=== PATIENT | female | born 1950 | race Caucasian/White ===

== ENCOUNTER 2017-05-25 14:04 | Inpatient (IN) | payer OTHER ==
[~2017-05-25] VITALS: Ht 157.5 cm; Wt 66.4 kg
[~2017-05-25 14:04] MED LIST: AMLO5TAB2 PO; ASPI-1005 PO; ATOR20TA65 PO; CARV25TA77 PO; DOXE25CA3 PO; EZET10 PO; FLUT16H NASAL; GUAI600T50 PO; INSULIN 70/30 SQ; LISI40TA4 PO; MULT-1258 PO; PARO-37 PO; ROPI1TAB11 PO; TRAM50TA4 PO; TRIAMCINOLON TP; iron PO; omega xl PO
[2017-05-25] MEDS ORDERED: ACETAMINOPHEN 325 MG TAB ONE (14:44)
[2017-05-25 14:45] LABS: BASOPHILS % (AUTO) 0.5 % (0.0-5.0); EOSINOPHILS % (AUTO) 1.3 % (0.0-8.0); HEMATOCRIT 35.9 % (36-48); LYMPHOCYTES % (AUTO) 4.2 % (21.0-51.0); MEAN CORPUSCULAR HEMOGLOBIN 29.8 pg (27.0-33.0); MEAN CORPUSCULAR HGB CONC 34.5 g/dL (32.0-36.0); MEAN CORPUSCULAR VOLUME 86.4 fL (79-99); MONOCYTES % (AUTO) 6.9 % (3.0-13.0); NEUTROPHILS % (AUTO) 87.1 % (40.0-77.0); PLATELET COUNT (AUTO) 112 K/uL (130-400); RED BLOOD CELL COUNT(AUTO) 4.15 MIL/uL (4.00-5.50); RED CELL DISTRIBUTION WIDTH 13.8 % (11.0-15.5)
[2017-05-25 14:46] LABS: CREATININE 7.3 mg/dL (0.5-1.5); POTASSIUM 4.9 mmol/L (3.5-5.1)
[2017-05-25 15:00] LABS: ALBUMIN 3.7 g/dL (3.5-5.0); BILIRUBIN,TOTAL 0.5 mg/dL (0.2-1.0); CREATINE KINASE MB 4.1 ng/mL (0.5-3.6)
[2017-05-25] MEDS ORDERED: CEFTRIAXONE SODIUM 1 GM ONE (17:57)
[2017-05-25] MEDS ORDERED: SODIUM CHLORIDE 0.9% 50 ML IV ONE (17:57)
[2017-05-25] MEDS ORDERED: IBUPROFEN 600 MG TABLET ONE (18:08)
[2017-05-25 18:25] VITALS: BP 183/93
[2017-05-25] MEDS ORDERED: ONDANSETRON HCL MDV 20ML 2 MG/ML VIAL IVP PRN (18:45)
[2017-05-25] MEDS ORDERED: ACETAMINOPHEN 325 MG TAB PO PRN ×2 (18:45)
[2017-05-25] MEDS ORDERED: CLONIDINE HCL 0.1 MG TABLET PO PRN (18:45)
[2017-05-25] MEDS ORDERED: LACTULOSE 20 GM/30 ML UDCUP PO PRN (18:45)
[2017-05-25] MEDS ORDERED: HYDR-3421 PO (18:51)
[2017-05-25] MEDS ORDERED: OXYMETAZOLINE HCL SPRAY 15 ML BOTTLE ONE (21:32)
[2017-05-25] MEDS ORDERED: GLUCAGON 1MG KIT 1 MG ML IM PRN (21:45)
[2017-05-25] MEDS ORDERED: DEXTROSE 50%-WATER 50 ML DISP.SYRIN IV PRN (21:45)
[2017-05-25] MEDS: INSULIN HUMULIN R 100 UNIT/ML 3ML SQ SCH (22:40)
[2017-05-25] MEDS ORDERED: VANCOMYCIN 1GM+NS 250ML 250 ML IV SCH (23:00)
[2017-05-25] MEDS ORDERED: VANCOMYCIN PROTOCOL PER PHARMACY IV SCH (23:00)
[2017-05-25 23:53] VITALS: BP 169/76
[2017-05-26 00:09] LABS: APPEARANCE,URINE Clear (CLEAR); BILIRUBIN,URINE Negative (NEGATIVE); COLOR,URINE Yellow (YELLOW); GLUCOSE, URINE (UA) 500 mg/dL (NEGATIVE); KETONES,URINE Negative (NEGATIVE); LEUKOCYTE ESTERASE ,URINE Negative (NEGATIVE); NITRATE,URINE Negative (NEGATIVE); OCCULT BLOOD,URINE Moderate (NEGATIVE); PH,URINE >=9.0 (5.0-8.0); PROTEIN,URINE >=1000 (NEGATIVE); UROBILINOGEN,URINE 0.2 mg/dL (0.2-1.0)
[2017-05-26 00:31] LABS: BACTERIA,URINE None Seen /HPF (None Seen); MUCUS,URINE Few LPF (None Seen); SQUAMOUS EPITHELIAL CELL,UR Few /HPF (0-2); WBC,URINE None Seen /HPF (0-1)
[2017-05-26 04:00] VITALS: BP 153/71
[2017-05-26] MEDS: INSULIN HUMULIN R 100 UNIT/ML 3ML SQ SCH ×4 (06:27→21:00)
[2017-05-26 08:23] VITALS: BP 127/70
[2017-05-26] MEDS ORDERED: ZOSYN 3.375GM+NS 50ML 50 ML IV SCH (09:15)
[2017-05-26] MEDS ORDERED: HYDROXYZINE HCL 25 MG TABLET PO PRN (10:00)
[2017-05-26 11:55] VITALS: BP 166/80
[2017-05-26] MEDS: MEROPENEM 1 GM VIAL IVP SCH ×2 (12:29→21:08)
[2017-05-26] MEDS: LORAZEPAM 2 MG/ML 1 ML VIAL IVP SCH (13:29)
[2017-05-26] MEDS: TRAMADOL HCL 50 MG TABLET PO PRN ×2 (13:29→21:38)
[2017-05-26] MEDS: ROPINIROLE HCL 1 MG TABLET PO SCH ×2 (15:00→21:09)
[2017-05-26 15:32] VITALS: BP 161/84
[2017-05-26] MEDS: HYDROMORPHONE 1 MG/1 ML AMP IVP PRN (17:27)
[2017-05-26] MEDS ORDERED: CEFTRIAXONE SODIUM 1 GM IVP SCH (18:00)
[2017-05-26 19:56] VITALS: BP 178/84
[2017-05-26] MEDS: FLUTICASONE PROPIONATE 50MCG/SPRAY 16 GM BOTTLE EN SCH (21:09)
[2017-05-26] MEDS: AMLODIPINE BESYLATE 5 MG TAB PO SCH (21:09)
[2017-05-26] MEDS: DOXEPIN HCL 25 MG CAP PO SCH (21:09)
[2017-05-26] MEDS: GUAIFENESIN 600 MG TABLET.ER PO SCH (21:09)
[2017-05-26] MEDS: CARVEDILOL 25 MG TABLET PO SCH (21:10)
[2017-05-26 23:54] VITALS: BP 152/75
[2017-05-27] MEDS: HYDROMORPHONE 1 MG/1 ML AMP IVP PRN ×3 (01:52→23:34)
[2017-05-27 04:00] VITALS: BP 138/60
[2017-05-27 04:40] LABS: HEMATOCRIT 31.6 % (36-48); MEAN CORPUSCULAR HEMOGLOBIN 30.1 pg (27.0-33.0); MEAN CORPUSCULAR HGB CONC 34.7 g/dL (32.0-36.0); MEAN CORPUSCULAR VOLUME 86.7 fL (79-99); PLATELET COUNT (AUTO) 94 K/uL (130-400); RED BLOOD CELL COUNT(AUTO) 3.64 MIL/uL (4.00-5.50); RED CELL DISTRIBUTION WIDTH 13.9 % (11.0-15.5)
[2017-05-27 04:59] LABS: POTASSIUM 4.3 mmol/L (3.5-5.1)
[2017-05-27 05:13] LABS: CREATININE 8.8 mg/dL (0.5-1.5)
[2017-05-27] MEDS ORDERED: LIDOCAINE/PRILOCAINE CREAM 30 GM TUBE TP SCH (06:00)
[2017-05-27] MEDS: INSULIN HUMULIN R 100 UNIT/ML 3ML SQ SCH ×4 (06:22→21:00)
[2017-05-27] MEDS: LORAZEPAM 2 MG/ML 1 ML VIAL IVP SCH (08:35)
[2017-05-27] MEDS: LISINOPRIL 40 MG TABLET PO SCH (09:00)
[2017-05-27] MEDS: CARVEDILOL 25 MG TABLET PO SCH ×2 (09:00→20:37)
[2017-05-27] MEDS: AMLODIPINE BESYLATE 5 MG TAB PO SCH ×2 (09:00→20:37)
[2017-05-27] MEDS ORDERED: HEPARIN SODIUM 5000UNIT/ML 1ML VIAL IJ PRN (09:30)
[2017-05-27] MEDS ORDERED: SODIUM CHLORIDE 0.9% 1000ML 1,000 ML IV PRN (09:30)
[2017-05-27] MEDS ORDERED: 0.9% SODIUM CHLORIDE 250 ML IV BAG IV PRN (09:30)
[2017-05-27] MEDS ORDERED: ALBUMIN (HUMAN) 25% 100 ML IV PRN (09:30)
[2017-05-27 10:07] VITALS: BP 132/80
[2017-05-27 12:29] VITALS: BP_SYST 117; BP_SYST 185; BP_DIAS 70; BP_DIAS 88
[2017-05-27] MEDS: ASPIRIN 81MG TAB.CHEW PO SCH (12:35)
[2017-05-27] MEDS: PAROXETINE HCL 20 MG TABLET PO SCH (12:35)
[2017-05-27] MEDS: ROPINIROLE HCL 1 MG TABLET PO SCH ×3 (12:35→20:37)
[2017-05-27] MEDS: GUAIFENESIN 600 MG TABLET.ER PO SCH ×2 (12:36→20:37)
[2017-05-27] MEDS: MEROPENEM 1 GM VIAL IVP SCH ×2 (12:40→20:42)
[2017-05-27] MEDS: FLUTICASONE PROPIONATE 50MCG/SPRAY 16 GM BOTTLE EN SCH ×2 (12:51→20:35)
[2017-05-27 17:35] VITALS: BP 157/72
[2017-05-27 19:00] VITALS: BP 166/73
[2017-05-27] MEDS: DOXEPIN HCL 25 MG CAP PO SCH (20:37)
[2017-05-27] MEDS: TRAMADOL HCL 50 MG TABLET PO PRN (20:48)
[2017-05-27 23:00] VITALS: BP 153/77
[2017-05-28 03:00] VITALS: BP 140/57
[2017-05-28 04:55] LABS: HEMATOCRIT 34.1 % (36-48); MEAN CORPUSCULAR HEMOGLOBIN 29.4 pg (27.0-33.0); MEAN CORPUSCULAR HGB CONC 33.3 g/dL (32.0-36.0); MEAN CORPUSCULAR VOLUME 88.1 fL (79-99); PLATELET COUNT (AUTO) 112 K/uL (130-400); RED BLOOD CELL COUNT(AUTO) 3.87 MIL/uL (4.00-5.50); RED CELL DISTRIBUTION WIDTH 14.4 % (11.0-15.5); WHITE BLOOD COUNT (AUTO) 8.2 K/uL (4.8-10.8)
[2017-05-28 05:17] LABS: CREATININE 5.9 mg/dL (0.5-1.5); POTASSIUM 3.6 mmol/L (3.5-5.1)
[2017-05-28] MEDS: HYDROMORPHONE 1 MG/1 ML AMP IVP PRN ×3 (05:32→22:19)
[2017-05-28] MEDS: INSULIN HUMULIN R 100 UNIT/ML 3ML SQ SCH ×4 (07:30→20:53)
[2017-05-28 08:11] VITALS: BP 136/73
[2017-05-28] MEDS: LISINOPRIL 40 MG TABLET PO SCH (09:22)
[2017-05-28] MEDS: PAROXETINE HCL 20 MG TABLET PO SCH (09:22)
[2017-05-28] MEDS: AMLODIPINE BESYLATE 5 MG TAB PO SCH ×2 (09:22→20:40)
[2017-05-28] MEDS: ROPINIROLE HCL 1 MG TABLET PO SCH ×3 (09:22→20:40)
[2017-05-28] MEDS: CARVEDILOL 25 MG TABLET PO SCH ×2 (09:23→20:41)
[2017-05-28] MEDS: MEROPENEM 1 GM VIAL IVP SCH ×2 (09:23→20:41)
[2017-05-28] MEDS: GUAIFENESIN 600 MG TABLET.ER PO SCH ×2 (09:23→20:40)
[2017-05-28] MEDS: ASPIRIN 81MG TAB.CHEW PO SCH (09:23)
[2017-05-28] MEDS: LORAZEPAM 2 MG/ML 1 ML VIAL IVP SCH (09:24)
[2017-05-28] MEDS: FLUTICASONE PROPIONATE 50MCG/SPRAY 16 GM BOTTLE EN SCH ×2 (09:25→20:43)
[2017-05-28 12:17] VITALS: BP 140/72
[2017-05-28 15:50] VITALS: BP 125/67
[2017-05-28 20:00] VITALS: BP 135/69
[2017-05-28] MEDS: DOXEPIN HCL 25 MG CAP PO SCH (20:40)
[2017-05-29] VITALS: BP 138/89
[2017-05-29 04:00] VITALS: BP 138/78
[2017-05-29] MEDS: HYDROMORPHONE 1 MG/1 ML AMP IVP PRN ×3 (04:16→18:39)
[2017-05-29 06:29] LABS: HEMATOCRIT 32.9 % (36-48); MEAN CORPUSCULAR HEMOGLOBIN 29.9 pg (27.0-33.0); MEAN CORPUSCULAR HGB CONC 34.5 g/dL (32.0-36.0); MEAN CORPUSCULAR VOLUME 86.5 fL (79-99); PLATELET COUNT (AUTO) 133 K/uL (130-400); WHITE BLOOD COUNT (AUTO) 5.9 K/uL (4.8-10.8)
[2017-05-29 06:36] LABS: CREATININE 7.2 mg/dL (0.5-1.5); POTASSIUM 4.4 mmol/L (3.5-5.1)
[2017-05-29] MEDS: TRAMADOL HCL 50 MG TABLET PO PRN ×2 (06:41→20:43)
[2017-05-29] MEDS: LORAZEPAM 2 MG/ML 1 ML VIAL IVP SCH (07:48)
[2017-05-29 08:19] VITALS: BP 147/73
[2017-05-29] MEDS: PAROXETINE HCL 20 MG TABLET PO SCH (09:01)
[2017-05-29] MEDS: AMLODIPINE BESYLATE 5 MG TAB PO SCH ×2 (09:01→20:44)
[2017-05-29] MEDS: ROPINIROLE HCL 1 MG TABLET PO SCH ×3 (09:02→20:43)
[2017-05-29] MEDS: GUAIFENESIN 600 MG TABLET.ER PO SCH ×2 (09:02→20:44)
[2017-05-29] MEDS: LISINOPRIL 40 MG TABLET PO SCH (09:02)
[2017-05-29] MEDS: CARVEDILOL 25 MG TABLET PO SCH ×2 (09:09→20:44)
[2017-05-29] MEDS: ASPIRIN 81MG TAB.CHEW PO SCH (09:09)
[2017-05-29] MEDS: MEROPENEM 1 GM VIAL IVP SCH ×2 (09:09→20:44)
[2017-05-29] MEDS: INSULIN HUMULIN R 100 UNIT/ML 3ML SQ SCH ×4 (09:28→20:58)
[2017-05-29] MEDS: FLUTICASONE PROPIONATE 50MCG/SPRAY 16 GM BOTTLE EN SCH ×2 (09:38→20:45)
[2017-05-29 11:38] VITALS: BP 152/67
[2017-05-29 16:56] VITALS: BP 116/59
[2017-05-29 20:00] VITALS: BP 138/68
[2017-05-29] MEDS: DOXEPIN HCL 25 MG CAP PO SCH (20:43)
[2017-05-29] MEDS ORDERED: VANCOMYCIN 1GM+NS 250ML 0 ML IV ONE (22:16)
[2017-05-30] VITALS (7 sets, daily range): BP systolic 119–157; BP diastolic 62–96
[2017-05-30] MEDS: HYDROMORPHONE 1 MG/1 ML AMP IVP PRN ×4 (00:30→19:06)
[2017-05-30] MEDS: TRAMADOL HCL 50 MG TABLET PO PRN ×3 (04:23→17:30)
[2017-05-30 05:59] LABS: HEMATOCRIT 32.5 % (36-48); MEAN CORPUSCULAR HEMOGLOBIN 31.2 pg (27.0-33.0); MEAN CORPUSCULAR HGB CONC 36.4 g/dL (32.0-36.0); MEAN CORPUSCULAR VOLUME 85.6 fL (79-99); NUCLEATED RED BLOOD CELLS 0.1 % (0.0-0.19); PLATELET COUNT (AUTO) 148 K/uL (130-400); WHITE BLOOD COUNT (AUTO) 5.5 K/uL (4.8-10.8)
[2017-05-30 06:09] LABS: ALBUMIN 2.8 g/dL (3.5-5.0); BILIRUBIN,TOTAL 0.9 mg/dL (0.2-1.0); PHOSPHORUS 7.9 mg/dL (2.5-4.9); POTASSIUM 4.7 mmol/L (3.5-5.1); TOTAL PROTEIN, SERUM 7.3 g/dL (6.0-8.3)
[2017-05-30] MEDS: INSULIN HUMULIN R 100 UNIT/ML 3ML SQ SCH ×4 (06:14→21:00)
[2017-05-30 06:18] LABS: CREATININE 8.4 mg/dL (0.5-1.5)
[2017-05-30] MEDS: AMLODIPINE BESYLATE 5 MG TAB PO SCH ×2 (09:19→21:07)
[2017-05-30] MEDS: MEROPENEM 1 GM VIAL IVP SCH ×2 (09:19→21:07)
[2017-05-30] MEDS: CARVEDILOL 25 MG TABLET PO SCH ×2 (09:20→21:08)
[2017-05-30] MEDS: ROPINIROLE HCL 1 MG TABLET PO SCH ×3 (09:20→21:07)
[2017-05-30] MEDS: ASPIRIN 81MG TAB.CHEW PO SCH (09:20)
[2017-05-30] MEDS: PAROXETINE HCL 20 MG TABLET PO SCH (09:20)
[2017-05-30] MEDS: GUAIFENESIN 600 MG TABLET.ER PO SCH ×2 (09:20→21:08)
[2017-05-30] MEDS: LISINOPRIL 40 MG TABLET PO SCH (09:20)
[2017-05-30] MEDS: FLUTICASONE PROPIONATE 50MCG/SPRAY 16 GM BOTTLE EN SCH ×2 (09:26→21:20)
[2017-05-30] MEDS ORDERED: CEFAZOLIN 2GM / 50 ML 50 ML IV SCH (09:30)
[2017-05-30] MEDS: LORAZEPAM 2 MG/ML 1 ML VIAL IVP SCH (13:30)
[2017-05-30] MEDS: DOXEPIN HCL 25 MG CAP PO SCH (21:07)
[2017-05-31] MEDS: HYDROMORPHONE 1 MG/1 ML AMP IVP PRN ×5 (00:55→21:58)
[2017-05-31 04:00] VITALS: BP 158/72
[2017-05-31 06:30] LABS: CREATININE 6.1 mg/dL (0.5-1.5); POTASSIUM 4.4 mmol/L (3.5-5.1)
[2017-05-31] MEDS: INSULIN HUMULIN R 100 UNIT/ML 3ML SQ SCH ×4 (07:30→20:57)
[2017-05-31] MEDS: CEFAZOLIN SODIUM 1 GM VIAL IVP SCH (07:45)
[2017-05-31 08:00] VITALS: BP 139/72
[2017-05-31] MEDS: GUAIFENESIN 600 MG TABLET.ER PO SCH ×2 (09:46→20:51)
[2017-05-31] MEDS: ROPINIROLE HCL 1 MG TABLET PO SCH ×3 (09:46→20:51)
[2017-05-31] MEDS: MEROPENEM 1 GM VIAL IVP SCH (09:47)
[2017-05-31] MEDS: CARVEDILOL 25 MG TABLET PO SCH ×2 (09:47→20:52)
[2017-05-31] MEDS: AMLODIPINE BESYLATE 5 MG TAB PO SCH ×2 (09:47→20:51)
[2017-05-31] MEDS: LISINOPRIL 40 MG TABLET PO SCH (09:47)
[2017-05-31] MEDS: PAROXETINE HCL 20 MG TABLET PO SCH (09:47)
[2017-05-31] MEDS: ASPIRIN 81MG TAB.CHEW PO SCH (09:47)
[2017-05-31] MEDS: FLUTICASONE PROPIONATE 50MCG/SPRAY 16 GM BOTTLE EN SCH ×2 (09:50→20:51)
[2017-05-31 11:00] VITALS: BP 159/76
[2017-05-31 16:00] VITALS: BP 131/68
[2017-05-31 20:00] VITALS: BP 153/74
[2017-05-31] MEDS: DOXEPIN HCL 25 MG CAP PO SCH (20:51)
[2017-06-01] VITALS (7 sets, daily range): BP systolic 129–163; BP diastolic 65–86
[2017-06-01] MEDS: HYDROMORPHONE 1 MG/1 ML AMP IVP PRN ×5 (03:04→20:53)
[2017-06-01 04:54] LABS: HEMATOCRIT 29.5 % (36-48); MEAN CORPUSCULAR HEMOGLOBIN 30.5 pg (27.0-33.0); MEAN CORPUSCULAR HGB CONC 35.4 g/dL (32.0-36.0); PLATELET COUNT (AUTO) 146 K/uL (130-400); RED BLOOD CELL COUNT(AUTO) 3.42 MIL/uL (4.00-5.50); RED CELL DISTRIBUTION WIDTH 13.8 % (11.0-15.5); WHITE BLOOD COUNT (AUTO) 8.4 K/uL (4.8-10.8)
[2017-06-01 05:03] LABS: CREATININE 7.3 mg/dL (0.5-1.5); POTASSIUM 4.7 mmol/L (3.5-5.1)
[2017-06-01] MEDS: INSULIN HUMULIN R 100 UNIT/ML 3ML SQ SCH ×4 (06:29→21:03)
[2017-06-01] MEDS: LISINOPRIL 40 MG TABLET PO SCH (08:12)
[2017-06-01] MEDS: ROPINIROLE HCL 1 MG TABLET PO SCH ×3 (08:12→20:54)
[2017-06-01] MEDS: GUAIFENESIN 600 MG TABLET.ER PO SCH ×2 (08:12→20:53)
[2017-06-01] MEDS: AMLODIPINE BESYLATE 5 MG TAB PO SCH ×2 (08:12→20:54)
[2017-06-01] MEDS: ASPIRIN 81MG TAB.CHEW PO SCH (08:12)
[2017-06-01] MEDS: PAROXETINE HCL 20 MG TABLET PO SCH (08:12)
[2017-06-01] MEDS: CARVEDILOL 25 MG TABLET PO SCH ×2 (08:14→20:54)
[2017-06-01] MEDS ORDERED: VANCOMYCIN 1GM+NS 250ML 250 ML IV SCH (09:00)
[2017-06-01] MEDS: FLUTICASONE PROPIONATE 50MCG/SPRAY 16 GM BOTTLE EN SCH ×2 (10:17→21:00)
[2017-06-01] MEDS: CEFAZOLIN SODIUM 1 GM VIAL IVP SCH (19:30)
[2017-06-01] MEDS: DOXEPIN HCL 25 MG CAP PO SCH (20:54)
[2017-06-02] MEDS: HYDROMORPHONE 1 MG/1 ML AMP IVP PRN ×6 (00:49→21:50)
[2017-06-02 03:46] VITALS: BP 134/69
[2017-06-02] MEDS: INSULIN HUMULIN R 100 UNIT/ML 3ML SQ SCH ×4 (07:30→21:41)
[2017-06-02 08:00] VITALS: BP 142/77
[2017-06-02] MEDS: PAROXETINE HCL 20 MG TABLET PO SCH (08:56)
[2017-06-02] MEDS: GUAIFENESIN 600 MG TABLET.ER PO SCH ×2 (08:56→21:36)
[2017-06-02] MEDS: ASPIRIN 81MG TAB.CHEW PO SCH (08:56)
[2017-06-02] MEDS: CARVEDILOL 25 MG TABLET PO SCH ×2 (08:56→21:37)
[2017-06-02] MEDS: AMLODIPINE BESYLATE 5 MG TAB PO SCH ×2 (08:57→21:37)
[2017-06-02] MEDS: ROPINIROLE HCL 1 MG TABLET PO SCH ×3 (08:57→21:36)
[2017-06-02] MEDS: FLUTICASONE PROPIONATE 50MCG/SPRAY 16 GM BOTTLE EN SCH ×2 (09:05→21:36)
[2017-06-02] MEDS: LISINOPRIL 40 MG TABLET PO SCH (09:08)
[2017-06-02 12:00] VITALS: BP 162/77
[2017-06-02 16:00] VITALS: BP 138/65
[2017-06-02 19:29] VITALS: BP 139/67
[2017-06-02] MEDS: TRAMADOL HCL 50 MG TABLET PO PRN (19:56)
[2017-06-02] MEDS: DOXEPIN HCL 25 MG CAP PO SCH (21:37)
[2017-06-02 23:32] VITALS: BP 142/65
[2017-06-03] MEDS: HYDROMORPHONE 1 MG/1 ML AMP IVP PRN ×4 (01:56→15:22)
[2017-06-03 03:45] VITALS: BP 122/67
[2017-06-03] MEDS: INSULIN HUMULIN R 100 UNIT/ML 3ML SQ SCH ×2 (06:27→11:30)
[2017-06-03 07:00] VITALS: BP 134/84
[2017-06-03] MEDS: LISINOPRIL 40 MG TABLET PO SCH (08:00)
[2017-06-03] MEDS: ROPINIROLE HCL 1 MG TABLET PO SCH ×2 (08:39→15:21)
[2017-06-03] MEDS: GUAIFENESIN 600 MG TABLET.ER PO SCH (08:39)
[2017-06-03] MEDS: PAROXETINE HCL 20 MG TABLET PO SCH (08:39)
[2017-06-03] MEDS: ASPIRIN 81MG TAB.CHEW PO SCH (08:40)
[2017-06-03] MEDS: FLUTICASONE PROPIONATE 50MCG/SPRAY 16 GM BOTTLE EN SCH (08:40)
[2017-06-03] MEDS: CARVEDILOL 25 MG TABLET PO SCH (09:00)
[2017-06-03] MEDS: AMLODIPINE BESYLATE 5 MG TAB PO SCH (09:00)
[2017-06-03] MEDS ORDERED: DOXE50CA4 PO (10:29)
[2017-06-03 11:20] VITALS: BP 131/79
[2017-06-03] MEDS ORDERED: SODIUM CHLORIDE 0.9% 100 ML IV ONE (14:58)
[2017-06-03] MEDS: CEFAZOLIN SODIUM 1 GM VIAL IVP SCH (15:20)
== END 2017-06-03 17:15 | disposition home or self-care (01) | DRG 871 ==
LOC: EDH 14:04 → OBSVTOIN 17:30 → 3CH 17:30
PROVIDERS: ADMIT Family Medicine; ATTEND Family Medicine
PROC: 5A1D70Z Performance of Urinary Filtration, Intermittent, Less than 6 Hours Per Day (ICD-10-PCS; principal; 2017-05-27)
PROC: 5A1D70Z Performance of Urinary Filtration, Intermittent, Less than 6 Hours Per Day (ICD-10-PCS; 2017-05-30)
PROC: 5A1D70Z Performance of Urinary Filtration, Intermittent, Less than 6 Hours Per Day (ICD-10-PCS; 2017-06-01)
PROC: 5A1D70Z Performance of Urinary Filtration, Intermittent, Less than 6 Hours Per Day (ICD-10-PCS; 2017-06-03)
DX: A41.01 Sepsis due to Methicillin susceptible Staphylococcus aureus (principal); N18.6 End stage renal disease; I13.2 Hypertensive heart and chronic kidney disease with heart failure and with stage 5 chronic kidney disease, or end stage renal disease; E11.21 Type 2 diabetes mellitus with diabetic nephropathy; E11.40 Type 2 diabetes mellitus with diabetic neuropathy, unspecified; L02.214 Cutaneous abscess of groin; R45.851 Suicidal ideations; E11.22 Type 2 diabetes mellitus with diabetic chronic kidney disease; B96.89 Other specified bacterial agents as the cause of diseases classified elsewhere; D64.9 Anemia, unspecified; E11.51 Type 2 diabetes mellitus with diabetic peripheral angiopathy without gangrene; E78.5 Hyperlipidemia, unspecified; F32.9 Major depressive disorder, single episode, unspecified; I25.10 Atherosclerotic heart disease of native coronary artery without angina pectoris; I50.9 Heart failure, unspecified; M47.812 Spondylosis without myelopathy or radiculopathy, cervical region; M50.322 Other cervical disc degeneration at C5-C6 level; R32 Unspecified urinary incontinence; Z95.1 Presence of aortocoronary bypass graft; Z99.2 Dependence on renal dialysis; Z82.49 Family history of ischemic heart disease and other diseases of the circulatory system; Z83.3 Family history of diabetes mellitus
CPT/HCPCS: 36415; 71045; 71250; 72125; 72141; 80048; 80053; 81001; 82550; 82553; 82607; 82948; 83605; 84100; 85025; 85027; 87040; 87088; 87186; 87804; 90935; 93306; A4218; A4344; J0690; J0696; J1170; J1644; J1815; J2060; J2185; J3370

== ENCOUNTER 2017-06-15 21:49 | Observation (INO) | payer OTHER ==
[~2017-06-15] VITALS: Ht 162.6 cm; Wt 69.0 kg
[~2017-06-15 21:49] MED LIST changes: -ATOR20TA65 PO; -DOXE25CA3 PO; +DOXE50CA4 PO; -EZET10 PO; +HYDR-3421 PO; -MULT-1258 PO; -TRIAMCINOLON TP; -iron PO; -omega xl PO
[2017-06-15] MEDS ORDERED: ASPIRIN 325 MG TABLET ONE (22:31)
[2017-06-15 22:46] LABS: BASOPHILS % (AUTO) 0.7 % (0.0-5.0); EOSINOPHILS % (AUTO) 6.1 % (0.0-8.0); HEMATOCRIT 24.2 % (36-48); LYMPHOCYTES % (AUTO) 7.5 % (21.0-51.0); MEAN CORPUSCULAR HEMOGLOBIN 30.9 pg (27.0-33.0); MEAN CORPUSCULAR HGB CONC 35.3 g/dL (32.0-36.0); MEAN CORPUSCULAR VOLUME 87.6 fL (79-99); MONOCYTES % (AUTO) 8.8 % (3.0-13.0); NEUTROPHILS % (AUTO) 76.9 % (40.0-77.0); PLATELET COUNT (AUTO) 159 K/uL (130-400); RED BLOOD CELL COUNT(AUTO) 2.76 MIL/uL (4.00-5.50); WHITE BLOOD COUNT (AUTO) 6.7 K/uL (4.8-10.8)
[2017-06-15 22:56] LABS: CREATININE 6.4 mg/dL (0.5-1.5); POTASSIUM 5.3 mmol/L (3.5-5.1)
[2017-06-15 23:03] LABS: B-TYPE NATRIURETIC PEPTIDE 1070 pg/mL (0-100); RAPID GROUP A STREP NEGATIVE (NEGATIVE)
[2017-06-15 23:09] LABS: BILIRUBIN,TOTAL 0.4 mg/dL (0.2-1.0); CREATINE KINASE MB 1.7 ng/mL (0.5-3.6); TOTAL PROTEIN, SERUM 7.4 g/dL (6.0-8.3)
[2017-06-15 23:22] LABS: INR 1.13 (0.85-1.15); PARTIAL THROMBOPLASTIN TIME 27.8 SEC (26.3-35.5); PROTHROMBIN TIME 11.8 SEC (9.6-11.6)
[2017-06-16] MEDS ORDERED: IOPAMIDOL-370 75 ML VIAL IV ONE (00:24)
[2017-06-16 00:25] LABS: ABG HCO3 22.7 mmol/L (21.0-28.0); ABG OXYGEN SATURATION 98.1 % (95.0-99.0); ABG PCO2 35 mmHg (32-45)
[2017-06-16] MEDS ORDERED: SODIUM CHLORIDE 0.9% 1000ML 1,000 ML IV ONE (04:16)
[2017-06-16 05:35] LABS: BASOPHILS % (AUTO) 0.3 % (0.0-5.0); EOSINOPHILS % (AUTO) 6.2 % (0.0-8.0); HEMATOCRIT 22.3 % (36-48); LYMPHOCYTES % (AUTO) 10.6 % (21.0-51.0); MEAN CORPUSCULAR HEMOGLOBIN 29.8 pg (27.0-33.0); MEAN CORPUSCULAR HGB CONC 34.1 g/dL (32.0-36.0); MEAN CORPUSCULAR VOLUME 87.3 fL (79-99); MONOCYTES % (AUTO) 9.3 % (3.0-13.0); NEUTROPHILS % (AUTO) 73.6 % (40.0-77.0); PLATELET COUNT (AUTO) 148 K/uL (130-400); RED BLOOD CELL COUNT(AUTO) 2.56 MIL/uL (4.00-5.50); RED CELL DISTRIBUTION WIDTH 13.7 % (11.0-15.5); WHITE BLOOD COUNT (AUTO) 5.2 K/uL (4.8-10.8)
[2017-06-16 05:44] LABS: CARBON DIOXIDE 23 mmol/L (21-32); CHLORIDE 97 mmol/L (101-111); CREATININE 6.7 mg/dL (0.5-1.5); GLOMERULAR FILTR. RATE CALC 7 mL/min (>60); GLUCOSE,RANDOM 264 mg/dL (70-105); SODIUM SERUM 132 mmol/L (136-145); UREA NITROGEN, BLOOD 53 mg/dL (7-18)
[2017-06-16 05:49] LABS: ALBUMIN 2.6 g/dL (3.5-5.0); ASPARTATE AMINOTRANSFERASE 17 U/L (10-37); BILIRUBIN,TOTAL 0.4 mg/dL (0.2-1.0); TOTAL PROTEIN, SERUM 6.7 g/dL (6.0-8.3)
[2017-06-16] MEDS ORDERED: FUROSEMIDE 10 MG/ML 4ML VIAL ONE (05:58)
[2017-06-16] MEDS ORDERED: HYDRALAZINE HCL 20 MG/ML VIAL ONE (05:58)
[2017-06-16] MEDS ORDERED: CEFTRIAXONE SODIUM 1 GM ONE (05:59)
[2017-06-16 06:16] LABS: ALANINE AMINOTRANSFERASE < 6 U/L (12-78)
[2017-06-16] MEDS ORDERED: AZITHROMYCIN 500MG+NS 250ML 250 ML IV ONE (07:48)
[2017-06-16 08:15] VITALS: BP 194/83
[2017-06-16] MEDS ORDERED: CLONIDINE HCL 0.1 MG TABLET ONE (08:38)
[2017-06-16] MEDS ORDERED: SODIUM CHLORIDE 0.9% 1000ML 1,000 ML IV SCH (08:45)
[2017-06-16] MEDS ORDERED: AZITHROMYCIN 500MG+NS 250ML 250 ML IV SCH (08:45)
[2017-06-16] MEDS ORDERED: DEXTROSE 50%-WATER 50 ML DISP.SYRIN IV PRN (08:45)
[2017-06-16] MEDS ORDERED: LACTULOSE 20 GM/30 ML UDCUP PO PRN (08:45)
[2017-06-16] MEDS ORDERED: GLUCAGON 1MG KIT 1 MG ML IM PRN (08:45)
[2017-06-16] MEDS ORDERED: FUROSEMIDE 10 MG/ML 2ML VIAL IVP SCH (08:45)
[2017-06-16] MEDS ORDERED: HYDRALAZINE HCL 20 MG/ML VIAL IV PRN (08:45)
[2017-06-16] MEDS ORDERED: ACETAMINOPHEN 325 MG TAB PO PRN ×2 (08:45)
[2017-06-16] MEDS ORDERED: NITROGLYCERIN 0.4 MG SL TAB SL PRN (08:45)
[2017-06-16] MEDS ORDERED: CLONIDINE HCL 0.1 MG TABLET PO PRN (08:45)
[2017-06-16] MEDS ORDERED: CEFTRIAXONE SODIUM 1 GM IVP SCH (09:00)
[2017-06-16] MEDS ORDERED: FOLI1TAB61 PO (09:26)
[2017-06-16] MEDS ORDERED: OMEG-109 PO (09:27)
[2017-06-16] MEDS ORDERED: EPOETIN ALFA 20,000 UNIT/ML VIAL SQ SCH (09:30)
[2017-06-16] MEDS ORDERED: EPOETIN ALFA 10,000 UNIT/ML VIAL SQ SCH (09:30)
[2017-06-16] MEDS: IPRATROPIUM/ALBUTEROL SULFATE 3 ML SOLUTION IH SCH ×3 (11:08→23:46)
[2017-06-16] MEDS ORDERED: COMPOUND IV MISC 1 EACH IVSOLN MISC PRN (11:45)
[2017-06-16 12:00] VITALS: BP 150/73
[2017-06-16] MEDS: INSULIN R PO SSI SQ SCH ×3 (12:18→21:24)
[2017-06-16] MEDS: FAMOTIDINE 20MG TAB 20 MG TAB PO SCH ×2 (12:20→20:27)
[2017-06-16 16:00] VITALS: BP 161/68
[2017-06-16 19:46] VITALS: BP 161/73
[2017-06-16] MEDS ORDERED: CARVEDILOL 25 MG TABLET PO SCH (21:00)
[2017-06-16] MEDS ORDERED: AMLODIPINE BESYLATE 5 MG TAB PO SCH (21:00)
[2017-06-16 23:34] VITALS: BP 161/96
[2017-06-17 04:28] VITALS: BP 167/77
[2017-06-17 04:56] LABS: HEMATOCRIT 22.2 % (36-48)
[2017-06-17 05:09] LABS: CREATININE 7.4 mg/dL (0.5-1.5); POTASSIUM 5.1 mmol/L (3.5-5.1)
[2017-06-17] MEDS: INSULIN R PO SSI SQ SCH (05:59)
[2017-06-17] MEDS: IPRATROPIUM/ALBUTEROL SULFATE 3 ML SOLUTION IH SCH (07:21)
[2017-06-17 07:45] VITALS: BP 185/77
[2017-06-17] MEDS ORDERED: LISINOPRIL 40 MG TABLET PO SCH (08:00)
[2017-06-17] MEDS ORDERED: LIDO5CRE18 TP (08:33)
[2017-06-17] MEDS ORDERED: CEFTRIAXONE SODIUM 1 GM IVP SCH (09:00)
[2017-06-17] MEDS ORDERED: IRON SUCROSE COMPLEX 100 MG in SODIUM CHLORIDE 0.9% 50 ML IV SCH (09:00)
[2017-06-17] MEDS ORDERED: AZITHROMYCIN 500MG+NS 250ML 250 ML IV SCH (09:00)
== END 2017-06-17 10:26 | disposition home or self-care (01) ==
LOC: EDH 21:49 → EDHIP 06-16 00:50 → 4BH 06-16 08:15
PROVIDERS: ADMIT Internal Medicine; ATTEND Internal Medicine
DX: R53.1 Weakness (principal); I13.2 Hypertensive heart and chronic kidney disease with heart failure and with stage 5 chronic kidney disease, or end stage renal disease; E11.22 Type 2 diabetes mellitus with diabetic chronic kidney disease; E11.40 Type 2 diabetes mellitus with diabetic neuropathy, unspecified; D63.8 Anemia in other chronic diseases classified elsewhere; N18.6 End stage renal disease; E78.5 Hyperlipidemia, unspecified; I25.10 Atherosclerotic heart disease of native coronary artery without angina pectoris; G89.4 Chronic pain syndrome; I50.9 Heart failure, unspecified; I25.2 Old myocardial infarction; F41.9 Anxiety disorder, unspecified; Z85.840 Personal history of malignant neoplasm of eye; Z95.1 Presence of aortocoronary bypass graft; Z99.2 Dependence on renal dialysis; Z96.662 Presence of left artificial ankle joint
CPT/HCPCS: 36415 ×3; 36600; 71045; 71275; 80048; 80053 ×2; 82550; 82553; 82803; 82948 ×4; 83605; 83690; 83874; 83880; 84484; 85014; 85018; 85025 ×2; 85610; 85730; 87804 ×2; 87880; 93005; 94640 ×3; 94664; 96372; 99285; G0378 ×34; J0360; J0456; J0696; J0885; J1756; J1815 ×2; J1940; J7030; Q9967

== ENCOUNTER 2017-06-26 19:03 | Observation (INO) | payer OTHER ==
[~2017-06-26] VITALS: Ht 162.6 cm; Wt 68.0 kg
[~2017-06-26 19:03] MED LIST changes: +FOLI1TAB61 PO; -GUAI600T50 PO; -HYDR-3421 PO; -INSULIN 70/30 SQ; +LIDO5CRE18 TP; +OMEG-109 PO; -TRAM50TA4 PO
[2017-06-26 21:27] LABS: BASOPHILS % (AUTO) 0.7 % (0.0-5.0); EOSINOPHILS % (AUTO) 6.5 % (0.0-8.0); HEMATOCRIT 24.9 % (36-48); LYMPHOCYTES % (AUTO) 8.3 % (21.0-51.0); MEAN CORPUSCULAR HEMOGLOBIN 30.2 pg (27.0-33.0); MEAN CORPUSCULAR HGB CONC 34.1 g/dL (32.0-36.0); MEAN CORPUSCULAR VOLUME 88.7 fL (79-99); NEUTROPHILS % (AUTO) 77.5 % (40.0-77.0); PLATELET COUNT (AUTO) 224 K/uL (130-400); RED BLOOD CELL COUNT(AUTO) 2.81 MIL/uL (4.00-5.50); WHITE BLOOD COUNT (AUTO) 8.7 K/uL (4.8-10.8)
[2017-06-26] MEDS ORDERED: NITROGLYCERIN 0.4 MG SL TAB SL ONE (21:28)
[2017-06-26 21:30] LABS: CARBON DIOXIDE 31 mmol/L (21-32); CHLORIDE 96 mmol/L (101-111); CREATININE 5.5 mg/dL (0.5-1.5); GLOMERULAR FILTR. RATE CALC 8 mL/min (>60); GLUCOSE,RANDOM 211 mg/dL (70-105); POTASSIUM 5.4 mmol/L (3.5-5.1); SODIUM SERUM 132 mmol/L (136-145); UREA NITROGEN, BLOOD 41 mg/dL (7-18)
[2017-06-26 21:45] LABS: ALANINE AMINOTRANSFERASE 17 U/L (12-78); ALBUMIN 3.1 g/dL (3.5-5.0); ASPARTATE AMINOTRANSFERASE 20 U/L (10-37); BILIRUBIN,TOTAL 0.5 mg/dL (0.2-1.0); CREATINE KINASE MB 3.2 ng/mL (0.5-3.6); CREATINE KINASE, TOTAL 63 U/L (21-232); MYOGLOBIN 176 ng/mL (10-92); TOTAL PROTEIN, SERUM 7.5 g/dL (6.0-8.3); TROPONIN I < 0.04 ng/mL (0.00-0.06)
[2017-06-27] MEDS ORDERED: OXYMETAZOLINE HCL SPRAY 15 ML BOTTLE ONE (00:07)
[2017-06-27 01:04] VITALS: BP 145/79
[2017-06-27] MEDS ORDERED: HYDRALAZINE HCL 20 MG/ML VIAL IV PRN (01:15)
[2017-06-27] MEDS: NITROGLYCERIN 1GM/1 INCH PACKET TD SCH ×2 (01:15→08:10)
[2017-06-27] MEDS ORDERED: GLUCAGON 1MG KIT 1 MG ML IM PRN (01:15)
[2017-06-27] MEDS ORDERED: DEXTROSE 50%-WATER 50 ML DISP.SYRIN IV PRN (01:15)
[2017-06-27] MEDS: INSULIN HUMULIN R 100 UNIT/ML 3ML SQ SCH ×2 (01:15→05:53)
[2017-06-27] MEDS ORDERED: ONDANSETRON HCL MDV 20ML 2 MG/ML VIAL IV PRN (01:15)
[2017-06-27 03:58] VITALS: BP 169/87
[2017-06-27 04:28] LABS: CREATINE KINASE MB 4.4 ng/mL (0.5-3.6); CREATINE KINASE, TOTAL 67 U/L (21-232); MYOGLOBIN 180 ng/mL (10-92); TROPONIN I < 0.04 ng/mL (0.00-0.06)
[2017-06-27] MEDS ORDERED: AEC81 PO (05:06)
[2017-06-27] MEDS ORDERED: TRAM50TA4 PO (05:06)
[2017-06-27] MEDS ORDERED: FOLI1TAB61 PO (05:06)
[2017-06-27] MEDS ORDERED: LISI40TA4 PO (05:06)
[2017-06-27] MEDS ORDERED: KRIL1CAP29 PO (05:06)
[2017-06-27] MEDS ORDERED: HYDR-3421 PO (05:06)
[2017-06-27 07:28] VITALS: BP 110/56
[2017-06-27] MEDS ORDERED: LIDOCAINE/PRILOCAINE CREAM 5GM TUBE TP SCH (07:45)
[2017-06-27] MEDS ORDERED: IPRATROPIUM/ALBUTEROL SULFATE 3 ML SOLUTION IH PRN (08:15)
[2017-06-27] MEDS ORDERED: LISINOPRIL 40 MG TABLET PO SCH (09:00)
[2017-06-27] MEDS ORDERED: ROPINIROLE HCL 1 MG TABLET PO SCH (09:00)
[2017-06-27] MEDS ORDERED: PAROXETINE HCL 20 MG TABLET PO SCH (09:00)
[2017-06-27] MEDS ORDERED: AMLODIPINE BESYLATE 5 MG TAB PO SCH (09:00)
[2017-06-27] MEDS ORDERED: ASPIRIN 81 MG EC TAB PO SCH (09:00)
[2017-06-27] MEDS ORDERED: CARVEDILOL 25 MG TABLET PO SCH (09:00)
[2017-06-27] MEDS ORDERED: PANTOPRAZOLE 40 MG/VIAL IVP SCH (09:00)
[2017-06-27] MEDS ORDERED: FLUTICASONE PROPIONATE 50MCG/SPRAY 16 GM BOTTLE EN SCH (09:00)
[2017-06-27] MEDS ORDERED: ENOXAPARIN SODIUM 30 MG/0.3 ML SQ SCH (09:00)
[2017-06-27] MEDS ORDERED: FISH OIL 1000 MG/CAP PO SCH (09:00)
[2017-06-27] MEDS ORDERED: DOXEPIN HCL 25 MG CAP PO SCH (21:00)
== END 2017-06-27 09:50 | disposition home or self-care (01) ==
LOC: EDH 19:03 → 2DH 23:25
PROVIDERS: ADMIT Internal Medicine; ATTEND Internal Medicine
DX: R07.89 Other chest pain (principal); I12.0 Hypertensive chronic kidney disease with stage 5 chronic kidney disease or end stage renal disease; N18.6 End stage renal disease; E11.22 Type 2 diabetes mellitus with diabetic chronic kidney disease; E78.5 Hyperlipidemia, unspecified; I25.10 Atherosclerotic heart disease of native coronary artery without angina pectoris; J81.1 Chronic pulmonary edema; I25.2 Old myocardial infarction; Z95.1 Presence of aortocoronary bypass graft; Z99.2 Dependence on renal dialysis; Z96.662 Presence of left artificial ankle joint
CPT/HCPCS: 36415 ×2; 71045; 80053; 82550 ×2; 82553 ×2; 82948; 83874 ×2; 83880; 84484 ×3; 85025; 85378; 93005 ×2; 94664; 99291; C9113; G0378 ×10; J3490

== ENCOUNTER 2018-01-01 17:02 | Inpatient (IN) | payer OTHER ==
[~2018-01-01] VITALS: Ht 162.6 cm; Wt 70.2 kg
[~2018-01-01 17:02] MED LIST changes: +AEC81 PO; -AMLO5TAB2 PO; +AMLO5TAB7 PO; -ASPI-1005 PO; +HYDR-3421 PO; +KRIL1CAP29 PO; -OMEG-109 PO; +TRAM50TA4 PO
[2018-01-01] MEDS ORDERED: ONDANSETRON HCL 4 MG/2 ML VIAL ONE (17:15)
[2018-01-01] MEDS ORDERED: SODIUM BICARB 50MEQ 50ML VIAL ONE (17:16)
[2018-01-01] MEDS ORDERED: CALCIUM GLUCONATE 1 GM/10 ML VIAL IV ONE ×2 (17:18→18:14)
[2018-01-01] MEDS ORDERED: SODIUM CHLORIDE 0.9% 50 ML IV ONE ×2 (17:18→18:15)
[2018-01-01 17:19] LABS: ABG BASE EXCESS -2.9 mmol/L (-2.0-3.0); ABG HCO3 21.1 mmol/L (21.0-28.0); ABG OXYGEN SATURATION 94.6 % (95.0-99.0); ABG PCO2 33 mmHg (32-45)
[2018-01-01] MEDS ORDERED: INSULIN HUMULIN R 100 UNIT/ML 3ML ONE ×2 (17:24→17:51)
[2018-01-01] MEDS ORDERED: ALBUTEROL SULFATE 0.083% 2.5 MG/3 ML INH IH ONE ×2 (17:37→18:00)
[2018-01-01 17:50] LABS: BASOPHILS % (AUTO) 0.1 % (0.0-5.0); EOSINOPHILS % (AUTO) 0.5 % (0.0-8.0); HEMATOCRIT 27.9 % (36-48); LYMPHOCYTES % (AUTO) 8.8 % (21.0-51.0); MEAN CORPUSCULAR HEMOGLOBIN 30.9 pg (27.0-33.0); MEAN CORPUSCULAR HGB CONC 33.5 g/dL (32.0-36.0); MEAN CORPUSCULAR VOLUME 92.2 fL (79-99); MONOCYTES % (AUTO) 0.6 % (3.0-13.0); NUCLEATED RED BLOOD CELLS 0.2 % (0.0-0.19); PLATELET COUNT (AUTO) 197 K/uL (130-400); RED BLOOD CELL COUNT(AUTO) 3.03 MIL/uL (4.00-5.50); RED CELL DISTRIBUTION WIDTH 17.2 % (11.0-15.5); WHITE BLOOD COUNT (AUTO) 7.7 K/uL (4.8-10.8)
[2018-01-01 18:04] LABS: CREATININE 6.4 mg/dL (0.5-1.5)
[2018-01-01] MEDS ORDERED: GLUCAGON 1MG KIT 1 MG ML IM PRN (18:30)
[2018-01-01] MEDS ORDERED: ACETAMINOPHEN 325 MG TAB PO PRN (18:30)
[2018-01-01] MEDS ORDERED: ONDANSETRON HCL 4 MG/2 ML VIAL IVP PRN (18:30)
[2018-01-01] MEDS ORDERED: DEXTROSE 50%-WATER 50 ML DISP.SYRIN IV PRN (18:30)
[2018-01-01] MEDS ORDERED: SODIUM CHLORIDE 0.9% 1000ML 2,000 ML IV ONE (19:50)
[2018-01-01 20:03] VITALS: BP 163/73
[2018-01-01] MEDS ORDERED: ALBUMIN (HUMAN) 25% 100 ML IV PRN (20:15)
[2018-01-01] MEDS ORDERED: SODIUM CHLORIDE 0.9% 1000ML 1,000 ML IV PRN (20:15)
[2018-01-01] MEDS ORDERED: 0.9% SODIUM CHLORIDE 250 ML IV BAG IV PRN (20:15)
[2018-01-01] MEDS: INSULIN R PO SS1 SQ SCH (21:00)
[2018-01-01 23:59] VITALS: BP 140/57
[2018-01-02 04:08] VITALS: BP 146/75
[2018-01-02 04:08] LABS: BASOPHILS % (AUTO) 0.6 % (0.0-5.0); EOSINOPHILS % (AUTO) 1.9 % (0.0-8.0); LYMPHOCYTES % (AUTO) 11.5 % (21.0-51.0); MEAN CORPUSCULAR HEMOGLOBIN 31.1 pg (27.0-33.0); MEAN CORPUSCULAR HGB CONC 34.1 g/dL (32.0-36.0); MEAN CORPUSCULAR VOLUME 91.2 fL (79-99); MONOCYTES % (AUTO) 7.4 % (3.0-13.0); NEUTROPHILS % (AUTO) 78.6 % (40.0-77.0); PLATELET COUNT (AUTO) 207 K/uL (130-400); RED BLOOD CELL COUNT(AUTO) 2.96 MIL/uL (4.00-5.50); RED CELL DISTRIBUTION WIDTH 17.1 % (11.0-15.5); WHITE BLOOD COUNT (AUTO) 7.5 K/uL (4.8-10.8)
[2018-01-02 04:28] LABS: ALBUMIN 3.4 g/dL (3.5-5.0); BILIRUBIN,TOTAL 0.4 mg/dL (0.2-1.0); CREATININE 4.4 mg/dL (0.5-1.5); PHOSPHORUS 4.3 mg/dL (2.5-4.9); TOTAL PROTEIN, SERUM 7.4 g/dL (6.0-8.3)
[2018-01-02] MEDS: INSULIN R PO SS1 SQ SCH (06:59)
[2018-01-02 08:03] VITALS: BP 131/96
[2018-01-02] MEDS ORDERED: PANTOPRAZOLE SODIUM 40 MG TABLET.DR PO SCH (09:00)
[2018-01-02] MEDS ORDERED: TRAM50TA4 PO (09:16)
[2018-01-02] MEDS ORDERED: DOXE75CA3 PO (09:16)
[2018-01-02] MEDS ORDERED: DOXE50CA4 PO (09:16)
[2018-01-02] MEDS ORDERED: DOXE25CA3 PO (09:16)
[2018-01-02] MEDS ORDERED: HYDROXYZINE HCL 25 MG TABLET PO PRN (10:15)
[2018-01-02 11:42] VITALS: BP 134/59
[2018-01-02] MEDS ORDERED: DOXEPIN HCL 25 MG CAP PO SCH ×3 (12:00→21:00)
[2018-01-02] MEDS ORDERED: ROPINIROLE HCL 1 MG TABLET PO SCH (14:00)
[2018-01-02] MEDS ORDERED: TRAMADOL HCL 50 MG TABLET PO SCH (14:00)
[2018-01-02] MEDS ORDERED: LIDOCAINE HCL MPF 1% 5ML VIAL IJ PRN (17:00)
[2018-01-02] MEDS ORDERED: CARVEDILOL 25 MG TABLET PO SCH (21:00)
[2018-01-02] MEDS ORDERED: AMLODIPINE BESYLATE 5 MG TAB PO SCH (21:00)
[2018-01-03] MEDS ORDERED: DOXEPIN HCL 25 MG CAP PO SCH (07:30)
[2018-01-03] MEDS ORDERED: ASPIRIN 81 MG EC TAB PO SCH (09:00)
[2018-01-03] MEDS ORDERED: LISINOPRIL 40 MG TABLET PO SCH (09:00)
[2018-01-03] MEDS ORDERED: FOLIC ACID/VITAMIN B COMP W-C 1 MG CAPSULE PO SCH (09:00)
[2018-01-03] MEDS ORDERED: PAROXETINE HCL 20 MG TABLET PO SCH (09:00)
[2018-01-04] MEDS ORDERED: LIDOCAINE 5% TOPICAL PATCH TP SCH (09:00)
== END 2018-01-02 17:40 | disposition home or self-care (01) | DRG 640 ==
LOC: EDH 17:02 → EDHIP 18:14 → 2AH 19:39
PROVIDERS: ADMIT Internal Medicine Nephrology; ATTEND Internal Medicine Nephrology
PROC: 5A1D70Z Performance of Urinary Filtration, Intermittent, Less than 6 Hours Per Day (ICD-10-PCS; 2018-01-01)
PROC: 5A1D70Z Performance of Urinary Filtration, Intermittent, Less than 6 Hours Per Day (ICD-10-PCS; principal; 2018-01-02)
DX: E87.5 Hyperkalemia (principal); N18.6 End stage renal disease; I12.0 Hypertensive chronic kidney disease with stage 5 chronic kidney disease or end stage renal disease; E11.21 Type 2 diabetes mellitus with diabetic nephropathy; E78.5 Hyperlipidemia, unspecified; Z87.891 Personal history of nicotine dependence; Z91.11 Patient's noncompliance with dietary regimen; Z91.15 Patient's noncompliance with renal dialysis; Z95.1 Presence of aortocoronary bypass graft; I25.10 Atherosclerotic heart disease of native coronary artery without angina pectoris; D64.9 Anemia, unspecified; E11.22 Type 2 diabetes mellitus with diabetic chronic kidney disease; F32.9 Major depressive disorder, single episode, unspecified; Z91.19 Patient's noncompliance with other medical treatment and regimen; Z99.2 Dependence on renal dialysis
CPT/HCPCS: 36415; 36600; 71045; 73600; 80048; 80053; 82435; 82803; 82947; 82948; 83605; 84100; 84132; 84295; 84550; 85018; 85025; 90935; 93005; 94640; 99291; J0610; J1815; J2405; J3490; J7030

== ENCOUNTER 2018-01-10 11:46 | Inpatient (IN) | payer OTHER ==
[~2018-01-10] VITALS: Ht 162.6 cm; Wt 65.8 kg
[~2018-01-10 11:46] MED LIST changes: +DOXE25CA3 PO; +DOXE75CA3 PO; -FLUT16H NASAL; -KRIL1CAP29 PO
[2018-01-10 12:43] LABS: BASOPHILS % (AUTO) 0.3 % (0.0-5.0); EOSINOPHILS % (AUTO) 3.5 % (0.0-8.0); HEMATOCRIT 28.1 % (36-48); LYMPHOCYTES % (AUTO) 6.7 % (21.0-51.0); MEAN CORPUSCULAR HEMOGLOBIN 30.3 pg (27.0-33.0); MEAN CORPUSCULAR HGB CONC 33.1 g/dL (32.0-36.0); MEAN CORPUSCULAR VOLUME 91.3 fL (79-99); MONOCYTES % (AUTO) 5.5 % (3.0-13.0); PLATELET COUNT (AUTO) 143 K/uL (130-400); RED BLOOD CELL COUNT(AUTO) 3.08 MIL/uL (4.00-5.50); WHITE BLOOD COUNT (AUTO) 7.8 K/uL (4.8-10.8)
[2018-01-10 12:51] LABS: CREATININE 5.4 mg/dL (0.5-1.5); POTASSIUM 5.9 mmol/L (3.5-5.1)
[2018-01-10 12:55] LABS: ALBUMIN 3.5 g/dL (3.5-5.0); BILIRUBIN,TOTAL 0.6 mg/dL (0.2-1.0); TOTAL PROTEIN, SERUM 7.7 g/dL (6.0-8.3)
[2018-01-10 13:07] LABS: INR 1.08 (0.85-1.15); PARTIAL THROMBOPLASTIN TIME 25.9 SEC (26.3-35.5); PROTHROMBIN TIME 11.3 SEC (9.6-11.6)
[2018-01-10] MEDS ORDERED: HYDROCODONE/ACETAMINOPHEN 5/325 MG TAB PO PRN (15:15)
[2018-01-10] MEDS ORDERED: HYDRALAZINE HCL 20 MG/ML VIAL IV PRN (15:15)
[2018-01-10] MEDS ORDERED: SODIUM POLYSTYRENE SULFONATE 15 GM/60 ML ML ONE (15:29)
[2018-01-10] MEDS ORDERED: HYDROXYZINE HCL 25 MG TABLET PO PRN (15:30)
[2018-01-10] MEDS ORDERED: DEXTROSE 50%-WATER 50 ML DISP.SYRIN IV ONE (15:30)
[2018-01-10] MEDS ORDERED: CALCIUM GLUCONATE 1 GM/10 ML VIAL IV ONE (15:30)
[2018-01-10] MEDS ORDERED: INSULIN HUMULIN R 100 UNIT/ML 3ML ONE (15:31)
[2018-01-10] MEDS ORDERED: SODIUM CHLORIDE 0.9% 100 ML IV ONE (15:32)
[2018-01-10 18:00] VITALS: BP 167/72
[2018-01-10] MEDS ORDERED: ACETAMINOPHEN 325 MG TAB PO PRN (18:30)
[2018-01-10] MEDS ORDERED: ACETAMINOPHEN 325 MG TAB ONE (18:37)
[2018-01-10] MEDS ORDERED: ALBUMIN (HUMAN) 25% 100 ML IV PRN (19:30)
[2018-01-10] MEDS ORDERED: 0.9% SODIUM CHLORIDE 250 ML IV BAG IV PRN (19:30)
[2018-01-10] MEDS ORDERED: SODIUM CHLORIDE 0.9% 1000ML 1,000 ML IV PRN (19:30)
[2018-01-10 20:00] VITALS: BP 187/91
[2018-01-10] MEDS: AMLODIPINE BESYLATE 5 MG TAB PO SCH (21:00)
[2018-01-10] MEDS: CARVEDILOL 25 MG TABLET PO SCH (21:00)
[2018-01-10] MEDS: ROPINIROLE HCL 1 MG TABLET PO SCH (21:00)
[2018-01-10] MEDS ORDERED: DOXEPIN HCL 25 MG CAP PO SCH (21:00)
[2018-01-10] MEDS: TRAMADOL HCL 50 MG TABLET PO SCH (21:50)
[2018-01-10] MEDS: HEPARIN SODIUM 5000UNIT/ML 1ML VIAL SQ SCH (21:54)
[2018-01-10] MEDS: INSULIN HUMULIN R 100 UNIT/ML 3ML SQ SCH (21:56)
[2018-01-11] VITALS: BP 170/74
[2018-01-11] MEDS ORDERED: ACETAMINOPHEN 325 MG TAB PO PRN (00:30)
[2018-01-11 04:00] VITALS: BP 168/82
[2018-01-11] MEDS: INSULIN HUMULIN R 100 UNIT/ML 3ML SQ SCH ×2 (05:53→11:30)
[2018-01-11 06:37] LABS: HEMATOCRIT 27.7 % (36-48); MEAN CORPUSCULAR HEMOGLOBIN 31.2 pg (27.0-33.0); MEAN CORPUSCULAR HGB CONC 34.1 g/dL (32.0-36.0); MEAN CORPUSCULAR VOLUME 91.5 fL (79-99); PLATELET COUNT (AUTO) 170 K/uL (130-400); RED BLOOD CELL COUNT(AUTO) 3.02 MIL/uL (4.00-5.50); RED CELL DISTRIBUTION WIDTH 16.8 % (11.0-15.5); WHITE BLOOD COUNT (AUTO) 5.6 K/uL (4.8-10.8)
[2018-01-11 06:59] LABS: CREATININE 5.5 mg/dL (0.5-1.5); POTASSIUM 4.3 mmol/L (3.5-5.1)
[2018-01-11] MEDS ORDERED: DOXEPIN HCL 25 MG CAP PO SCH ×2 (07:30→12:00)
[2018-01-11 08:05] VITALS: BP 168/77
[2018-01-11] MEDS ORDERED: ASPIRIN 81 MG EC TAB PO SCH (09:00)
[2018-01-11] MEDS ORDERED: PAROXETINE HCL 20 MG TABLET PO SCH (09:00)
[2018-01-11] MEDS ORDERED: LISINOPRIL 40 MG TABLET PO SCH (09:00)
[2018-01-11] MEDS ORDERED: PANTOPRAZOLE SODIUM 40 MG TABLET.DR PO SCH (09:00)
[2018-01-11] MEDS ORDERED: FAMOTIDINE 20MG TAB 20 MG TAB PO SCH (09:00)
[2018-01-11] MEDS: CARVEDILOL 25 MG TABLET PO SCH (10:07)
[2018-01-11] MEDS: ROPINIROLE HCL 1 MG TABLET PO SCH ×2 (10:08→14:57)
[2018-01-11] MEDS: AMLODIPINE BESYLATE 5 MG TAB PO SCH (10:09)
[2018-01-11] MEDS: TRAMADOL HCL 50 MG TABLET PO SCH ×2 (10:10→14:57)
[2018-01-11] MEDS: HEPARIN SODIUM 5000UNIT/ML 1ML VIAL SQ SCH (10:11)
[2018-01-11 12:02] VITALS: BP 144/78
[2018-01-11] MEDS ORDERED: LIDOCAINE HCL-MPF 1% 5ML AMP IJ PRN (13:45)
[2018-01-11 16:01] VITALS: BP 153/69
== END 2018-01-11 17:29 | disposition home or self-care (01) | DRG 640 ==
LOC: EDH 11:46 → EDHIP 15:11 → 3AH 17:35
PROVIDERS: ADMIT Hospitalist; ATTEND Hospitalist
PROC: 5A1D70Z Performance of Urinary Filtration, Intermittent, Less than 6 Hours Per Day (ICD-10-PCS; principal; 2018-01-10)
PROC: 5A1D70Z Performance of Urinary Filtration, Intermittent, Less than 6 Hours Per Day (ICD-10-PCS; 2018-01-10)
DX: E87.5 Hyperkalemia (principal); N18.6 End stage renal disease; I12.0 Hypertensive chronic kidney disease with stage 5 chronic kidney disease or end stage renal disease; J98.11 Atelectasis; E87.70 Fluid overload, unspecified; E11.65 Type 2 diabetes mellitus with hyperglycemia; I25.10 Atherosclerotic heart disease of native coronary artery without angina pectoris; E11.22 Type 2 diabetes mellitus with diabetic chronic kidney disease; R09.89 Other specified symptoms and signs involving the circulatory and respiratory systems; J44.9 Chronic obstructive pulmonary disease, unspecified; Z99.2 Dependence on renal dialysis; Z95.1 Presence of aortocoronary bypass graft; Z91.19 Patient's noncompliance with other medical treatment and regimen; Z83.3 Family history of diabetes mellitus; Z82.49 Family history of ischemic heart disease and other diseases of the circulatory system; Z80.9 Family history of malignant neoplasm, unspecified
CPT/HCPCS: 36415; 71045; 80048; 80053; 82948; 83880; 84484; 85025; 85027; 85610; 85730; 90935; 93005; J0360; J0610; J1644; J1815; J7070

== ENCOUNTER 2018-02-09 16:50 | Emergency (ER) | payer OTHER ==
[2018-02-09 17:46] LABS: BASOPHILS % (AUTO) 0.5 % (0.0-5.0); EOSINOPHILS % (AUTO) 4.3 % (0.0-8.0); LYMPHOCYTES % (AUTO) 13.1 % (21.0-51.0); MEAN CORPUSCULAR HEMOGLOBIN 31.5 pg (27.0-33.0); MEAN CORPUSCULAR VOLUME 92.5 fL (79-99); MONOCYTES % (AUTO) 6.9 % (3.0-13.0); NEUTROPHILS % (AUTO) 75.2 % (40.0-77.0); PLATELET COUNT (AUTO) 171 K/uL (130-400); RED BLOOD CELL COUNT(AUTO) 2.48 MIL/uL (4.00-5.50); RED CELL DISTRIBUTION WIDTH 17.1 % (11.0-15.5); WHITE BLOOD COUNT (AUTO) 5.7 K/uL (4.8-10.8)
[2018-02-09 17:56] LABS: CREATININE 4.8 mg/dL (0.5-1.5); POTASSIUM 4.3 mmol/L (3.5-5.1)
[2018-02-09 18:01] LABS: ALBUMIN 3.3 g/dL (3.5-5.0); BILIRUBIN,TOTAL 0.5 mg/dL (0.2-1.0); TOTAL PROTEIN, SERUM 7.4 g/dL (6.0-8.3)
== END 2018-02-09 18:36 | disposition home or self-care (01) ==
LOC: EDH 16:50
DX: S90.822A Blister (nonthermal), left foot, initial encounter (principal); E11.9 Type 2 diabetes mellitus without complications; I11.0 Hypertensive heart disease with heart failure; I50.9 Heart failure, unspecified; I25.10 Atherosclerotic heart disease of native coronary artery without angina pectoris; E78.5 Hyperlipidemia, unspecified; I25.2 Old myocardial infarction; Z85.840 Personal history of malignant neoplasm of eye; Z79.4 Long term (current) use of insulin; Z88.8 Allergy status to other drugs, medicaments and biological substances; X58.XXXA Exposure to other specified factors, initial encounter; Y93.89 Activity, other specified; Y92.89 Other specified places as the place of occurrence of the external cause; Y99.8 Other external cause status
CPT/HCPCS: 36415; 80053; 85025; 87040; 87077; 87186

== ENCOUNTER → 2018-02-23 | Outpatient (CLI) | payer OTHER ==
[~2018-02-23] MED LIST changes: -AMLO5TAB7 PO; +AMLO5TAB9 PO; +LIDOCAINE/PRILOCAINE CREAM 5GM TUBE TP ONE
[2018-02-23 12:35] LABS: BASOPHILS % (AUTO) 0.6 % (0.0-5.0); EOSINOPHILS % (AUTO) 5.1 % (0.0-8.0); HEMATOCRIT 29.1 % (36-48); LYMPHOCYTES % (AUTO) 13.5 % (21.0-51.0); MEAN CORPUSCULAR HEMOGLOBIN 31.2 pg (27.0-33.0); MEAN CORPUSCULAR VOLUME 91.8 fL (79-99); MONOCYTES % (AUTO) 8.8 % (3.0-13.0); PLATELET COUNT (AUTO) 210 K/uL (130-400); RED BLOOD CELL COUNT(AUTO) 3.17 MIL/uL (4.00-5.50); RED CELL DISTRIBUTION WIDTH 17.4 % (11.0-15.5); WHITE BLOOD COUNT (AUTO) 5.5 K/uL (4.8-10.8)
[2018-02-23 12:53] LABS: CREATININE 5.7 mg/dL (0.5-1.5); POTASSIUM 4.9 mmol/L (3.5-5.1)
[2018-02-23 12:58] LABS: ALBUMIN 3.6 g/dL (3.5-5.0); BILIRUBIN,TOTAL 0.6 mg/dL (0.2-1.0)
[2018-02-23 13:42] LABS: ERYTHROCYTE SEDIMENTATION RATE 66 MM/HR (0-30)
[2018-02-23 15:42] VITALS: BP 131/68
== END | disposition home or self-care (01) ==
LOC: WHH 10:45
PROVIDERS: ATTEND Surgery
DX: E11.621 Type 2 diabetes mellitus with foot ulcer (principal); L97.421 Non-pressure chronic ulcer of left heel and midfoot limited to breakdown of skin; E11.69 Type 2 diabetes mellitus with other specified complication; M86.8X7 Other osteomyelitis, ankle and foot; I25.10 Atherosclerotic heart disease of native coronary artery without angina pectoris; E78.5 Hyperlipidemia, unspecified; I25.2 Old myocardial infarction; J44.9 Chronic obstructive pulmonary disease, unspecified; F32.9 Major depressive disorder, single episode, unspecified; E11.22 Type 2 diabetes mellitus with diabetic chronic kidney disease; I13.2 Hypertensive heart and chronic kidney disease with heart failure and with stage 5 chronic kidney disease, or end stage renal disease; N18.6 End stage renal disease; I50.9 Heart failure, unspecified; Z88.8 Allergy status to other drugs, medicaments and biological substances; Z87.891 Personal history of nicotine dependence; Z85.840 Personal history of malignant neoplasm of eye; Z95.1 Presence of aortocoronary bypass graft; Z99.2 Dependence on renal dialysis; Z79.4 Long term (current) use of insulin
CPT/HCPCS: 36415; 80053; 80339; 85025; 85651; A4450; A6021; G0463; J3490; L3260

== ENCOUNTER → 2018-02-23 | Outpatient (CLI) | payer OTHER ==
[~2018-02-23] MED LIST changes: -LIDOCAINE/PRILOCAINE CREAM 5GM TUBE TP ONE
== END | disposition home or self-care (01) ==
LOC: RAH 13:04
PROVIDERS: ATTEND Surgery
DX: E11.621 Type 2 diabetes mellitus with foot ulcer (principal); L97.419 Non-pressure chronic ulcer of right heel and midfoot with unspecified severity; M86.8X7 Other osteomyelitis, ankle and foot
CPT/HCPCS: 73630

== ENCOUNTER → 2018-03-02 | Outpatient (CLI) | payer OTHER ==
[2018-03-02 15:18] VITALS: BP 130/65
== END | disposition home or self-care (01) ==
LOC: WHH 10:45
PROVIDERS: ATTEND Surgery
DX: E11.621 Type 2 diabetes mellitus with foot ulcer (principal); L97.422 Non-pressure chronic ulcer of left heel and midfoot with fat layer exposed; E11.69 Type 2 diabetes mellitus with other specified complication; M86.8X7 Other osteomyelitis, ankle and foot; E11.65 Type 2 diabetes mellitus with hyperglycemia; E11.51 Type 2 diabetes mellitus with diabetic peripheral angiopathy without gangrene; E11.22 Type 2 diabetes mellitus with diabetic chronic kidney disease; I13.2 Hypertensive heart and chronic kidney disease with heart failure and with stage 5 chronic kidney disease, or end stage renal disease; N18.6 End stage renal disease; I50.9 Heart failure, unspecified; E78.5 Hyperlipidemia, unspecified; I25.10 Atherosclerotic heart disease of native coronary artery without angina pectoris; I25.2 Old myocardial infarction; J44.9 Chronic obstructive pulmonary disease, unspecified; F32.9 Major depressive disorder, single episode, unspecified; Z79.4 Long term (current) use of insulin; Z88.8 Allergy status to other drugs, medicaments and biological substances; Z99.2 Dependence on renal dialysis; Z85.840 Personal history of malignant neoplasm of eye; Z95.1 Presence of aortocoronary bypass graft; Z87.891 Personal history of nicotine dependence
CPT/HCPCS: 36415; 86140; A6021; G0463

== ENCOUNTER → 2018-03-03 | Outpatient (CLI) | payer OTHER | END | disposition home or self-care (01) | LOC: RAH 09:56 | PROVIDERS: ATTEND Nurse Practitioner Adult Health | DX: Z12.31 Encounter for screening mammogram for malignant neoplasm of breast (principal) | CPT/HCPCS: 77067 ==

== ENCOUNTER 2018-03-07 14:04 | Emergency (ER) | payer OTHER | END 2018-03-07 16:12 | disposition home or self-care (01) | LOC: EDH 14:04 | DX: S00.83XA Contusion of other part of head, initial encounter (principal); I13.2 Hypertensive heart and chronic kidney disease with heart failure and with stage 5 chronic kidney disease, or end stage renal disease; E11.22 Type 2 diabetes mellitus with diabetic chronic kidney disease; N18.6 End stage renal disease; I25.10 Atherosclerotic heart disease of native coronary artery without angina pectoris; E78.5 Hyperlipidemia, unspecified; I25.2 Old myocardial infarction; Z99.2 Dependence on renal dialysis; Z85.840 Personal history of malignant neoplasm of eye; Z87.891 Personal history of nicotine dependence; Z98.890 Other specified postprocedural states; Z91.048 Other nonmedicinal substance allergy status; W18.09XA Striking against other object with subsequent fall, initial encounter; Y93.89 Activity, other specified; Y92.098 Other place in other non-institutional residence as the place of occurrence of the external cause; Y99.8 Other external cause status | CPT/HCPCS: 70450 ==

== ENCOUNTER → 2018-03-16 | Outpatient (CLI) | payer OTHER | END | disposition home or self-care (01) | LOC: RAH 11:53 | PROVIDERS: ATTEND Nurse Practitioner Adult Health | DX: R92.1 Mammographic calcification found on diagnostic imaging of breast (principal) | CPT/HCPCS: 77065 ==

== ENCOUNTER → 2018-03-16 | Outpatient (CLI) | payer OTHER ==
[2018-03-16 11:51] VITALS: BP 121/63
== END ==
LOC: WHH 10:45
PROVIDERS: ATTEND Surgery
DX: E11.621 Type 2 diabetes mellitus with foot ulcer (principal); L97.422 Non-pressure chronic ulcer of left heel and midfoot with fat layer exposed; E11.51 Type 2 diabetes mellitus with diabetic peripheral angiopathy without gangrene; E11.22 Type 2 diabetes mellitus with diabetic chronic kidney disease; I13.11 Hypertensive heart and chronic kidney disease without heart failure, with stage 5 chronic kidney disease, or end stage renal disease; N18.6 End stage renal disease; D63.1 Anemia in chronic kidney disease; I50.9 Heart failure, unspecified; E11.69 Type 2 diabetes mellitus with other specified complication; M86.8X7 Other osteomyelitis, ankle and foot; I25.10 Atherosclerotic heart disease of native coronary artery without angina pectoris; I25.2 Old myocardial infarction; J44.9 Chronic obstructive pulmonary disease, unspecified; E78.5 Hyperlipidemia, unspecified; F32.9 Major depressive disorder, single episode, unspecified; Z99.2 Dependence on renal dialysis; Z87.891 Personal history of nicotine dependence; Z95.1 Presence of aortocoronary bypass graft
CPT/HCPCS: G0463

== ENCOUNTER 2018-04-20 10:45 | Outpatient (CLI) | payer OTHER ==
[~2018-04-20 10:45] MED LIST changes: +EPHEDRINE SULFATE 50 MG/ML AMPULE ONE; +ESMOLOL HCL 10 MG/ML 10 ML VIAL ONE; +LIDOCAINE PF 2% 5ML ABBOJECT ONE; +ONDANSETRON HCL 4 MG/2 ML VIAL ONE; +PROPOFOL 10 MG/ML 20ML VIAL IV ONE; +ROCURONIUM 10MG/1ML SYR 10 MG/ML ML ONE
[2018-04-20 13:58] VITALS: BP 156/81
== END 2018-04-20 15:17 | disposition home or self-care (01) ==
LOC: WHH 10:45
PROVIDERS: ATTEND Surgery
DX: E11.621 Type 2 diabetes mellitus with foot ulcer (principal); L97.428 Non-pressure chronic ulcer of left heel and midfoot with other specified severity; E11.51 Type 2 diabetes mellitus with diabetic peripheral angiopathy without gangrene; E11.22 Type 2 diabetes mellitus with diabetic chronic kidney disease; I13.2 Hypertensive heart and chronic kidney disease with heart failure and with stage 5 chronic kidney disease, or end stage renal disease; N18.6 End stage renal disease; I50.9 Heart failure, unspecified; D63.1 Anemia in chronic kidney disease; M86.8X7 Other osteomyelitis, ankle and foot; I25.10 Atherosclerotic heart disease of native coronary artery without angina pectoris; I25.2 Old myocardial infarction; J44.9 Chronic obstructive pulmonary disease, unspecified; E78.5 Hyperlipidemia, unspecified; F32.9 Major depressive disorder, single episode, unspecified; Z79.4 Long term (current) use of insulin; Z99.2 Dependence on renal dialysis; Z87.891 Personal history of nicotine dependence; Z95.1 Presence of aortocoronary bypass graft; Z85.840 Personal history of malignant neoplasm of eye
CPT/HCPCS: G0463; J2001; J2405; J2704; J3490

== ENCOUNTER → 2018-07-13 | Outpatient (CLI) | payer OTHER ==
[~2018-07-13] MED LIST changes: -EPHEDRINE SULFATE 50 MG/ML AMPULE ONE; -ESMOLOL HCL 10 MG/ML 10 ML VIAL ONE; -LIDOCAINE PF 2% 5ML ABBOJECT ONE; -ONDANSETRON HCL 4 MG/2 ML VIAL ONE; -PROPOFOL 10 MG/ML 20ML VIAL IV ONE; -ROCURONIUM 10MG/1ML SYR 10 MG/ML ML ONE
== END | disposition home or self-care (01) ==
LOC: SHCH 14:34
PROVIDERS: ATTEND Internal Medicine Cardiovascular Disease
DX: I87.2 Venous insufficiency (chronic) (peripheral) (principal)
CPT/HCPCS: 93970

== ENCOUNTER → 2018-07-25 | Outpatient (CLI) | payer OTHER | END | disposition home or self-care (01) | LOC: SHCH 10:00 | PROVIDERS: ATTEND Internal Medicine Cardiovascular Disease | DX: I34.0 Nonrheumatic mitral (valve) insufficiency (principal); I25.10 Atherosclerotic heart disease of native coronary artery without angina pectoris | CPT/HCPCS: 93306 ==

== ENCOUNTER 2018-07-26 07:07 | Emergency (ER) | payer OTHER ==
[2018-07-26 08:03] LABS: POTASSIUM 4.1 mmol/L (3.5-5.1)
[2018-07-26 08:30] LABS: BASOPHILS % (AUTO) 0.6 % (0.0-5.0); EOSINOPHILS % (AUTO) 4.5 % (0.0-8.0); HEMATOCRIT 30.4 % (36-48); LYMPHOCYTES % (AUTO) 7.5 % (21.0-51.0); MEAN CORPUSCULAR HEMOGLOBIN 28.2 pg (27.0-33.0); MEAN CORPUSCULAR HGB CONC 32.7 g/dL (32.0-36.0); MEAN CORPUSCULAR VOLUME 86.3 fL (79-99); MONOCYTES % (AUTO) 9.7 % (3.0-13.0); NEUTROPHILS % (AUTO) 77.7 % (40.0-77.0); PLATELET COUNT (AUTO) 197 K/uL (130-400); RED BLOOD CELL COUNT(AUTO) 3.53 MIL/uL (4.00-5.50); RED CELL DISTRIBUTION WIDTH 18.5 % (11.0-15.5)
== END 2018-07-26 09:14 | disposition home or self-care (01) ==
LOC: EDH 07:07
DX: S30.0XXA Contusion of lower back and pelvis, initial encounter (principal); I11.0 Hypertensive heart disease with heart failure; I50.9 Heart failure, unspecified; I25.10 Atherosclerotic heart disease of native coronary artery without angina pectoris; E11.9 Type 2 diabetes mellitus without complications; E78.5 Hyperlipidemia, unspecified; Z79.4 Long term (current) use of insulin; Z88.8 Allergy status to other drugs, medicaments and biological substances; W01.0XXA Fall on same level from slipping, tripping and stumbling without subsequent striking against object, initial encounter; Y93.89 Activity, other specified; Y92.89 Other specified places as the place of occurrence of the external cause; Y99.8 Other external cause status
CPT/HCPCS: 36415; 72170; 80048; 85025; 93005

== ENCOUNTER 2018-08-18 14:57 | Inpatient (IN) | payer OTHER ==
[~2018-08-18] VITALS: Ht 162.6 cm; Wt 63.3 kg
[2018-08-18 16:01] LABS: BASOPHILS % (AUTO) 0.6 % (0.0-5.0); EOSINOPHILS % (AUTO) 0.3 % (0.0-8.0); HEMATOCRIT 29.8 % (36-48); LYMPHOCYTES % (AUTO) 2.9 % (21.0-51.0); MEAN CORPUSCULAR HEMOGLOBIN 28.4 pg (27.0-33.0); MEAN CORPUSCULAR HGB CONC 33.4 g/dL (32.0-36.0); MEAN CORPUSCULAR VOLUME 85.2 fL (79-99); MONOCYTES % (AUTO) 6.7 % (3.0-13.0); NEUTROPHILS % (AUTO) 89.5 % (40.0-77.0); PLATELET COUNT (AUTO) 138 K/uL (130-400); RED BLOOD CELL COUNT(AUTO) 3.49 MIL/uL (4.00-5.50); RED CELL DISTRIBUTION WIDTH 19.8 % (11.0-15.5)
[2018-08-18] MEDS ORDERED: SODIUM CHLORIDE 0.9% 500ML 500 ML IV ONE (16:08)
[2018-08-18] MEDS ORDERED: ONDANSETRON HCL 4 MG/2 ML VIAL ONE (16:08)
[2018-08-18] MEDS ORDERED: ZOSYN 3.375GM+NS 50ML 50 ML IV ONE (16:08)
[2018-08-18 16:21] LABS: ALBUMIN 2.9 g/dL (3.5-5.0); BILIRUBIN,TOTAL 0.6 mg/dL (0.2-1.0); CREATININE 6.2 mg/dL (0.5-1.5); POTASSIUM 4.8 mmol/L (3.5-5.1); TOTAL PROTEIN, SERUM 7.4 g/dL (6.0-8.3)
[2018-08-18 16:30] LABS: INR 1.18 (0.85-1.15); PARTIAL THROMBOPLASTIN TIME 35.4 SEC (26.3-35.5); PROTHROMBIN TIME 12.4 SEC (9.6-11.6)
[2018-08-18 16:44] LABS: CRP QUANTITATIVE 231.9 mg/L (0.00-9.0)
[2018-08-18] MEDS ORDERED: VANCOMYCIN 1GM+NS 250ML 250 ML IV ONE (16:50)
[2018-08-18] MEDS ORDERED: MORPHINE SULFATE 4 MG/1ML SYG ONE (17:19)
[2018-08-18 18:10] LABS: ERYTHROCYTE SEDIMENTATION RATE 98 MM/HR (0-30)
[2018-08-18] MEDS ORDERED: VANCOMYCIN 1GM+NS 250ML 250 ML IV SCH (19:30)
[2018-08-18] MEDS ORDERED: ACETAMINOPHEN 325 MG TAB PO PRN ×2 (19:30)
[2018-08-18] MEDS ORDERED: ONDANSETRON HCL 4 MG/2 ML VIAL IV PRN (19:30)
[2018-08-18] MEDS ORDERED: VANCOMYCIN PROTOCOL PER PHARMACY IV PRN (19:30)
[2018-08-18] MEDS ORDERED: HYDRALAZINE HCL 20 MG/ML VIAL IV PRN (19:30)
[2018-08-18] MEDS ORDERED: MORPHINE SULFATE 4 MG/1ML SYG IV PRN (19:45)
[2018-08-18] MEDS ORDERED: MORPHINE SULFATE 2 MG/ML 1ML SYG ONE (20:05)
[2018-08-18 21:00] VITALS: BP 146/73
[2018-08-18] MEDS: ZOSYN 3.375GM+NS 50ML 50 ML IV SCH (21:36)
[2018-08-18] MEDS: INSULIN HUMULIN R 100 UNIT/ML 3ML SQ SCH (21:47)
[2018-08-18] MEDS: INSULIN GLARGINE 100 UNITS/ML 10 ML VIAL SQ SCH (21:47)
[2018-08-19] MEDS: MORPHINE SULFATE 2 MG/ML 1ML SYG IVP PRN ×2 (01:05→07:00)
[2018-08-19 04:00] VITALS: BP 122/58
[2018-08-19 05:07] LABS: BASOPHILS % (AUTO) 0.2 % (0.0-5.0); EOSINOPHILS % (AUTO) 2.5 % (0.0-8.0); HEMATOCRIT 29.1 % (36-48); LYMPHOCYTES % (AUTO) 4.7 % (21.0-51.0); MEAN CORPUSCULAR HGB CONC 32.5 g/dL (32.0-36.0); MEAN CORPUSCULAR VOLUME 86.1 fL (79-99); MONOCYTES % (AUTO) 7.5 % (3.0-13.0); NEUTROPHILS % (AUTO) 85.1 % (40.0-77.0); PLATELET COUNT (AUTO) 140 K/uL (130-400); RED BLOOD CELL COUNT(AUTO) 3.38 MIL/uL (4.00-5.50); RED CELL DISTRIBUTION WIDTH 19.7 % (11.0-15.5); WHITE BLOOD COUNT (AUTO) 10.8 K/uL (4.8-10.8)
[2018-08-19 05:28] LABS: HEMOGLOBIN A1C 9.5 % (4.0-6.0)
[2018-08-19] MEDS: INSULIN HUMULIN R 100 UNIT/ML 3ML SQ SCH ×4 (05:39→21:00)
[2018-08-19 06:20] LABS: ERYTHROCYTE SEDIMENTATION RATE 90 MM/HR (0-30)
[2018-08-19] MEDS ORDERED: MORPHINE SULFATE 2 MG/ML 1ML SYG IVP SCH (07:30)
[2018-08-19] MEDS: FAMOTIDINE/PF 20 MG/2 ML VIAL IV SCH (07:38)
[2018-08-19] MEDS: ENOXAPARIN SODIUM 30 MG/0.3 ML SQ SCH (07:38)
[2018-08-19] MEDS: ZOSYN 3.375GM+NS 50ML 50 ML IV SCH ×2 (07:38→19:42)
[2018-08-19 08:00] VITALS: BP 141/67
--- NOTE | 2018-08-19 09:25 | NUR ---
ORTHOPEDIC CONSULT DR. BATISTA CALLED BACK. AWARE OF CONSULT. HE WILL COME TO SEE THE PATIENT. LATER TODAY.
--- NOTE | 2018-08-19 09:26 | NUR ---
NEPHROLOGY CONSULT DR. FLORENTINO AWARE OF CONSULT.NEW ORDERS RECEIVED AND CARRIED OUT. PATIENT WILL HAVE DIALYSIS TODAY BECAUSE SHE MISSED HER DIALYSIS YESTERDAY. DR. FLORENTINO WILL VISIT PATIENT LATER TODAY.
--- NOTE | 2018-08-19 09:45 | NUR ---
DR. TANG VISITED WITH PATIENT. HE REVIEWED THE ANKLE X-RAY. AFTER BRIEFLY ASSESSING PT'S LEFT ANKLE, HE INFORMED THE PATIENT THAT SHE DID NOT HAD AN ABSCESS SO IN FACT, SHE DIDN'T NEED ANY SURGICAL INTERVENTION. DR. BATISTA RECOMMENDATIONS WERE: APPLYING HEAT PACKS, PAIN CONTROL AND TREAT THE INFECTION WITH ANTIBIOTICS.
[2018-08-19] MEDS: HYDROCODONE/ACETAMINOPHEN 5/325 MG TAB PO PRN (10:20)
[2018-08-19] MEDS: MORPHINE SULFATE 4 MG/1ML SYG IV PRN ×2 (11:39→16:44)
[2018-08-19 12:00] VITALS: BP 137/73
--- NOTE | 2018-08-19 13:00 | NUR ---
DR. MAYA VISITED WITH PATIENT. ACCORDING TO HIM, SHE HAD AN ABSCESS ON THE INTERIOR LATERAL SIDE OF HER ANKLE. DR. MAYA CLEANED THE SITE WITH AN ANTISEPTIC, AND WITH 18G NEEDLE AND 10CC SYRINGE ASPIRATED AROUND 2 CC OF SEROSANGUINEOUS FLUID/PUS. COVERED PUNCTURED SITE WITH 4X4. PUNTURE STILL DRAINED A LITTLE BIT.
--- NOTE | 2018-08-19 13:00 | NUR ---
DR. MAYA ORDER TO RE-CONSULT DR. BATISTA BECAUSE OF THE ABSCESS. ADMITTING MD AWARE. DR. BATISTA PAGED. WAITING FOR CALL BACK.
[2018-08-19 16:00] VITALS: BP 143/64
--- NOTE | 2018-08-19 16:25 | NUR ---
Initial: Met with pt this afternoon to discuss dcp. Pt states that she lives alone. Prior to admission was using a cane or rollator for ambulation. She is independent w ADLs. Pt states that her friend provides transportation to HD MWF @ [facility]. Pt states that she has a home a sh chair, borrowed transport chair and nebulizer. Pt mentions that if needed she is willing to consider short term SNF or [facility]. States that she has been to [facility] in the past. CM to continue to follow along and wait for Md recommendations. Addendum: 08/20/18 at 1627 by PAOLO BENITO Amended: Links added.
--- NOTE | 2018-08-19 16:48 | NUR ---
DR. BATISTA CALLED BACK. INFORMED HIM OF THE ANKLE ASPIRATION DONE BY DR. MAYA, ABOUT AEROBIC AND ANAEROBIC CULTURES SEND TO LAB, AND THE REQUEST TO RE-EVALUATE ABSCESS. DR. TANG STATED THAT HE SIGNED OFF EARLIER TODAY, IN HIS OPINION NO SURGICAL INTERVENTION WAS NEEDED, AND THAT IF DR. MAYA WANTED A SURGICAL PROCEDURE TO BE DONE, HE WAS FREE TO CONSULT OTHER ORTHOPEDIC SURGEONS. CHARGE NURSE AND ADMITTING MD AWARE. DR. GRANADOS WILL BE CONSULTED PER ANUM MASON'S ORDERS, SINCE THE PATIENT HAD A ORIF DONE BY DR. GRANADOS IN 2015.
--- NOTE | 2018-08-19 17:00 | NUR ---
I called Dr Long even though he is not the orthopedics surgeon cotton stomper to inform him of consult. Made him aware that Dr Ledesma had been called but he refused to do any interventions on patient and that he had signed off.
--- NOTE | 2018-08-19 17:22 | NUR ---
DR. GRANADOS HERE TO VISIT WITH PATIENT. NEW ORDERS RECEIVED. PATIENT WILL GO TO AN I&D TONIGHT. ORDER FAXED TO [facility].
--- NOTE | 2018-08-19 17:30 | NUR ---
Dr Long is here to see patient.
[2018-08-19 19:30] VITALS: BP 146/73
[2018-08-19] MEDS: INSULIN GLARGINE 100 UNITS/ML 10 ML VIAL SQ SCH (21:00)
[2018-08-19] MEDS ORDERED: SUCCINYLCHOLINE 200MG/10ML SYR ONE (22:18)
[2018-08-19] MEDS ORDERED: DEXAMETHASONE SOD PHOSPHATE 10MG/ML 1ML VIAL ONE ×2 (22:18→22:24)
[2018-08-19] MEDS ORDERED: MIDAZOLAM HCL 1 MG/ML 2ML VIAL ONE (22:18)
[2018-08-19] MEDS ORDERED: LIDOCAINE PF 2% 5ML ABBOJECT ONE (22:18)
[2018-08-19] MEDS ORDERED: ONDANSETRON HCL 4 MG/2 ML VIAL ONE (22:19)
[2018-08-19] MEDS ORDERED: PROPOFOL 10 MG/ML 20ML VIAL IV ONE (22:19)
[2018-08-19] MEDS ORDERED: GLYCOPYRROLATE 1 MG/5 ML SYRINGE ONE (22:19)
[2018-08-19] MEDS ORDERED: NEOSTIGMINE 5MG/5ML SYR IV ONE (22:19)
[2018-08-19] MEDS ORDERED: ROCURONIUM 10MG/1ML SYR 10 MG/ML ML ONE (22:20)
[2018-08-19] MEDS ORDERED: FENTANYL CITRATE PF 50 MCG/1 ML 2ML VIAL ONE (22:21)
[2018-08-19] MEDS ORDERED: ROPIVACAINE 0.5% 5MG/ML 30ML IJ ONE (23:30)
[2018-08-19 23:37] VITALS: BP 158/78
[2018-08-19] MEDS ORDERED: KETAMINE 50MG/ML SYRINGE 50 MG/ML DISP.SYRIN IV ONE (23:58)
[2018-08-20] VITALS (23 sets, daily range): BP systolic 113–152; BP diastolic 55–74
[2018-08-20] MEDS ORDERED: EPHEDRINE SULFATE 50 MG/ML AMPULE ONE (00:01)
[2018-08-20] MEDS ORDERED: VANCOMYCIN HCL 1 GM VIAL ONE (00:31)
[2018-08-20] MEDS ORDERED: PHENYLEPHRINE HCL 10 MG/ML 1ML VIAL IV ONE (00:58)
[2018-08-20] MEDS ORDERED: SODIUM CHLORIDE 0.9% 1000ML 1,000 ML IV SCH (01:27)
[2018-08-20] MEDS ORDERED: FERROUS FUMARATE 324 MG TABLET PO PRN (01:30)
[2018-08-20] MEDS ORDERED: DiphenhydrAMINE HCL 50 MG/ML VIAL IVP PRN (01:30)
[2018-08-20] MEDS ORDERED: MEPERIDINE-PF 25 MG/ML SYG ONE ×2 (02:00→02:14)
[2018-08-20] MEDS: MORPHINE SULFATE 4 MG/1ML SYG IV PRN ×3 (03:23→20:47)
[2018-08-20 06:13] LABS: HEMATOCRIT 28.8 % (36-48); MEAN CORPUSCULAR HEMOGLOBIN 28.3 pg (27.0-33.0); MEAN CORPUSCULAR HGB CONC 32.5 g/dL (32.0-36.0); MEAN CORPUSCULAR VOLUME 87.2 fL (79-99); PLATELET COUNT (AUTO) 169 K/uL (130-400); RED CELL DISTRIBUTION WIDTH 20.1 % (11.0-15.5); WHITE BLOOD COUNT (AUTO) 12.2 K/uL (4.8-10.8)
[2018-08-20] MEDS: INSULIN HUMULIN R 100 UNIT/ML 3ML SQ SCH ×4 (06:19→20:23)
[2018-08-20 06:24] LABS: ALBUMIN 2.3 g/dL (3.5-5.0); BILIRUBIN,TOTAL 0.9 mg/dL (0.2-1.0); CREATININE 5.2 mg/dL (0.5-1.5); PHOSPHORUS 7.3 mg/dL (2.5-4.9); POTASSIUM 5.2 mmol/L (3.5-5.1); TOTAL PROTEIN, SERUM 6.7 g/dL (6.0-8.3)
[2018-08-20 07:11] LABS: BAND NEUTROPHILS % (MANUAL) 2 % (0-2); BASOPHILS % (MANUAL) 1 % (0-2); LYMPHOCYTES % (MANUAL) 3 % (22-44); MAN.DIFF COMMENT-IMPRESSION MANUAL DIFFERENTIAL; MONOCYTES % (MANUAL) 1 % (2-9); SEGMENTED NEUTROPHILS % 93 % (40-70)
[2018-08-20 07:14] LABS: PLATELET MORPHOLOGY COMMENT ADEQUATE
--- NOTE | 2018-08-20 07:40 | NUR ---
RECEIVED IN BED HIGH CROWLEY'S POSITION RESTING WITH EYES CLOSED CURRENTLY ON VITAL SIGNS MONITORING POST PROCEDURE. NO DISTRESS ON 2LPMN OF OXYGEN. LEFT FOOT BANDAGE APPEARS CLEAN AND DRY AND IS ELEVATED ON A PILLOW. WILL CONTINUE TO MONITOR.
[2018-08-20] MEDS ORDERED: SODIUM POLYSTYRENE SULFONATE 15 GM/60 ML ML RC SCH (09:15)
[2018-08-20] MEDS: FAMOTIDINE/PF 20 MG/2 ML VIAL IV SCH (09:32)
[2018-08-20] MEDS: ZOSYN 3.375GM+NS 50ML 50 ML IV SCH ×2 (09:32→20:46)
[2018-08-20] MEDS: FOLIC ACID/VITAMIN B COMP W-C 1 MG CAP/TAB PO SCH (09:32)
[2018-08-20] MEDS: POLYETHYLENE GLYCOL 3350 17 GM POWD.PACK PO SCH (09:33)
[2018-08-20] MEDS: ENOXAPARIN SODIUM 30 MG/0.3 ML SQ SCH (09:36)
[2018-08-20] MEDS ORDERED: LISI40TA4 PO (14:17)
[2018-08-20] MEDS ORDERED: DOXE50CA4 PO (14:17)
[2018-08-20] MEDS ORDERED: SEVE800T7 PO (14:17)
--- NOTE | 2018-08-20 14:30 | NUR ---
LEFT LOWER EXTREMITY SITE IS DRAINING BLOODY DRAINAGE AND THE DRESSING WAS REINFORCED AND THE EXTREMITY ELEVATED ON A PILLOW.
[2018-08-20] MEDS ORDERED: HYDROXYZINE HCL 25 MG TABLET PO PRN (14:45)
--- NOTE | 2018-08-20 14:45 | NUR ---
HOME MEDICATIONS WERE REVIEWED WITH THE PATIENT AND REPORTED TO THE HOSPITALIST FOR RECONCILIATION.
--- NOTE | 2018-08-20 16:30 | NUR ---
DR GRANADOS CAME IN TO ASSESS THE SURGICAL SITE AND OBSERVED THE DRAINAGE TO THE SITE AND REQUESTED THAT I REMOVE THE TOP DRESSING AND REE WRAP LEAVING THE GAUZE THAT IS DIRECTLY ON THE SITE AND TO REINFORCE IT FROM THERE AND REWRAP IT WITH A CLEAN REE BANDAGE.
[2018-08-20] MEDS ORDERED: SEVELAMER CARBONATE 1600 MG PO SCH (17:00)
[2018-08-20] MEDS: SEVELAMER HCL 800 MG TABLET PO SCH (17:08)
[2018-08-20] MEDS: INSULIN LISPRO 100 UNIT/ML 3ML SQ SCH (17:23)
--- NOTE | 2018-08-20 18:45 | NUR ---
DRESSING CHANGE/REINFORCEMENT PERFORMED WITH THE PATIENT COOPERATION. REE WRAP APPLIED FOLLOWED BY KERLIX AND SECURED WITH TAPE. PATIENT TOLERATED PROCEDURE WELL AND EXPRESSED APPRECIATION FOR IT. EXTREMITY WAS ELEVATED AND THE PATIENT WAS ENCOURAGED TO KEEP IT ELEVATED TO HELP THE BLEEDING.
[2018-08-20] MEDS: DOXEPIN HCL 25 MG CAP PO SCH (20:45)
[2018-08-20] MEDS: LISINOPRIL 40 MG TABLET PO SCH (20:46)
[2018-08-20] MEDS: ROPINIROLE HCL 1 MG TABLET PO SCH (20:46)
[2018-08-20] MEDS: AMLODIPINE BESYLATE 5 MG TAB PO SCH (20:46)
[2018-08-20] MEDS: CARVEDILOL 25 MG TABLET PO SCH (20:46)
[2018-08-20] MEDS: INSULIN GLARGINE 100 UNITS/ML 10 ML VIAL SQ SCH (20:52)
[2018-08-20] MEDS: HYDROCODONE/ACETAMINOPHEN 5/325 MG TAB PO PRN (23:58)
[2018-08-21] VITALS (26 sets, daily range): BP systolic 101–156; BP diastolic 44–75
[2018-08-21] MEDS: MORPHINE SULFATE 4 MG/1ML SYG IV PRN (01:15)
[2018-08-21] MEDS: INSULIN HUMULIN R 100 UNIT/ML 3ML SQ SCH ×6 (05:29→20:35)
[2018-08-21 06:38] LABS: MEAN CORPUSCULAR HEMOGLOBIN 27.5 pg (27.0-33.0); MEAN CORPUSCULAR HGB CONC 32.1 g/dL (32.0-36.0); MEAN CORPUSCULAR VOLUME 85.9 fL (79-99); PLATELET COUNT (AUTO) 241 K/uL (130-400); RED BLOOD CELL COUNT(AUTO) 3.38 MIL/uL (4.00-5.50); RED CELL DISTRIBUTION WIDTH 19.4 % (11.0-15.5); WHITE BLOOD COUNT (AUTO) 10.6 K/uL (4.8-10.8)
[2018-08-21 06:47] LABS: CREATININE 6.1 mg/dL (0.5-1.5); PHOSPHORUS 7.7 mg/dL (2.5-4.9); POTASSIUM 4.8 mmol/L (3.5-5.1)
[2018-08-21 07:17] LABS: LYMPHOCYTES % (MANUAL) 6 % (22-44); MAN.DIFF COMMENT-IMPRESSION MANUAL DIFFERENTIAL; MONOCYTES % (MANUAL) 1 % (2-9); PLATELET MORPHOLOGY COMMENT ADEQUATE; SEGMENTED NEUTROPHILS % 93 % (40-70)
[2018-08-21] MEDS: INSULIN LISPRO 100 UNIT/ML 3ML SQ SCH ×3 (07:30→17:00)
[2018-08-21] MEDS: SEVELAMER HCL 800 MG TABLET PO SCH ×3 (08:00→17:00)
[2018-08-21] MEDS: LIDOCAINE HCL 5% OINT 36GM TUBE TP SCH (09:00)
[2018-08-21] MEDS: FOLIC ACID/VITAMIN B COMP W-C 1 MG CAP/TAB PO SCH ×2 (09:00)
[2018-08-21] MEDS: DOXEPIN HCL 25 MG CAP PO SCH ×3 (09:00→21:58)
[2018-08-21] MEDS: ENOXAPARIN SODIUM 30 MG/0.3 ML SQ SCH (09:00)
[2018-08-21] MEDS: POLYETHYLENE GLYCOL 3350 17 GM POWD.PACK PO SCH (09:00)
[2018-08-21] MEDS: AMLODIPINE BESYLATE 5 MG TAB PO SCH ×2 (09:25→21:59)
[2018-08-21] MEDS: ROPINIROLE HCL 1 MG TABLET PO SCH ×3 (09:25→21:58)
[2018-08-21] MEDS: ASPIRIN 81 MG EC TAB PO SCH (09:25)
[2018-08-21] MEDS: PAROXETINE HCL 20 MG TABLET PO SCH (09:25)
[2018-08-21] MEDS: FAMOTIDINE/PF 20 MG/2 ML VIAL IV SCH (09:25)
[2018-08-21] MEDS: ZOSYN 3.375GM+NS 50ML 50 ML IV SCH ×2 (09:26→21:57)
[2018-08-21] MEDS: CARVEDILOL 25 MG TABLET PO SCH ×2 (09:26→21:59)
[2018-08-21] MEDS ORDERED: LACTATED RINGERS 1000ML 0 ML IV ONE (11:36)
[2018-08-21] MEDS ORDERED: SODIUM CHLORIDE 0.9% 1000ML 1,000 ML IV ONE (12:07)
[2018-08-21] MEDS ORDERED: VANCOMYCIN HCL 1 GM VIAL ONE (12:26)
[2018-08-21] MEDS ORDERED: CEFAZOLIN SODIUM 1 GM VIAL IVP ONE (13:41)
[2018-08-21] MEDS ORDERED: SODIUM CHLORIDE 0.9% 1000ML 1,000 ML IV SCH (14:30)
[2018-08-21] MEDS ORDERED: DiphenhydrAMINE HCL 50 MG/ML VIAL IVP PRN (14:30)
[2018-08-21] MEDS ORDERED: DIPHENHYDRAMINE HCL 25 MG CAPSULE PO PRN (14:30)
--- NOTE | 2018-08-21 14:58 | NUR ---
PROCEDURE REPORT RECEIVED FROM SWETHA RN (PACU). PATIENT S/P 2ND LOOK I&D TO LEFT FOOT WITH WOUND VAC PLACEMENT BY DR. GRANADOS. WOUND CARE CONSULTED, PHYSICAL THERAPY FOR GAIT TRAINING WITH WALKER. PATIENT STABLE AT THIS TIME.
[2018-08-21] MEDS: INSULIN GLARGINE 100 UNITS/ML 10 ML VIAL SQ SCH (20:49)
[2018-08-21] MEDS ORDERED: VANCOMYCIN 1GM+NS 250ML 0 ML IV ONE (20:53)
[2018-08-21] MEDS: LISINOPRIL 40 MG TABLET PO SCH (21:58)
[2018-08-22] VITALS (7 sets, daily range): BP systolic 126–163; BP diastolic 65–80
[2018-08-22] MEDS: MORPHINE SULFATE 4 MG/1ML SYG IV PRN ×3 (00:18→21:01)
[2018-08-22 05:12] LABS: HEPATITIS A ANTIBODY IGM Negative (Negative); HEPATITIS B CORE IGM Negative (Negative); HEPATITIS Bs ANTIGEN SCREEN P Negative (Negative)
[2018-08-22 05:46] LABS: MEAN CORPUSCULAR HEMOGLOBIN 28.4 pg (27.0-33.0); MEAN CORPUSCULAR HGB CONC 32.6 g/dL (32.0-36.0); MEAN CORPUSCULAR VOLUME 87.3 fL (79-99); PLATELET COUNT (AUTO) 193 K/uL (130-400); RED BLOOD CELL COUNT(AUTO) 2.98 MIL/uL (4.00-5.50); RED CELL DISTRIBUTION WIDTH 19.5 % (11.0-15.5); WHITE BLOOD COUNT (AUTO) 7.4 K/uL (4.8-10.8)
[2018-08-22] MEDS: INSULIN HUMULIN R 100 UNIT/ML 3ML SQ SCH ×4 (06:13→20:56)
[2018-08-22 06:17] LABS: CREATININE 3.9 mg/dL (0.5-1.5)
[2018-08-22] MEDS: INSULIN LISPRO 100 UNIT/ML 3ML SQ SCH ×3 (06:40→17:00)
[2018-08-22] MEDS: FOLIC ACID/VITAMIN B COMP W-C 1 MG CAP/TAB PO SCH ×2 (09:00→09:09)
[2018-08-22] MEDS: POLYETHYLENE GLYCOL 3350 17 GM POWD.PACK PO SCH ×2 (09:00→09:08)
[2018-08-22] MEDS: DOXEPIN HCL 25 MG CAP PO SCH ×2 (09:00→20:59)
[2018-08-22] MEDS: SEVELAMER HCL 800 MG TABLET PO SCH ×3 (09:04→17:31)
[2018-08-22] MEDS: ZOSYN 3.375GM+NS 50ML 50 ML IV SCH ×2 (09:06→20:59)
[2018-08-22] MEDS: FAMOTIDINE/PF 20 MG/2 ML VIAL IV SCH (09:06)
[2018-08-22] MEDS: ASPIRIN 81 MG EC TAB PO SCH (09:07)
[2018-08-22] MEDS: CARVEDILOL 25 MG TABLET PO SCH ×2 (09:07→20:59)
[2018-08-22] MEDS: PAROXETINE HCL 20 MG TABLET PO SCH (09:09)
[2018-08-22] MEDS: ROPINIROLE HCL 1 MG TABLET PO SCH ×3 (09:09→21:01)
[2018-08-22] MEDS: AMLODIPINE BESYLATE 5 MG TAB PO SCH ×2 (09:09→20:57)
[2018-08-22] MEDS: ENOXAPARIN SODIUM 30 MG/0.3 ML SQ SCH (09:11)
[2018-08-22] MEDS: HYDROCODONE/ACETAMINOPHEN 5/325 MG TAB PO PRN (17:32)
[2018-08-22] MEDS: INSULIN GLARGINE 100 UNITS/ML 10 ML VIAL SQ SCH (20:56)
[2018-08-22] MEDS: LISINOPRIL 40 MG TABLET PO SCH (21:00)
[2018-08-23 03:50] VITALS: BP 154/72
[2018-08-23] MEDS: MORPHINE SULFATE 4 MG/1ML SYG IV PRN (04:16)
[2018-08-23 06:22] LABS: BASOPHILS % (AUTO) 0.2 % (0.0-5.0); EOSINOPHILS % (AUTO) 2.4 % (0.0-8.0); HEMATOCRIT 28.6 % (36-48); LYMPHOCYTES % (AUTO) 6.3 % (21.0-51.0); MEAN CORPUSCULAR HEMOGLOBIN 27.7 pg (27.0-33.0); MEAN CORPUSCULAR HGB CONC 32.4 g/dL (32.0-36.0); MEAN CORPUSCULAR VOLUME 85.6 fL (79-99); MONOCYTES % (AUTO) 4.2 % (3.0-13.0); NEUTROPHILS % (AUTO) 86.9 % (40.0-77.0); PLATELET COUNT (AUTO) 224 K/uL (130-400); RED BLOOD CELL COUNT(AUTO) 3.35 MIL/uL (4.00-5.50); RED CELL DISTRIBUTION WIDTH 19.4 % (11.0-15.5); WHITE BLOOD COUNT (AUTO) 12.9 K/uL (4.8-10.8)
[2018-08-23] MEDS: INSULIN HUMULIN R 100 UNIT/ML 3ML SQ SCH ×4 (06:31→21:00)
[2018-08-23] MEDS: INSULIN LISPRO 100 UNIT/ML 3ML SQ SCH ×3 (06:31→17:00)
[2018-08-23 06:35] LABS: CREATININE 5.2 mg/dL (0.5-1.5); POTASSIUM 4.2 mmol/L (3.5-5.1)
[2018-08-23 08:00] VITALS: BP 167/76
[2018-08-23] MEDS: ZOSYN 3.375GM+NS 50ML 50 ML IV SCH (08:37)
[2018-08-23] MEDS: FAMOTIDINE/PF 20 MG/2 ML VIAL IV SCH (08:38)
[2018-08-23] MEDS: POLYETHYLENE GLYCOL 3350 17 GM POWD.PACK PO SCH (08:39)
[2018-08-23] MEDS: ASPIRIN 81 MG EC TAB PO SCH (08:39)
[2018-08-23] MEDS: SEVELAMER HCL 800 MG TABLET PO SCH ×3 (08:39→17:00)
[2018-08-23] MEDS: CARVEDILOL 25 MG TABLET PO SCH ×2 (08:40→22:52)
[2018-08-23] MEDS: ROPINIROLE HCL 1 MG TABLET PO SCH ×3 (08:40→22:51)
[2018-08-23] MEDS: PAROXETINE HCL 20 MG TABLET PO SCH (08:40)
[2018-08-23] MEDS: AMLODIPINE BESYLATE 5 MG TAB PO SCH ×2 (08:40→22:53)
[2018-08-23] MEDS: DOXEPIN HCL 25 MG CAP PO SCH ×2 (08:40→22:51)
[2018-08-23] MEDS: FOLIC ACID/VITAMIN B COMP W-C 1 MG CAP/TAB PO SCH ×2 (08:40→09:00)
[2018-08-23] MEDS: ENOXAPARIN SODIUM 30 MG/0.3 ML SQ SCH (08:41)
[2018-08-23] MEDS: LIDOCAINE HCL 5% OINT 36GM TUBE TP SCH (08:48)
[2018-08-23 12:00] VITALS: BP 157/69
[2018-08-23] MEDS ORDERED: COMPOUND IV REFRIGERATED 1 EACH IVSOLN MISC PRN (14:15)
--- NOTE | 2018-08-23 14:42 | NUR ---
SENT TO [facility] HAVE PT NOTES, BUT STILL PENDING FINAL RX FOR ABX. AWAITING DR. MAYA Addendum: 08/24/18 at 1444 by ROYCE DALE RN CM Amended: Links added.
[2018-08-23] MEDS: HYDROCODONE/ACETAMINOPHEN 5/325 MG TAB PO PRN (15:34)
[2018-08-23] MEDS: CEFTRIAXONE SODIUM 2 GM VIAL IVP SCH (15:34)
[2018-08-23 16:00] VITALS: BP 140/60
--- NOTE | 2018-08-23 16:10 | NUR ---
[facility] consult Patient assessed as ordered. Patient s/p surgery to left ankle with wound vac placement. Patient reports c/o discomfort/tenderness to left ankle and grimaces during removal of wound vac dressing. Patient was medicated for pain earlier per nurse. Dressing removed slowly using adhesive remover and soaking with saline; upon removal black foam was noted to be stapled in place. Patient's nurse, Rain SANTOS, contacted Dr. Long and obtained order to remove only the chinedu holding foam in place. A total of 5 chinedu were removed. Wound was cleansed with saline, then a protective layer of adaptic placed in wound and wound vac was placed using 3 pieces of black foam at 125 mmHg continuous suction. Patient tolerated procedure without adverse effects. Report given to patient's nurse, Rain SANTOS. Addendum: 08/23/18 at 1737 by TIMOTEO NIELSEN RN/PAOLA Amended: Links added.
--- NOTE | 2018-08-23 17:04 | NUR ---
WOUND CARE WOUND VAC CHANGED TO LEFT FOOT INCISION BY [facility] MAHMOOD/ROGER FROM [facility]. 5 MARIA DEL CARMEN REMOVED FROM BLACK SPONGE. OKAY TO REMOVE PER DR. GRANADOS. PICTURE TAKEN AND PLACED IN CHART. MEASUREMENTS OF 6.0 X 4.5 X 0.5. PATIENT STABLE AT THIS TIME.
[2018-08-23] MEDS ORDERED: VANCOMYCIN 1.25 GM in SODIUM CHLORIDE 0.9% 250 ML IV SCH (18:00)
--- NOTE | 2018-08-23 19:00 | NUR ---
DIALYSIS PATIENT S/P DIALYSIS TO LEFT THIGH AV FISTULA. 2L REMOVED. 97.7 - 87 - 18 - 130/66 Addendum: 08/23/18 at 1956 by MELA WRIGHT LVN LVN AV GRAFT
[2018-08-23 20:30] VITALS: BP 159/69
[2018-08-23] MEDS: INSULIN GLARGINE 100 UNITS/ML 10 ML VIAL SQ SCH (21:00)
[2018-08-23] MEDS: LISINOPRIL 40 MG TABLET PO SCH (22:51)
[2018-08-24 00:20] VITALS: BP 159/76
[2018-08-24 04:48] VITALS: BP 163/94
[2018-08-24 05:51] LABS: BASOPHILS % (AUTO) 0.3 % (0.0-5.0); EOSINOPHILS % (AUTO) 2.5 % (0.0-8.0); HEMATOCRIT 25.8 % (36-48); LYMPHOCYTES % (AUTO) 5.1 % (21.0-51.0); MEAN CORPUSCULAR HEMOGLOBIN 27.5 pg (27.0-33.0); MEAN CORPUSCULAR VOLUME 85.8 fL (79-99); MONOCYTES % (AUTO) 5.1 % (3.0-13.0); PLATELET COUNT (AUTO) 186 K/uL (130-400); RED BLOOD CELL COUNT(AUTO) 3.01 MIL/uL (4.00-5.50); RED CELL DISTRIBUTION WIDTH 19.2 % (11.0-15.5); WHITE BLOOD COUNT (AUTO) 10.5 K/uL (4.8-10.8)
[2018-08-24 06:03] LABS: CREATININE 3.4 mg/dL (0.5-1.5); POTASSIUM 3.6 mmol/L (3.5-5.1)
[2018-08-24] MEDS: INSULIN HUMULIN R 100 UNIT/ML 3ML SQ SCH ×4 (07:30→21:00)
[2018-08-24 08:00] VITALS: BP 183/88
[2018-08-24] MEDS: FAMOTIDINE/PF 20 MG/2 ML VIAL IV SCH (08:45)
[2018-08-24] MEDS: ASPIRIN 81 MG EC TAB PO SCH (08:45)
[2018-08-24] MEDS: SEVELAMER HCL 800 MG TABLET PO SCH ×3 (08:45→16:39)
[2018-08-24] MEDS: DOXEPIN HCL 25 MG CAP PO SCH ×2 (08:45→21:35)
[2018-08-24] MEDS: FOLIC ACID/VITAMIN B COMP W-C 1 MG CAP/TAB PO SCH ×2 (08:45)
[2018-08-24] MEDS: AMLODIPINE BESYLATE 5 MG TAB PO SCH ×2 (08:46→21:35)
[2018-08-24] MEDS: ROPINIROLE HCL 1 MG TABLET PO SCH ×3 (08:46→21:35)
[2018-08-24] MEDS: CARVEDILOL 25 MG TABLET PO SCH ×2 (08:46→21:36)
[2018-08-24] MEDS: POLYETHYLENE GLYCOL 3350 17 GM POWD.PACK PO SCH (08:46)
[2018-08-24] MEDS: PAROXETINE HCL 20 MG TABLET PO SCH (08:46)
[2018-08-24] MEDS: ENOXAPARIN SODIUM 30 MG/0.3 ML SQ SCH (08:47)
[2018-08-24] MEDS: INSULIN LISPRO 100 UNIT/ML 3ML SQ SCH ×3 (08:48→16:40)
[2018-08-24 11:53] VITALS: BP 155/68
[2018-08-24] MEDS: CEFTRIAXONE SODIUM 2 GM VIAL IVP SCH (13:42)
[2018-08-24] MEDS: MORPHINE SULFATE 4 MG/1ML SYG IV PRN ×2 (13:43→22:15)
[2018-08-24] MEDS ORDERED: BISACODYL 10 MG SUPP.RECT RC PRN (14:30)
--- NOTE | 2018-08-24 14:45 | NUR ---
CAPRICE ARITA AWAITING EVAL AND AUTH EXPECT AUTH WILL BE SUBMITTED TOMORROW Addendum: 08/24/18 at 1446 by ROYCE DALE RN CM Amended: Links added.
[2018-08-24 16:00] VITALS: BP 151/61
[2018-08-24 20:00] VITALS: BP 146/77
[2018-08-24] MEDS: INSULIN GLARGINE 100 UNITS/ML 10 ML VIAL SQ SCH (21:00)
[2018-08-24] MEDS: LISINOPRIL 40 MG TABLET PO SCH (21:35)
[2018-08-25 00:06] VITALS: BP 165/84
[2018-08-25 04:07] VITALS: BP 160/68
[2018-08-25] MEDS: INSULIN LISPRO 100 UNIT/ML 3ML SQ SCH ×3 (06:08→17:00)
[2018-08-25] MEDS: INSULIN HUMULIN R 100 UNIT/ML 3ML SQ SCH ×4 (06:08→21:00)
[2018-08-25 06:25] LABS: CREATININE 4.7 mg/dL (0.5-1.5); EOSINOPHILS % (AUTO) 3.5 % (0.0-8.0); HEMATOCRIT 29.2 % (36-48); LYMPHOCYTES % (AUTO) 8.1 % (21.0-51.0); MEAN CORPUSCULAR HEMOGLOBIN 28.3 pg (27.0-33.0); MEAN CORPUSCULAR HGB CONC 32.4 g/dL (32.0-36.0); MEAN CORPUSCULAR VOLUME 87.3 fL (79-99); NEUTROPHILS % (AUTO) 82.4 % (40.0-77.0); PHOSPHORUS 5.2 mg/dL (2.5-4.9); PLATELET COUNT (AUTO) 162 K/uL (130-400); POTASSIUM 3.8 mmol/L (3.5-5.1); RED BLOOD CELL COUNT(AUTO) 3.35 MIL/uL (4.00-5.50); RED CELL DISTRIBUTION WIDTH 19.5 % (11.0-15.5); WHITE BLOOD COUNT (AUTO) 7.6 K/uL (4.8-10.8)
[2018-08-25 07:00] VITALS: BP 172/72
[2018-08-25] MEDS: SEVELAMER HCL 800 MG TABLET PO SCH ×3 (07:49→16:51)
[2018-08-25] MEDS: DOXEPIN HCL 25 MG CAP PO SCH ×2 (08:32→22:17)
[2018-08-25] MEDS: PAROXETINE HCL 20 MG TABLET PO SCH (08:32)
[2018-08-25] MEDS: CARVEDILOL 25 MG TABLET PO SCH ×3 (08:33→22:18)
[2018-08-25] MEDS: FAMOTIDINE/PF 20 MG/2 ML VIAL IV SCH (08:33)
[2018-08-25] MEDS: ASPIRIN 81 MG EC TAB PO SCH (08:33)
[2018-08-25] MEDS: ROPINIROLE HCL 1 MG TABLET PO SCH ×3 (08:33→22:17)
[2018-08-25] MEDS: AMLODIPINE BESYLATE 5 MG TAB PO SCH ×2 (08:34→22:17)
[2018-08-25] MEDS: POLYETHYLENE GLYCOL 3350 17 GM POWD.PACK PO SCH (08:34)
[2018-08-25] MEDS: FOLIC ACID/VITAMIN B COMP W-C 1 MG CAP/TAB PO SCH ×2 (08:34)
[2018-08-25] MEDS: ENOXAPARIN SODIUM 30 MG/0.3 ML SQ SCH (08:35)
[2018-08-25] MEDS ORDERED: VANCOMYCIN 1GM+NS 250ML 250 ML IV SCH (09:00)
[2018-08-25] MEDS: LIDOCAINE HCL 5% OINT 36GM TUBE TP SCH (09:00)
--- NOTE | 2018-08-25 09:24 | NUR ---
PATIENT WILL BENEFIT FROM REHAB FACILITY TO IMPROVE HER OVERALL FUNCTIONAL MOBILITY WITH SW AND NWB TO AFFECTED EXTREMITY AND IMPROVE HER ADL'S AT HOME. Addendum: 08/25/18 at 0926 by CALLY AMAYA, PT PT Amended: Links added.
[2018-08-25 11:00] VITALS: BP 149/81
[2018-08-25] MEDS: CEFTRIAXONE SODIUM 2 GM VIAL IVP SCH (14:07)
[2018-08-25 16:00] VITALS: BP 161/78
--- NOTE | 2018-08-25 18:26 | NUR ---
RDSCREEN - LOS x 7 Pt with ESRD on HD MWF. Pt reports improved appetite. PO intake 75-100%. Pt request for Nepro stored in unit refrigerator. Pt LBM 08/25/18. Pt monitored labs: Na 131, Cl 92, BUN 26, Cr 4.7, GFR 10, Glu 152, P 5.2, Alb 2.3. RD to continue to monitor. Please notify RD as nutritional concerns arise. Thank you. Addendum: 08/25/18 at [address] Amended: Links added.
[2018-08-25] MEDS: MORPHINE SULFATE 4 MG/1ML SYG IV PRN (18:37)
[2018-08-25 19:16] VITALS: BP 153/80
[2018-08-25] MEDS: INSULIN GLARGINE 100 UNITS/ML 10 ML VIAL SQ SCH (21:00)
--- NOTE | 2018-08-25 21:47 | NUR ---
Received report from HD nurse pt dialyzed for 3 hrs and 2.8 Liters fluid out .V/Sstable.Pt.tolerated well.
[2018-08-25] MEDS: LISINOPRIL 40 MG TABLET PO SCH (22:18)
[2018-08-25] MEDS: HYDROCODONE/ACETAMINOPHEN 5/325 MG TAB PO PRN (22:27)
[2018-08-26 00:10] VITALS: BP 158/71
[2018-08-26 04:05] VITALS: BP 177/96
[2018-08-26 05:05] LABS: BASOPHILS % (AUTO) 0.2 % (0.0-5.0); EOSINOPHILS % (AUTO) 3.9 % (0.0-8.0); HEMATOCRIT 24.4 % (36-48); LYMPHOCYTES % (AUTO) 9.4 % (21.0-51.0); MEAN CORPUSCULAR HEMOGLOBIN 28.6 pg (27.0-33.0); MEAN CORPUSCULAR HGB CONC 32.8 g/dL (32.0-36.0); MEAN CORPUSCULAR VOLUME 87.4 fL (79-99); MONOCYTES % (AUTO) 7.8 % (3.0-13.0); NEUTROPHILS % (AUTO) 78.7 % (40.0-77.0); PLATELET COUNT (AUTO) 152 K/uL (130-400); RED BLOOD CELL COUNT(AUTO) 2.79 MIL/uL (4.00-5.50); RED CELL DISTRIBUTION WIDTH 19.2 % (11.0-15.5); WHITE BLOOD COUNT (AUTO) 4.9 K/uL (4.8-10.8)
[2018-08-26 05:23] LABS: POTASSIUM 3.6 mmol/L (3.5-5.1)
[2018-08-26] MEDS: INSULIN LISPRO 100 UNIT/ML 3ML SQ SCH ×3 (06:26→17:00)
[2018-08-26] MEDS: INSULIN HUMULIN R 100 UNIT/ML 3ML SQ SCH ×4 (06:28→22:30)
[2018-08-26 07:00] VITALS: BP 167/77
[2018-08-26] MEDS: POLYETHYLENE GLYCOL 3350 17 GM POWD.PACK PO SCH ×2 (09:00→10:28)
[2018-08-26] MEDS: FOLIC ACID/VITAMIN B COMP W-C 1 MG CAP/TAB PO SCH ×2 (09:00→10:28)
[2018-08-26] MEDS: PAROXETINE HCL 20 MG TABLET PO SCH (10:26)
[2018-08-26] MEDS: CARVEDILOL 25 MG TABLET PO SCH ×2 (10:27→20:46)
[2018-08-26] MEDS: AMLODIPINE BESYLATE 5 MG TAB PO SCH ×2 (10:28→20:45)
[2018-08-26] MEDS: ASPIRIN 81 MG EC TAB PO SCH (10:28)
[2018-08-26] MEDS: DOXEPIN HCL 25 MG CAP PO SCH ×2 (10:28→20:46)
[2018-08-26] MEDS: FAMOTIDINE/PF 20 MG/2 ML VIAL IV SCH ×2 (10:29→10:44)
[2018-08-26] MEDS: SEVELAMER HCL 800 MG TABLET PO SCH ×2 (10:30→17:09)
[2018-08-26] MEDS: ROPINIROLE HCL 1 MG TABLET PO SCH ×3 (10:44→20:45)
[2018-08-26] MEDS: ENOXAPARIN SODIUM 30 MG/0.3 ML SQ SCH (10:46)
[2018-08-26 11:00] VITALS: BP 149/80
[2018-08-26] MEDS: CEFTRIAXONE SODIUM 2 GM VIAL IVP SCH (12:58)
[2018-08-26 16:00] VITALS: BP 147/71
[2018-08-26 19:05] VITALS: BP 171/77
[2018-08-26] MEDS ORDERED: MORPHINE SULFATE 2 MG/ML 1ML SYG IM PRN (20:00)
[2018-08-26] MEDS: LISINOPRIL 40 MG TABLET PO SCH (20:45)
[2018-08-26] MEDS: INSULIN GLARGINE 100 UNITS/ML 10 ML VIAL SQ SCH (22:24)
[2018-08-27 00:05] VITALS: BP 151/70
[2018-08-27 04:00] VITALS: BP 150/68
[2018-08-27] MEDS: INSULIN LISPRO 100 UNIT/ML 3ML SQ SCH ×4 (06:27→17:00)
[2018-08-27] MEDS: INSULIN HUMULIN R 100 UNIT/ML 3ML SQ SCH ×4 (06:27→21:00)
[2018-08-27 07:00] VITALS: BP 165/89
[2018-08-27 07:18] LABS: BASOPHILS % (AUTO) 0.3 % (0.0-5.0); EOSINOPHILS % (AUTO) 5.1 % (0.0-8.0); HEMATOCRIT 25.9 % (36-48); LYMPHOCYTES % (AUTO) 7.5 % (21.0-51.0); MEAN CORPUSCULAR HEMOGLOBIN 28.3 pg (27.0-33.0); MEAN CORPUSCULAR HGB CONC 32.2 g/dL (32.0-36.0); MEAN CORPUSCULAR VOLUME 87.7 fL (79-99); MONOCYTES % (AUTO) 7.2 % (3.0-13.0); NEUTROPHILS % (AUTO) 79.9 % (40.0-77.0); PLATELET COUNT (AUTO) 150 K/uL (130-400); RED BLOOD CELL COUNT(AUTO) 2.95 MIL/uL (4.00-5.50); WHITE BLOOD COUNT (AUTO) 6.6 K/uL (4.8-10.8)
[2018-08-27 07:30] LABS: CREATININE 4.2 mg/dL (0.5-1.5); POTASSIUM 4.1 mmol/L (3.5-5.1)
[2018-08-27] MEDS: POLYETHYLENE GLYCOL 3350 17 GM POWD.PACK PO SCH (09:00)
[2018-08-27] MEDS: FOLIC ACID/VITAMIN B COMP W-C 1 MG CAP/TAB PO SCH (09:07)
[2018-08-27] MEDS: PAROXETINE HCL 20 MG TABLET PO SCH (09:08)
[2018-08-27] MEDS: DOXEPIN HCL 25 MG CAP PO SCH ×2 (09:08→21:17)
[2018-08-27] MEDS: ROPINIROLE HCL 1 MG TABLET PO SCH ×3 (09:08→21:17)
[2018-08-27] MEDS: CARVEDILOL 25 MG TABLET PO SCH ×2 (09:09→21:16)
[2018-08-27] MEDS: ASPIRIN 81 MG EC TAB PO SCH (09:09)
[2018-08-27] MEDS: AMLODIPINE BESYLATE 5 MG TAB PO SCH ×2 (09:10→21:17)
[2018-08-27] MEDS: ENOXAPARIN SODIUM 30 MG/0.3 ML SQ SCH (09:10)
[2018-08-27] MEDS: SEVELAMER HCL 800 MG TABLET PO SCH ×3 (09:11→17:17)
[2018-08-27 12:00] VITALS: BP 148/70
[2018-08-27] MEDS: CEFTRIAXONE SODIUM 2 GM VIAL IVP SCH (13:10)
[2018-08-27 16:00] VITALS: BP 140/67
[2018-08-27 19:15] VITALS: BP 109/51
--- NOTE | 2018-08-27 20:00 | NUR ---
TOP OF LEFT FOOT RED AND SWOLLEN WITH SIGNIFICANT SWELLING TO LOWER LEG WELL. PATIENT DISCOURAGED FROM PICKING/PRESSING ON FLUID-FILLED BLISTER TO TOP OF FOOT. Addendum: 08/28/18 at 0810 by JUNIOR VALLE RN RN Amended: Links added.
[2018-08-27] MEDS: INSULIN GLARGINE 100 UNITS/ML 10 ML VIAL SQ SCH (21:00)
[2018-08-27] MEDS: LISINOPRIL 40 MG TABLET PO SCH (21:00)
[2018-08-27] MEDS: HYDROCODONE/ACETAMINOPHEN 5/325 MG TAB PO PRN (21:19)
[2018-08-28] VITALS (7 sets, daily range): BP systolic 122–165; BP diastolic 67–77
[2018-08-28] MEDS: INSULIN HUMULIN R 100 UNIT/ML 3ML SQ SCH ×4 (06:36→20:47)
[2018-08-28 06:54] LABS: BASOPHILS % (AUTO) 0.7 % (0.0-5.0); EOSINOPHILS % (AUTO) 4.8 % (0.0-8.0); HEMATOCRIT 23.8 % (36-48); LYMPHOCYTES % (AUTO) 8.7 % (21.0-51.0); MEAN CORPUSCULAR HEMOGLOBIN 27.9 pg (27.0-33.0); MEAN CORPUSCULAR HGB CONC 32.3 g/dL (32.0-36.0); MEAN CORPUSCULAR VOLUME 86.5 fL (79-99); NEUTROPHILS % (AUTO) 75.8 % (40.0-77.0); PLATELET COUNT (AUTO) 158 K/uL (130-400); RED BLOOD CELL COUNT(AUTO) 2.75 MIL/uL (4.00-5.50); RED CELL DISTRIBUTION WIDTH 20.2 % (11.0-15.5); WHITE BLOOD COUNT (AUTO) 5.3 K/uL (4.8-10.8)
[2018-08-28 07:06] LABS: CREATININE 5.3 mg/dL (0.5-1.5); POTASSIUM 3.8 mmol/L (3.5-5.1)
[2018-08-28] MEDS: INSULIN LISPRO 100 UNIT/ML 3ML SQ SCH ×3 (07:30→16:30)
[2018-08-28] MEDS: FAMOTIDINE/PF 20 MG/2 ML VIAL IV SCH (08:25)
[2018-08-28] MEDS: FOLIC ACID/VITAMIN B COMP W-C 1 MG CAP/TAB PO SCH (08:26)
[2018-08-28] MEDS: SEVELAMER HCL 800 MG TABLET PO SCH ×3 (08:26→16:35)
[2018-08-28] MEDS: ASPIRIN 81 MG EC TAB PO SCH (08:26)
[2018-08-28] MEDS: DOXEPIN HCL 25 MG CAP PO SCH ×2 (08:27→20:52)
[2018-08-28] MEDS: AMLODIPINE BESYLATE 5 MG TAB PO SCH ×3 (08:28→20:53)
[2018-08-28] MEDS: ROPINIROLE HCL 1 MG TABLET PO SCH ×3 (08:28→20:52)
[2018-08-28] MEDS: ENOXAPARIN SODIUM 30 MG/0.3 ML SQ SCH (08:29)
[2018-08-28] MEDS: PAROXETINE HCL 20 MG TABLET PO SCH (08:34)
[2018-08-28] MEDS: LIDOCAINE HCL 5% OINT 36GM TUBE TP SCH (09:00)
--- NOTE | 2018-08-28 09:07 | NUR ---
NOTIFIED DR. GRANADOS ANSWERING SERVICE. SPOKE WITH JERRY TO RELY CONSULT TO DR. GRANADOS.
--- NOTE | 2018-08-28 09:30 | NUR ---
Dr Long was informed of reconsult orders by Dr Vera, he said to have a 3 cc syringe ready in the room with a 21 g needle and 4x4 gauze along with culture swabs for a bedside needle aspiration.
--- NOTE | 2018-08-28 10:00 | NUR ---
CLEANED LEFT FOOT WOUND WITH NORMAL SALINE AND PACKED WITH SOAKED BETADINE , 4X4 AND SECURED WITH TAPE. PATIENT TOLERATED PROCEDURE WELL .
--- NOTE | 2018-08-28 10:00 | NUR ---
Dr Long performed bedside needle aspiration and sent for cultures , pt tolerated well.
[2018-08-28] MEDS: CEFTRIAXONE SODIUM 2 GM VIAL IVP SCH (14:23)
--- NOTE | 2018-08-28 16:40 | NUR ---
[facility], PT AWARE NEW REFERRAL TO [facility] REP CALLED, REFERRAL FAXED., PASSR PENDING Addendum: 08/28/18 at 1644 by ROYCE DALE RN CM Amended: Links added.
--- NOTE | 2018-08-28 18:00 | NUR ---
CLEANED LEFT FOOT WOUND WITH NORMAL SALINE AND PACKED WITH SOAKED BETADINE , 4X4 AND SECURED WITH TAPE. PATIENT TOLERATED PROCEDURE WELL .
[2018-08-28] MEDS: CARVEDILOL 25 MG TABLET PO SCH ×2 (19:29→20:53)
[2018-08-28] MEDS: LISINOPRIL 40 MG TABLET PO SCH (20:53)
[2018-08-28] MEDS: INSULIN GLARGINE 100 UNITS/ML 10 ML VIAL SQ SCH (21:25)
[2018-08-28] MEDS: HYDROCODONE/ACETAMINOPHEN 5/325 MG TAB PO PRN (23:10)
--- NOTE | 2018-08-29 02:30 | NUR ---
[id number] SHIFT, PATIENT HAS BEEN INCREASINGLY UPSET SHE KEEPS REQUESTING ICE CHIPS AND WATER. SHE WAS REMINDED AND EXPLAINED ON IMPORTANCE OF ADHERING TO FLUID RESTRICTION ORDERED. HOWEVER, SHE INSISTS DIETARY SENDS HER APPROXIMATELY ONLY 4OZ PER MEAL AND NO WHERE CLOSE TO THE LITER DIETARY IS ALLOWED. PATIENT CRIES AND BECOMES ARGUMENTATIVE SHE KEEPS REQUESTING INCREASE IN FLUIDS. SHE WAS ENCOURAGED TO DISCUSS THIS MATTER WITH MD TOMORROW. APPEARS VERY RESTLESS THIS SHIFT SHE KEEPS WALKING AROUND INSIDE ROOM. SHE HAS HAD WOUND VAC SUCTION CUP PULLED OFF ONCE, REQUIRING APPLICATION OF ADDITIONAL FILM TO SECURE IN PLACE AND AVOID LEAKS. ENCOURAGED TO STAY IN BED AND KEEP LEGS ELEVATED TO HELP DECREASE LEG SWELLING THEY APPEAR VERY SWOLLEN TODAY. AGAIN BECOME UPSET WITH STAFF SHE FEELS WE ARE TREATING HER A CHILD. SHE REFUSES TO STAY IN BED AND CONTINUES PULLING ON WOUND VAC TUBING SHE USES WALKER TO WALK AROUND THE ROOM AND PREFERS TO SIT UP ON REGULAR CHAIR. WILL CONTINUE TO MONITOR.
[2018-08-29 03:15] VITALS: BP 139/68
[2018-08-29] MEDS ORDERED: DEXTROSE 50%-WATER 50 ML DISP.SYRIN IV ONE ×2 (04:17→04:20)
--- NOTE | 2018-08-29 04:20 | NUR ---
HYPOGLYCEMIA-BS 33MG/DL, PATIENT DIAPHORETIC, BUT EASILY AROUSABLE. WILL CONTINUE TO MONITOR.
--- NOTE | 2018-08-29 05:15 | NUR ---
HYPOGLYCEMIA-BLOOD SUGAR RECHECK INCREASED TO 111MG/DL. PATIENT RESTING ON CARDIAC CHAIR WITH EYES CLOSED, BUT EASILY AROUSABLE, STATES FEELS BETTER.
[2018-08-29] MEDS: INSULIN LISPRO 100 UNIT/ML 3ML SQ SCH ×3 (05:20→17:29)
[2018-08-29] MEDS: INSULIN HUMULIN R 100 UNIT/ML 3ML SQ SCH ×3 (05:20→17:23)
[2018-08-29 06:04] LABS: MEAN CORPUSCULAR HEMOGLOBIN 28.4 pg (27.0-33.0); MEAN CORPUSCULAR HGB CONC 32.6 g/dL (32.0-36.0); MEAN CORPUSCULAR VOLUME 87.4 fL (79-99); NUCLEATED RED BLOOD CELLS 0.1 % (0.0-0.19); PLATELET COUNT (AUTO) 138 K/uL (130-400); RED BLOOD CELL COUNT(AUTO) 2.75 MIL/uL (4.00-5.50); RED CELL DISTRIBUTION WIDTH 20.4 % (11.0-15.5); WHITE BLOOD COUNT (AUTO) 4.6 K/uL (4.8-10.8)
[2018-08-29 06:43] LABS: CREATININE 3.4 mg/dL (0.5-1.5); POTASSIUM 3.4 mmol/L (3.5-5.1)
[2018-08-29 08:00] VITALS: BP 133/72
[2018-08-29] MEDS: SEVELAMER HCL 800 MG TABLET PO SCH ×3 (09:00→16:52)
[2018-08-29] MEDS: ASPIRIN 81 MG EC TAB PO SCH (09:00)
[2018-08-29] MEDS: AMLODIPINE BESYLATE 5 MG TAB PO SCH (09:00)
--- NOTE | 2018-08-29 09:00 | NUR ---
CANNOT GO TO [facility]- OUT OF NETWORK PT TO INFORM FMAILY OF CHANGE IN ABBY FROM [facility] CALLED- PT WOULD HAVE TO PAY 40% . PT ADVISED, VERBAL CONSENT FOR MARY. CALL TO MARY, PKT SENT, PT STATES WILL CALL HER SISTER TO CLARIFY Addendum: 08/30/18 at 0930 by ROYCE DALE RN CM Amended: Links added.
--- NOTE | 2018-08-29 09:00 | NUR ---
CLEANED LEFT FOOT WOUND WITH NORMAL SALINE AND PACKED WITH SOAKED BETADINE , 4X4 AND SECURED WITH TAPE. PATIENT TOLERATED PROCEDURE WELL .
[2018-08-29] MEDS: DOXEPIN HCL 25 MG CAP PO SCH (09:01)
[2018-08-29] MEDS: FOLIC ACID/VITAMIN B COMP W-C 1 MG CAP/TAB PO SCH (09:01)
[2018-08-29] MEDS: ROPINIROLE HCL 1 MG TABLET PO SCH ×2 (09:01→14:13)
[2018-08-29] MEDS: PAROXETINE HCL 20 MG TABLET PO SCH (09:01)
[2018-08-29] MEDS: FAMOTIDINE/PF 20 MG/2 ML VIAL IV SCH (09:02)
[2018-08-29] MEDS: CARVEDILOL 25 MG TABLET PO SCH (09:03)
[2018-08-29] MEDS: ENOXAPARIN SODIUM 30 MG/0.3 ML SQ SCH (09:03)
[2018-08-29 12:00] VITALS: BP 135/60
--- NOTE | 2018-08-29 13:00 | NUR ---
MARY BARGER HERE TO SEE PT PT SHOWED ME HER INSURANCE CARD, NEEDS EXPLANATION WHY [facility] WOULD NOT TAKE- ADVISED HER [facility] CALLED HER INSURANCE AND SHE WOULD BE RESPONSIBLE FOR 40% OF THE BILL- PT AGREED NOT POSSIBLE, PT STATES 'MY SISTER SAID I WOULD PROBABLY LIKE [facility] BETTER ANYWAY" , TOLD HER DISCHARGE IS FOR TODAY, VERBALIZED UNDERSTANDING MARY BARGER BETTY CAME TO SEE PT. WAITING FOR APPROVAL FROM INSURANCE Addendum: 08/30/18 at 0936 by RYOCE DALE RN CM Amended: Links added.
[2018-08-29] MEDS: CEFTRIAXONE SODIUM 2 GM VIAL IVP SCH (14:13)
--- NOTE | 2018-08-29 15:00 | NUR ---
ACCEPTED AT [facility] ADVISED PRIMARY RN AND PMD. MED REC DONE, VAN TRANSPORT EXPECTED , ARRANGEMENT FOR WOUND VAC MADE WITH CM DIRECTOR/[employer]ARM [employer] SHIPPER/[facility] REP ADVISED PT OF ACCEPTANCE, SHE STATED GREAT, ASKED PT TO CALL HER SISTER, ASKED HER ABOUT CLOTHES AND WHETHER SHE HAD EVERY THING SHE NEEDED. STATED SHE WOULD NEED CLOTHES BROUGHT, WILL MAKE CALL- @ 1730 SAW HER DRESSED - STATES READY TO GO GET REHAB. Addendum: 08/30/18 at 0940 by ROYCE DALE RN CM Amended: Links added.
[2018-08-29 16:00] VITALS: BP 140/72
--- NOTE | 2018-08-29 18:00 | NUR ---
REPORT GIVEN TO LIZA YANEZ PERSONNEL ASSISTANT. ALL QUESTIONS ANSWERED. IV REMAINED IN PER YESI VEGAN COMMENT DUE TO PATIENT A HARD STICK. PATIENT TO FOLLOW UP WITH MULTIPLE DOCTORS. ALL APPOINTMENTS HAD BEEN MADE.
== END 2018-08-29 19:30 | DRG 853 ==
LOC: EDH 14:57 → EDHIP 19:22 → 3BH 20:44
PROVIDERS: ADMIT Internal Medicine; ATTEND Internal Medicine
PROC: 0QBC0ZZ Excision of Left Lower Femur, Open Approach (ICD-10-PCS; 2018-08-19)
PROC: 2W5MXYZ Removal of Other Device on Left Lower Extremity (ICD-10-PCS; 2018-08-19)
PROC: 5A1D70Z Performance of Urinary Filtration, Intermittent, Less than 6 Hours Per Day (ICD-10-PCS; principal; 2018-08-19 00:49)
PROC: 0HBNXZZ Excision of Left Foot Skin, External Approach (ICD-10-PCS; 2018-08-21)
PROC: 5A1D70Z Performance of Urinary Filtration, Intermittent, Less than 6 Hours Per Day (ICD-10-PCS; 2018-08-21 13:11)
PROC: 5A1D70Z Performance of Urinary Filtration, Intermittent, Less than 6 Hours Per Day (ICD-10-PCS; 2018-08-23)
PROC: 5A1D70Z Performance of Urinary Filtration, Intermittent, Less than 6 Hours Per Day (ICD-10-PCS; 2018-08-25)
PROC: 5A1D70Z Performance of Urinary Filtration, Intermittent, Less than 6 Hours Per Day (ICD-10-PCS; 2018-08-28)
DX: A41.9 Sepsis, unspecified organism (principal); M72.6 Necrotizing fasciitis; N18.6 End stage renal disease; L03.116 Cellulitis of left lower limb; E87.1 Hypo-osmolality and hyponatremia; I50.32 Chronic diastolic (congestive) heart failure; I13.2 Hypertensive heart and chronic kidney disease with heart failure and with stage 5 chronic kidney disease, or end stage renal disease; L02.416 Cutaneous abscess of left lower limb; E11.22 Type 2 diabetes mellitus with diabetic chronic kidney disease; E11.65 Type 2 diabetes mellitus with hyperglycemia; E78.2 Mixed hyperlipidemia; Z99.2 Dependence on renal dialysis; D64.9 Anemia, unspecified; E87.5 Hyperkalemia; W18.39XA Other fall on same level, initial encounter; Y93.01 Activity, walking, marching and hiking; Y92.239 Unspecified place in hospital as the place of occurrence of the external cause; S09.90XA Unspecified injury of head, initial encounter; S16.1XXA Strain of muscle, fascia and tendon at neck level, initial encounter; B95.1 Streptococcus, group B, as the cause of diseases classified elsewhere; I25.10 Atherosclerotic heart disease of native coronary artery without angina pectoris; Z82.49 Family history of ischemic heart disease and other diseases of the circulatory system; Z82.5 Family history of asthma and other chronic lower respiratory diseases; Z83.3 Family history of diabetes mellitus; Z87.891 Personal history of nicotine dependence; Z91.19 Patient's noncompliance with other medical treatment and regimen; Z95.1 Presence of aortocoronary bypass graft; Z86.14 Personal history of Methicillin resistant Staphylococcus aureus infection; Z87.81 Personal history of (healed) traumatic fracture; Y99.8 Other external cause status
CPT/HCPCS: 36415; 70450; 71045; 72125; 73600; 73610; 73700; 78452; 80048; 80053; 80074; 80202; 82947; 82948; 83036; 83605; 84100; 84145; 85025; 85027; 85610; 85651; 85730; 86140; 87040; 87070; 87076; 87088; 88300; 88304; 90935; 93005; 93017; 93971; 96374; 97039; A9500; G0378; J0330; J0690; J0696; J1100; J1650; J1815; J2001; J2175; J2250; J2270; J2370; J2405; J2543; J2704; J2710; J2785; J2795; J3010; J3370; J3490; J7030; J7040; J7070; J7120

== ENCOUNTER 2018-09-01 10:07 | Day surgery (SDC) | payer OTHER ==
[~2018-09-01] VITALS: Ht 160 cm; Wt 60.4 kg
[~2018-09-01 10:07] MED LIST changes: -DOXE25CA3 PO; -DOXE75CA3 PO; +SEVE800T7 PO
[2018-09-01 10:35] VITALS: BP 143/62
[2018-09-01 10:50] LABS: INR 1.1 (0.85-1.15); PARTIAL THROMBOPLASTIN TIME 32.7 SEC (26.3-35.5); PROTHROMBIN TIME 11.5 SEC (9.6-11.6)
--- NOTE | 2018-09-01 13:32 | NUR ---
PICC ATTEMPTED TO START PICC LINE TO RIGHT UPPER ARM , AFTER MULTIPLE ATTEMPTS UNABLE TO ADVANCE WIRE. PT KAYLA PROCEDURE WITH SOME DISCOMFORS. SMALL BRUISE NOTED TO RIGHT UPPER ARM AFTER ATTEMPT, ALSO ATTEMPTED PIV TO RIGHT ARM . UNSUCCESSFUL. MORA RN ALSO TRIED. REPORTED GIVEN TO DIPESH SANTOS AT [facility]. PT WILL DISCHARGE BACK TO [facility]IVING AND WILL LEAVE TO HEMODIALYSIS FROM HOSPITAL. PT AWAKE AND ALERT , NO DISTRESS NOTED. DENIED ANY PAIN OR DISCOMFORTS.
--- NOTE | 2018-09-01 14:02 | NUR ---
PIV PIV STARTED TO RIGHT HAND, PT KAYLA WELL . PIV FLUSHED WITHOUT COMPLICATIONS , UPDATE REPORT GIVEN TO CINDY SANTOS AT [facility]. PT WAITING ON RIDE TO GO BACK TO [facility].
--- NOTE | 2018-09-01 14:30 | NUR ---
DC PT DC BACK TO [facility] VIA WC , NO DISTRESS NOTED. DENIED ANY PAIN OR DISCOMFORTS.
== END 2018-09-01 14:30 ==
LOC: DAH 10:07
PROVIDERS: ATTEND Internal Medicine
DX: Z45.2 Encounter for adjustment and management of vascular access device (principal); Z53.8 Procedure and treatment not carried out for other reasons; F41.9 Anxiety disorder, unspecified; Z79.01 Long term (current) use of anticoagulants; Z79.899 Other long term (current) drug therapy; Z91.048 Other nonmedicinal substance allergy status; Z87.891 Personal history of nicotine dependence; Z82.49 Family history of ischemic heart disease and other diseases of the circulatory system; Z83.3 Family history of diabetes mellitus; Z95.5 Presence of coronary angioplasty implant and graft
CPT/HCPCS: 36415; 76937; 82948; 85610; 85730; A4606

== ENCOUNTER 2018-09-05 06:19 | Day surgery (SDC) | payer OTHER ==
[2018-09-26] MEDS ORDERED: FAMO-136 PO (13:08)
[2018-09-26] MEDS ORDERED: INSLAN SQ (13:08)
[2018-09-26] MEDS ORDERED: ACET-2900 PO (13:08)
[2018-09-26] MEDS ORDERED: FERR324T12 PO (13:08)
[2018-09-26] MEDS ORDERED: HYDR-3420 PO (13:08)
[2018-09-26] MEDS ORDERED: HONE15GE TP (13:08)
[2018-09-26] MEDS ORDERED: RISP0.5T61 PO (13:08)
== END 2018-09-05 09:30 | disposition home or self-care (01) ==
LOC: DAH 06:19
PROVIDERS: ATTEND Internal Medicine
DX: Z45.2 Encounter for adjustment and management of vascular access device (principal)
CPT/HCPCS: 36569; 71045; A4606; 76937

== ENCOUNTER 2018-09-14 10:28 | Emergency (ER) | payer OTHER ==
[2018-09-14 11:16] LABS: BASOPHILS % (AUTO) 0.4 % (0.0-5.0); EOSINOPHILS % (AUTO) 3.6 % (0.0-8.0); HEMATOCRIT 21.3 % (36-48); LYMPHOCYTES % (AUTO) 11.2 % (21.0-51.0); MEAN CORPUSCULAR VOLUME 87.8 fL (79-99); MONOCYTES % (AUTO) 12.8 % (3.0-13.0); PLATELET COUNT (AUTO) 201 K/uL (130-400); RED BLOOD CELL COUNT(AUTO) 2.43 MIL/uL (4.00-5.50); RED CELL DISTRIBUTION WIDTH 20.6 % (11.0-15.5); WHITE BLOOD COUNT (AUTO) 5.5 K/uL (4.8-10.8)
[2018-09-14 11:36] LABS: CREATININE 3.7 mg/dL (0.5-1.5)
[2018-09-14 11:39] LABS: INR 1.17 (0.85-1.15); PARTIAL THROMBOPLASTIN TIME 31.9 SEC (26.3-35.5); PROTHROMBIN TIME 12.2 SEC (9.6-11.6)
[2018-09-14] MEDS ORDERED: HYDRALAZINE HCL 20 MG/ML VIAL ONE (13:45)
[2018-09-14] MEDS ORDERED: TRAMADOL HCL 50 MG TABLET ONE (13:56)
[2018-09-14 15:05] LABS: BILIRUBIN,URINE Negative (NEGATIVE); COLOR,URINE Dark Yellow (YELLOW); GLUCOSE, URINE (UA) Negative (NEGATIVE); KETONES,URINE Negative (NEGATIVE); LEUKOCYTE ESTERASE ,URINE Moderate (NEGATIVE); NITRATE,URINE Negative (NEGATIVE); OCCULT BLOOD,URINE Moderate (NEGATIVE); PH,URINE 5.5 (5.0-8.0); PROTEIN,URINE >=1000 mg/dL (NEGATIVE)
[2018-09-14 15:16] LABS: APPEARANCE,URINE CLOUDY (CLEAR)
[2018-09-14 15:19] LABS: BACTERIA,URINE Moderate /HPF (None Seen); WBC,URINE 26-50 /HPF (0-1); YEAST,URINE BUDDING Few /HPF (None Seen)
[2018-09-14 15:20] LABS: SQUAMOUS EPITHELIAL CELL,UR Rare /HPF (0-2)
[2018-09-14 15:39] LABS: AMPHET/METH SCREEN,URINE NEGATIVE (NEGATIVE); BARBITURATE SCREEN, URINE NEGATIVE (NEGATIVE); BENZODIAZEPINES SCREEN,URINE NEGATIVE (NEGATIVE); CANNABINOID SCREEN,URINE NEGATIVE (NEGATIVE); COCAINE SCREEN,URINE NEGATIVE (NEGATIVE); OPIATE SCREEN,URINE NEGATIVE (NEGATIVE); PHENCYCLIDINE SCREEN,URINE NEGATIVE (NEGATIVE)
== END 2018-09-14 16:29 | disposition home or self-care (01) ==
LOC: EDH 10:28
DX: L03.116 Cellulitis of left lower limb (principal); R41.82 Altered mental status, unspecified; I13.2 Hypertensive heart and chronic kidney disease with heart failure and with stage 5 chronic kidney disease, or end stage renal disease; E11.22 Type 2 diabetes mellitus with diabetic chronic kidney disease; E11.65 Type 2 diabetes mellitus with hyperglycemia; N18.6 End stage renal disease; I50.9 Heart failure, unspecified; I25.10 Atherosclerotic heart disease of native coronary artery without angina pectoris; E78.5 Hyperlipidemia, unspecified; C69.90 Malignant neoplasm of unspecified site of unspecified eye; I25.2 Old myocardial infarction; Z99.2 Dependence on renal dialysis; Z79.4 Long term (current) use of insulin; Z91.048 Other nonmedicinal substance allergy status; W01.0XXA Fall on same level from slipping, tripping and stumbling without subsequent striking against object, initial encounter; Y93.89 Activity, other specified; Y92.89 Other specified places as the place of occurrence of the external cause; Y99.8 Other external cause status
CPT/HCPCS: 36415; 70450; 71045; 80048; 80305; 81001; 82140; 82550; 84484; 85025; 85610; 85730; 87077; 87088; 87186; 93005; 99285; J0360

== ENCOUNTER 2018-09-16 14:31 | Emergency (ER) | payer OTHER ==
[2018-09-16 14:58] LABS: BASOPHILS % (AUTO) 0.4 % (0.0-5.0); EOSINOPHILS % (AUTO) 3.8 % (0.0-8.0); HEMATOCRIT 23.7 % (36-48); MEAN CORPUSCULAR HEMOGLOBIN 28.9 pg (27.0-33.0); MEAN CORPUSCULAR HGB CONC 32.4 g/dL (32.0-36.0); MEAN CORPUSCULAR VOLUME 89.1 fL (79-99); MONOCYTES % (AUTO) 11.7 % (3.0-13.0); NEUTROPHILS % (AUTO) 75.1 % (40.0-77.0); PLATELET COUNT (AUTO) 202 K/uL (130-400); RED BLOOD CELL COUNT(AUTO) 2.66 MIL/uL (4.00-5.50); RED CELL DISTRIBUTION WIDTH 20.8 % (11.0-15.5)
[2018-09-16 15:05] LABS: CREATININE 3.6 mg/dL (0.5-1.5); POTASSIUM 4.2 mmol/L (3.5-5.1)
[2018-09-16 15:11] LABS: ALBUMIN 2.6 g/dL (3.5-5.0); BILIRUBIN,TOTAL 0.4 mg/dL (0.2-1.0); TOTAL PROTEIN, SERUM 7.4 g/dL (6.0-8.3)
[2018-09-16 15:27] LABS: INR 1.2 (0.85-1.15); PARTIAL THROMBOPLASTIN TIME 29.8 SEC (26.3-35.5); PROTHROMBIN TIME 12.6 SEC (9.6-11.6)
[2018-09-16] MEDS ORDERED: ZOSYN 3.375GM+NS 50ML 50 ML IV ONE (15:56)
[2018-09-16] MEDS ORDERED: SODIUM CHLORIDE 0.9% 500ML 500 ML IV ONE (15:57)
[2018-09-16 16:43] LABS: APPEARANCE,URINE Turbid (CLEAR); BILIRUBIN,URINE Negative (NEGATIVE); COLOR,URINE Dark Yellow (YELLOW); GLUCOSE, URINE (UA) Negative (NEGATIVE); KETONES,URINE Negative (NEGATIVE); LEUKOCYTE ESTERASE ,URINE Large (NEGATIVE); NITRATE,URINE Negative (NEGATIVE); OCCULT BLOOD,URINE Small (NEGATIVE); PROTEIN,URINE >=1000 mg/dL (NEGATIVE); UROBILINOGEN,URINE 0.2 mg/dL (0.2-1.0)
[2018-09-16 16:55] LABS: BACTERIA,URINE Moderate /HPF (None Seen); RBC,URINE 0-1 /HPF (0-1); TRANSITIONAL EPI CELLS,URINE Few /HPF (None Seen); WBC,URINE >100 /HPF (0-1)
== END 2018-09-16 18:52 | disposition home or self-care (01) ==
LOC: EDH 14:31
DX: R40.4 Transient alteration of awareness (principal); N39.0 Urinary tract infection, site not specified; I25.10 Atherosclerotic heart disease of native coronary artery without angina pectoris; I11.0 Hypertensive heart disease with heart failure; E78.5 Hyperlipidemia, unspecified; I25.2 Old myocardial infarction; Z79.4 Long term (current) use of insulin; Z91.048 Other nonmedicinal substance allergy status; Z85.840 Personal history of malignant neoplasm of eye
CPT/HCPCS: 36415; 70450; 71045; 80053; 81001; 84484; 85025; 85610; 85730; 87040 ×2; 87077; 87088; 87186; 87804 ×2; 93005; 96365; 96366; 99285; J2543; J7040

== ENCOUNTER 2019-04-02 20:37 | Emergency (ER) | payer OTHER ==
[~2019-04-02 20:37] MED LIST changes: +ACET-3194 PO; +CINA30TA5 PO; +FAMO-136 PO; +FERR324T12 PO; +HONE15GE TP; +HYDR-3420 PO; +INSLAN SQ; +RISP0.5T61 PO; -ROPI1TAB11 PO; +ROPI1TAB13 PO
[2019-04-02 21:36] LABS: BASOPHILS % (AUTO) 0.2 % (0.0-5.0); EOSINOPHILS % (AUTO) 3.2 % (0.0-8.0); HEMATOCRIT 31.5 % (36-48); LYMPHOCYTES % (AUTO) 6.6 % (21.0-51.0); MEAN CORPUSCULAR HGB CONC 32.4 g/dL (32.0-36.0); MEAN CORPUSCULAR VOLUME 95.7 fL (79-99); MONOCYTES % (AUTO) 11.3 % (3.0-13.0); NEUTROPHILS % (AUTO) 78.2 % (40.0-77.0); PLATELET COUNT (AUTO) 157 K/uL (130-400); RED BLOOD CELL COUNT(AUTO) 3.29 MIL/uL (4.00-5.50); RED CELL DISTRIBUTION WIDTH 15.9 % (11.0-15.5); WHITE BLOOD COUNT (AUTO) 9.4 K/uL (4.8-10.8)
[2019-04-02 21:43] LABS: CREATININE 3.7 mg/dL (0.5-1.5); POTASSIUM 4.1 mmol/L (3.5-5.1)
[2019-04-02 21:48] LABS: ALBUMIN 2.9 g/dL (3.5-5.0); BILIRUBIN,TOTAL 0.5 mg/dL (0.2-1.0)
[2019-04-02 22:45] LABS: ERYTHROCYTE SEDIMENTATION RATE 77 MM/HR (0-30)
== END 2019-04-03 02:38 | disposition home or self-care (01) ==
LOC: EDH 20:37
DX: M46.26 Osteomyelitis of vertebra, lumbar region (principal); E11.621 Type 2 diabetes mellitus with foot ulcer; L97.529 Non-pressure chronic ulcer of other part of left foot with unspecified severity; L97.519 Non-pressure chronic ulcer of other part of right foot with unspecified severity; E11.22 Type 2 diabetes mellitus with diabetic chronic kidney disease; I13.2 Hypertensive heart and chronic kidney disease with heart failure and with stage 5 chronic kidney disease, or end stage renal disease; I50.9 Heart failure, unspecified; N18.6 End stage renal disease; I25.2 Old myocardial infarction; E78.5 Hyperlipidemia, unspecified; I25.10 Atherosclerotic heart disease of native coronary artery without angina pectoris; Z79.4 Long term (current) use of insulin; Z99.2 Dependence on renal dialysis; Z88.8 Allergy status to other drugs, medicaments and biological substances
CPT/HCPCS: 36415; 72131; 80053; 85025; 85651; 87040

== ENCOUNTER 2019-05-28 15:30 | Observation (INO) | payer OTHER ==
[~2019-05-28] VITALS: Ht 160 cm; Wt 57.5 kg
[~2019-05-28 15:30] MED LIST changes: +AMLO-257 PO; -AMLO5TAB9 PO
[2019-05-28] MEDS ORDERED: ONDANSETRON HCL 4 MG/2 ML VIAL ONE ×2 (16:15→22:15)
[2019-05-28 16:43] LABS: BASOPHILS % (AUTO) 0.3 % (0.0-5.0); EOSINOPHILS % (AUTO) 2.4 % (0.0-8.0); LYMPHOCYTES % (AUTO) 12.9 % (21.0-51.0); MEAN CORPUSCULAR HGB CONC 33.1 g/dL (32.0-36.0); MEAN CORPUSCULAR VOLUME 90.7 fL (79-99); MONOCYTES % (AUTO) 6.5 % (3.0-13.0); NEUTROPHILS % (AUTO) 77.4 % (40.0-77.0); PLATELET COUNT (AUTO) 134 K/uL (130-400); RED BLOOD CELL COUNT(AUTO) 3.97 MIL/uL (4.00-5.50); WHITE BLOOD COUNT (AUTO) 6.3 K/uL (4.8-10.8)
[2019-05-28 17:04] LABS: ALBUMIN 3.8 g/dL (3.5-5.0); BILIRUBIN,DIRECT 0.2 mg/dL (0.0-0.3); BILIRUBIN,TOTAL 0.5 mg/dL (0.2-1.0); CREATININE 7.3 mg/dL (0.5-1.5); TOTAL PROTEIN, SERUM 8.1 g/dL (6.0-8.3)
[2019-05-28 17:17] LABS: POTASSIUM 8.1 mmol/L (3.5-5.1)
[2019-05-28 17:25] LABS: B-TYPE NATRIURETIC PEPTIDE 1390 pg/mL (0-100)
[2019-05-28] MEDS ORDERED: SODIUM BICARB 50MEQ 50ML VIAL ONE (17:58)
[2019-05-28] MEDS ORDERED: INSULIN HUMULIN R 100 UNIT/ML 3ML ONE (17:59)
[2019-05-28] MEDS ORDERED: CALCIUM GLUCONATE 1 GM/10 ML VIAL IV ONE (18:00)
[2019-05-28] MEDS ORDERED: ONDANSETRON HCL 4 MG/2 ML VIAL IV PRN (18:45)
[2019-05-28] MEDS ORDERED: DEXTROSE 50%-WATER 50 ML DISP.SYRIN IV PRN (19:15)
[2019-05-28] MEDS ORDERED: GLUCAGON 1MG KIT 1 MG ML IM PRN (19:15)
[2019-05-28 19:52] LABS: CREATININE 7.5 mg/dL (0.5-1.5)
[2019-05-28 19:54] LABS: POTASSIUM 6.6 mmol/L (3.5-5.1)
[2019-05-28] MEDS ORDERED: ACETAMINOPHEN 325 MG TAB PO PRN ×2 (20:15)
[2019-05-28 20:31] LABS: ALBUMIN 3.4 g/dL (3.5-5.0); BILIRUBIN,DIRECT 0.2 mg/dL (0.0-0.3); BILIRUBIN,TOTAL 0.4 mg/dL (0.2-1.0); TOTAL PROTEIN, SERUM 7.3 g/dL (6.0-8.3)
[2019-05-28] MEDS ORDERED: ACETAMINOPHEN 325 MG TAB ONE (20:52)
[2019-05-28] MEDS ORDERED: FAMOTIDINE/PF 20 MG/2 ML VIAL IV SCH (21:00)
[2019-05-28] MEDS ORDERED: LIDOCAINE HCL 1% 20 ML VIAL ONE (22:13)
--- NOTE | 2019-05-29 04:00 | NUR ---
REPORT RECEIVED FROM DARIANA DICKINSON.
[2019-05-29 04:30] VITALS: BP 189/85
--- NOTE | 2019-05-29 04:30 | NUR ---
PT ARRIVED FROM ER. ABLE TO AMBULATE. ROOM AIR. NO DISTRESS NOTED. BRIEF ON. ELEVATED BLOOD PRESSURE. PT TOOK HER HOME MEDS COREG AND LISINOPRIL. GOT DIALYSIS. 2.8 L REMOVED. CLEAR LUNG SOUNDS. AV GRAFT TO LEFT FEMORAL SITE.
[2019-05-29] MEDS: INSULIN HUMULIN R 100 UNIT/ML 3ML SQ SCH ×3 (06:00→11:42)
[2019-05-29] MEDS ORDERED: ROPI1TAB13 PO ×2 (06:04)
[2019-05-29] MEDS ORDERED: AMLO5TAB5 PO ×2 (06:04)
[2019-05-29] MEDS ORDERED: DOXE25CA3 PO ×2 (06:04)
[2019-05-29] MEDS ORDERED: HYDR-3420 PO ×2 (06:04)
[2019-05-29] MEDS ORDERED: RANI150T7 PO ×2 (06:04)
[2019-05-29] MEDS ORDERED: PARO-66 PO ×2 (06:04)
[2019-05-29] MEDS ORDERED: LISI40TA4 PO ×2 (06:04)
[2019-05-29] MEDS ORDERED: CARV25TA PO ×2 (06:04)
[2019-05-29 06:24] LABS: BASOPHILS % (AUTO) 0.7 % (0.0-5.0); EOSINOPHILS % (AUTO) 2.7 % (0.0-8.0); HEMATOCRIT 37.1 % (36-48); LYMPHOCYTES % (AUTO) 15.7 % (21.0-51.0); MEAN CORPUSCULAR HGB CONC 32.9 g/dL (32.0-36.0); MEAN CORPUSCULAR VOLUME 91.4 fL (79-99); NEUTROPHILS % (AUTO) 74.4 % (40.0-77.0); PLATELET COUNT (AUTO) 150 K/uL (130-400); RED BLOOD CELL COUNT(AUTO) 4.06 MIL/uL (4.00-5.50); RED CELL DISTRIBUTION WIDTH 13.2 % (11.0-15.5); WHITE BLOOD COUNT (AUTO) 5.6 K/uL (4.8-10.8)
[2019-05-29 06:44] LABS: INR 1.09 (0.85-1.15); PARTIAL THROMBOPLASTIN TIME 27.2 SEC (26.3-35.5); PROTHROMBIN TIME 11.7 SEC (9.6-11.6)
[2019-05-29 06:45] LABS: B-TYPE NATRIURETIC PEPTIDE 1540 pg/mL (0-100)
[2019-05-29 06:50] LABS: ALBUMIN 4.1 g/dL (3.5-5.0); BILIRUBIN,TOTAL 0.6 mg/dL (0.2-1.0); CREATININE 5.2 mg/dL (0.5-1.5); PHOSPHORUS 5.4 mg/dL (2.5-4.9); POTASSIUM 5.5 mmol/L (3.5-5.1); TOTAL PROTEIN, SERUM 8.7 g/dL (6.0-8.3); TROPONIN I 0.04 ng/mL (0.00-0.06)
[2019-05-29 06:56] VITALS: BP 177/81
--- NOTE | 2019-05-29 06:58 | NUR ---
PT REFUSED HER INSULIN, DUE TO IT BEING REGULAR. STATES SHE TAKES A 70/30 MIX.
[2019-05-29 07:52] VITALS: BP 164/80
[2019-05-29] MEDS ORDERED: INSULIN HUMULIN R 100 UNIT/ML 3ML SQ SCH (11:30)
[2019-05-29 11:40] VITALS: BP 181/84
--- NOTE | 2019-05-29 12:07 | NUR ---
DC PLAN PATIENT ADMITTED FOR FLUID OVERLOAD. DISCHARGING HOME. PENDING COVID 19 RESULTS. CALLED LAB THEY HAVE SAMPLE BUT NOT SENT OUT YET. CALLED US [facility]. CONFIRMED THAT PATIENT IS ASSIGNED TO THEM. LET THEM KNOW OF COVID 19 PENDING RESULTS AND IF THERE WAS ANYTHING THAT NEEDED TO GET DONE FROM OUR END AND IF THEY WERE TAKING PATIENT BACK. SAID THEY ARE NOT DOING ANYTHING DIFFERENT. PATIENT WILL STILL HAVE SAME CHAIR TIME. CARLOS A VERBALIZED UNDERSTANDING THAT PATIENT IS PENDING COVID RESULTS. Addendum: 05/29/19 at 1211 by LOS LEACH RN CM Amended: Links added.
--- NOTE | 2019-05-29 12:20 | NUR ---
INITIAL SW spoke with patient. She states she lives alone. Emergency contact is her sister, Belia Patel, [phone]. No home services but patient states she has a general dentist/owner who helps her. Dialysis: MWF at 2:30pm at [facility]. [employer] provides transportation. DME: BPM, glucometer (uses insulin), wheelchair, walker with seat, cane, nebulizer. Patient states she is able to complete ADL's independently but does not drive. PCP is Dr. Charlie Nichols. Pharmacy is [facility]. DCP is home. Addendum: 05/29/19 at 1225 by JUNIOR VEGA Amended: Links added.
[2019-11-07] MEDS ORDERED: TRAM50TA4 PO (17:08)
[2019-11-07] MEDS ORDERED: TRI115C TP (21:08)
[2019-11-07] MEDS ORDERED: SEVE800T7 PO (21:08)
[2019-11-07] MEDS ORDERED: ACET325T51 PO (21:08)
[2019-11-07] MEDS ORDERED: LISI40TA4 PO (21:08)
[2019-11-07] MEDS ORDERED: PANT20TA PO (21:08)
[2019-11-07] MEDS ORDERED: AMIN30LI28 PO (21:08)
[2019-11-07] MEDS ORDERED: ESCI10TA54 PO (21:08)
[2019-11-07] MEDS ORDERED: DOXY100T2 PO (21:08)
== END 2019-05-29 15:00 | disposition home or self-care (01) ==
LOC: EDH 15:30 → INTOOBSV 18:43 → EDHIP 18:43 → 2DH 05-29 04:24
PROVIDERS: ADMIT Internal Medicine; ATTEND Internal Medicine
DX: I13.2 Hypertensive heart and chronic kidney disease with heart failure and with stage 5 chronic kidney disease, or end stage renal disease (principal); I50.9 Heart failure, unspecified; N18.6 End stage renal disease; E11.22 Type 2 diabetes mellitus with diabetic chronic kidney disease; E87.1 Hypo-osmolality and hyponatremia; E11.65 Type 2 diabetes mellitus with hyperglycemia; E11.51 Type 2 diabetes mellitus with diabetic peripheral angiopathy without gangrene; I25.10 Atherosclerotic heart disease of native coronary artery without angina pectoris; E78.5 Hyperlipidemia, unspecified; K52.9 Noninfective gastroenteritis and colitis, unspecified; D64.9 Anemia, unspecified; Z95.1 Presence of aortocoronary bypass graft; Z85.840 Personal history of malignant neoplasm of eye; Z99.2 Dependence on renal dialysis; Z91.19 Patient's noncompliance with other medical treatment and regimen
CPT/HCPCS: 36415 ×2; 71045; 80048 ×2; 80053; 80076 ×2; 82550 ×2; 82948 ×3; 83690; 83874; 83880 ×2; 84100; 84145; 84484 ×2; 85025 ×2; 85610; 85730; 87633; 87635; 93005; 96372; 99291; G0378 ×7; J0610; J1815 ×2; J2405 ×2; J3490; 90935

== ENCOUNTER 2019-06-08 15:28 | Emergency (ER) | payer OTHER ==
[~2019-06-08 15:28] MED LIST changes: -AEC81 PO; -AMLO-257 PO; +AMLO5TAB5 PO; +CARV25TA PO; -CARV25TA77 PO; -CINA30TA5 PO; +DOXE25CA3 PO; -DOXE50CA4 PO; -FAMO-136 PO; -FERR324T12 PO; -FOLI1TAB61 PO; -HONE15GE TP; -HYDR-3421 PO; -INSLAN SQ; -LIDO5CRE18 TP; -PARO-37 PO; +PARO-66 PO; +RANI150T7 PO; -RISP0.5T61 PO; -SEVE800T7 PO; -TRAM50TA4 PO
[2019-06-08 16:31] LABS: BASOPHILS % (AUTO) 0.3 % (0.0-5.0); EOSINOPHILS % (AUTO) 3.9 % (0.0-8.0); HEMATOCRIT 29.9 % (36-48); LYMPHOCYTES % (AUTO) 14.4 % (21.0-51.0); MEAN CORPUSCULAR HEMOGLOBIN 29.9 pg (27.0-33.0); MEAN CORPUSCULAR HGB CONC 33.4 g/dL (32.0-36.0); MEAN CORPUSCULAR VOLUME 89.5 fL (79-99); MONOCYTES % (AUTO) 9.7 % (3.0-13.0); NEUTROPHILS % (AUTO) 71.4 % (40.0-77.0); PLATELET COUNT (AUTO) 98 K/uL (130-400); RED BLOOD CELL COUNT(AUTO) 3.34 MIL/uL (4.00-5.50); RED CELL DISTRIBUTION WIDTH 13.2 % (11.0-15.5); WHITE BLOOD COUNT (AUTO) 5.9 K/uL (4.8-10.8)
[2019-06-08 16:51] LABS: CREATININE 5.9 mg/dL (0.5-1.5); POTASSIUM 5.5 mmol/L (3.5-5.1)
[2019-06-08] MEDS ORDERED: HYDROCODONE/ACETAMINOPHEN 5/325 MG TAB ONE (17:58)
== END 2019-06-08 18:06 | disposition home or self-care (01) ==
LOC: EDH 15:28
DX: S70.01XA Contusion of right hip, initial encounter (principal); S80.12XA Contusion of left lower leg, initial encounter; K21.9 Gastro-esophageal reflux disease without esophagitis; I25.10 Atherosclerotic heart disease of native coronary artery without angina pectoris; I25.2 Old myocardial infarction; E11.9 Type 2 diabetes mellitus without complications; I10 Essential (primary) hypertension; E78.5 Hyperlipidemia, unspecified; W18.39XA Other fall on same level, initial encounter; Y93.89 Activity, other specified; Y92.89 Other specified places as the place of occurrence of the external cause; Y99.8 Other external cause status
CPT/HCPCS: 36415; 73502; 73590; 80048; 85025; 93005

== ENCOUNTER 2019-08-10 10:38 | Day surgery (SDC) | payer OTHER ==
[2019-08-10 11:39] LABS: BASOPHILS % (AUTO) 0.4 % (0.0-5.0); EOSINOPHILS % (AUTO) 4.4 % (0.0-8.0); HEMATOCRIT 28.4 % (36-48); LYMPHOCYTES % (AUTO) 9.6 % (21.0-51.0); MEAN CORPUSCULAR HGB CONC 32.7 g/dL (32.0-36.0); MEAN CORPUSCULAR VOLUME 91.6 fL (79-99); MONOCYTES % (AUTO) 9.6 % (3.0-13.0); NEUTROPHILS % (AUTO) 75.7 % (40.0-77.0); PLATELET COUNT (AUTO) 143 K/uL (130-400); WHITE BLOOD COUNT (AUTO) 7.3 K/uL (4.8-10.8)
[2019-08-10 11:48] LABS: CREATININE 5.9 mg/dL (0.5-1.5); POTASSIUM 5.2 mmol/L (3.5-5.1)
[2019-08-10 11:51] LABS: INR 1.1 (0.85-1.15); PROTHROMBIN TIME 11.8 SEC (9.6-11.6)
[2019-08-10 11:53] LABS: ALBUMIN 3.3 g/dL (3.5-5.0); BILIRUBIN,TOTAL 0.5 mg/dL (0.2-1.0); TOTAL PROTEIN, SERUM 7.6 g/dL (6.0-8.3)
[2019-08-10] MEDS ORDERED: SODIUM CHLORIDE 0.9% 1000ML 1,000 ML IV ONE (11:59)
--- NOTE | 2019-08-10 13:10 | NUR ---
labor/excavator pt taken to labor/excavator via stretcher by supa palmer. pt in no distress
[2019-08-10] MEDS ORDERED: FENTANYL CITRATE PF 50 MCG/1 ML 2ML VIAL ONE (13:28)
[2019-08-10] MEDS ORDERED: IODIXANOL 320 MG/ML 100 ML VIAL ONE (13:28)
[2019-08-10] MEDS ORDERED: HEPARIN SODIUM 1000UNIT/ML 10ML VIAL ONE (13:28)
[2019-08-10] MEDS ORDERED: LIDOCAINE HCL 1% MDV 50ML VIAL ONE (13:28)
[2019-08-10 15:40] VITALS: BP 170/72
--- NOTE | 2019-08-10 15:40 | NUR ---
POST RECEIVED PT FROM JOURNALISM INTERN , S/ P FISTULOGRAM TO LEFT UPPER THIGH , BRUSING , SWELLING TO SITE DRESSING DRY AND INTACT TO AREA. PT DENIED ANY PAIN OR DISCOMFORTS. CALL LIGHT WITHIN REACH, PT INSTRUCTED TO MAINTAIN BEDREST FOR 30 MIN. PT VERBALIZED UNDERSTANDING. CALL LIGHT WITHIN REACH
[2019-08-10 15:55] VITALS: BP 176/72
--- NOTE | 2019-08-10 16:10 | NUR ---
DC DC INSTRUCTION GIVEN TO PT FRIEND OVER PHONE, INSTRUCTED TO CONTINUE HEMODIALYSIS, TO MAINTAIN HOB AT 45 DEGREES FOR 4 HRS. TO MAINTAIN DRESSING DRY AND INTACT, FOR 72 HRS AND CHANGED PRN. PIV REMOVED, PT AWAKE AND ALERT,DENIED ANY PAIN OR DISCOMFORTS
--- NOTE | 2019-08-10 17:00 | NUR ---
DC PT DC HOME VIA WC ,NO DISTRESS NOTED. PT DENIED ANY PAIN OR DISCOMFORTS. DRESSING TO LEFT UPPER THIGH DRY AND INTACT, PT ACCOMPANIED BY FAMILY FRIEND
== END 2019-08-10 17:00 | disposition home or self-care (01) ==
LOC: DAH 10:38 → CLH 10:38
PROVIDERS: ATTEND Internal Medicine Nephrology
DX: T82.590A Other mechanical complication of surgically created arteriovenous fistula, initial encounter (principal); E11.22 Type 2 diabetes mellitus with diabetic chronic kidney disease; I12.0 Hypertensive chronic kidney disease with stage 5 chronic kidney disease or end stage renal disease; N18.6 End stage renal disease; Z99.2 Dependence on renal dialysis; Y83.8 Other surgical procedures as the cause of abnormal reaction of the patient, or of later complication, without mention of misadventure at the time of the procedure
CPT/HCPCS: 36415; 36905; 80053; 85025; 85610; A4215; A4216; A4221; A4222; A4223 ×3; A4606; A4663; C1725 ×2; C1757 ×2; C1769 ×2; C1894 ×2; J1644 ×2; J3010; J3490; J7030; Q9967

== ENCOUNTER 2019-08-13 16:09 | Inpatient (IN) | payer OTHER ==
[~2019-08-13] VITALS: Ht 160 cm; Wt 68.1 kg
[2019-08-13 17:34] LABS: BASOPHILS % (AUTO) 0.2 % (0.0-5.0); EOSINOPHILS % (AUTO) 5.3 % (0.0-8.0); HEMATOCRIT 27.3 % (36-48); MEAN CORPUSCULAR HEMOGLOBIN 30.2 pg (27.0-33.0); MEAN CORPUSCULAR HGB CONC 32.2 g/dL (32.0-36.0); MEAN CORPUSCULAR VOLUME 93.8 fL (79-99); MONOCYTES % (AUTO) 9.4 % (3.0-13.0); NEUTROPHILS % (AUTO) 71.9 % (40.0-77.0); PLATELET COUNT (AUTO) 150 K/uL (130-400); RED BLOOD CELL COUNT(AUTO) 2.91 MIL/uL (4.00-5.50); RED CELL DISTRIBUTION WIDTH 18.8 % (11.0-15.5); WHITE BLOOD COUNT (AUTO) 5.3 K/uL (4.8-10.8)
[2019-08-13 17:48] LABS: CREATININE 6.5 mg/dL (0.5-1.5); POTASSIUM 5.5 mmol/L (3.5-5.1)
[2019-08-13 17:52] LABS: ALBUMIN 3.2 g/dL (3.5-5.0); BILIRUBIN,TOTAL 0.5 mg/dL (0.2-1.0); TOTAL PROTEIN, SERUM 7.2 g/dL (6.0-8.3)
[2019-08-13 18:01] LABS: INR 1.11 (0.85-1.15); PARTIAL THROMBOPLASTIN TIME 29.2 SEC (26.3-35.5); PROTHROMBIN TIME 11.9 SEC (9.6-11.6)
[2019-08-13] MEDS ORDERED: ALBUTEROL SULFATE 0.083% 2.5 MG/3 ML INH IH ONE (18:34)
[2019-08-13] MEDS ORDERED: SODIUM BICARB 50MEQ 50ML VIAL ONE (18:41)
[2019-08-13] MEDS ORDERED: CALCIUM GLUCONATE 1 GM/10 ML VIAL IV ONE (18:41)
[2019-08-13] MEDS ORDERED: INSULIN HUMULIN R 100 UNIT/ML 3ML ONE (18:42)
[2019-08-13] MEDS ORDERED: MORPHINE SULFATE 2 MG/ML 1ML SYG IV PRN (18:45)
[2019-08-13] MEDS ORDERED: HYDRALAZINE HCL 20 MG/ML VIAL IV PRN (18:45)
[2019-08-13] MEDS ORDERED: LACTULOSE 20 GM/30 ML UDCUP PO PRN (18:45)
[2019-08-13] MEDS ORDERED: ACETAMINOPHEN 325 MG TAB PO PRN ×2 (18:45)
[2019-08-13] MEDS ORDERED: ALPRAZOLAM 0.25 MG TABLET PO PRN (18:45)
[2019-08-13] MEDS: HEPARIN SODIUM 5000UNIT/ML 1ML VIAL SQ SCH (18:45)
[2019-08-13] MEDS ORDERED: ONDANSETRON HCL 4 MG/2 ML VIAL IV PRN (18:45)
[2019-08-13] MEDS: INSULIN HUMULIN R 100 UNIT/ML 3ML SQ SCH (21:00)
[2019-08-13] MEDS ORDERED: FAMOTIDINE 20MG TAB 20 MG TAB ONE (21:28)
[2019-08-13] MEDS ORDERED: HEPARIN SODIUM 5000UNIT/ML 1ML VIAL ONE (21:28)
[2019-08-14 06:14] LABS: BASOPHILS % (AUTO) 0.4 % (0.0-5.0); LYMPHOCYTES % (AUTO) 16.5 % (21.0-51.0); MEAN CORPUSCULAR HEMOGLOBIN 30.9 pg (27.0-33.0); MEAN CORPUSCULAR HGB CONC 32.6 g/dL (32.0-36.0); MEAN CORPUSCULAR VOLUME 94.7 fL (79-99); MONOCYTES % (AUTO) 7.9 % (3.0-13.0); PLATELET COUNT (AUTO) 155 K/uL (130-400); RED BLOOD CELL COUNT(AUTO) 2.85 MIL/uL (4.00-5.50); RED CELL DISTRIBUTION WIDTH 18.8 % (11.0-15.5); WHITE BLOOD COUNT (AUTO) 4.5 K/uL (4.8-10.8)
[2019-08-14 06:23] LABS: CREATININE 6.9 mg/dL (0.5-1.5); POTASSIUM 5.1 mmol/L (3.5-5.1)
[2019-08-14] MEDS: HEPARIN SODIUM 5000UNIT/ML 1ML VIAL SQ SCH ×2 (06:45→18:45)
[2019-08-14] MEDS ORDERED: IPRATROPIUM/ALBUTEROL SULFATE 3 ML SOLUTION IH ONE ×2 (06:50→19:53)
[2019-08-14] MEDS: IPRATROPIUM/ALBUTEROL SULFATE 3 ML SOLUTION IH PRN ×2 (06:54→20:45)
[2019-08-14] MEDS: INSULIN HUMULIN R 100 UNIT/ML 3ML SQ SCH ×4 (07:30→21:00)
[2019-08-14] MEDS ORDERED: FAMOTIDINE 20MG TAB 20 MG TAB ONE (08:15)
[2019-08-14] MEDS ORDERED: HEPARIN SODIUM 5000UNIT/ML 1ML VIAL ONE ×2 (08:15→22:50)
[2019-08-14] MEDS: FAMOTIDINE 20MG TAB 20 MG TAB PO SCH (09:00)
[2019-08-14] MEDS ORDERED: INSULIN HUMULIN R 100 UNIT/ML 3ML ONE ×3 (13:11→22:59)
--- NOTE | 2019-08-14 14:55 | NUR ---
DCP: Home SW spoke with Emergency contact - her sister, Belia Patel, [phone]. Pt lives at home alone,but pt has a briquette machine operator helper who helps her with home management and transport. Pt has dialysis treatments on MWF at 2:30pm at [facility]. [employer] provides transportation. Pt has BPM, glucometer (uses insulin), wheelchair, walker with seat, cane, nebulizer. Patient states she is able to complete ADL's independently but does not drive. PCP is Dr. Charlie Nichols. Pharmacy is [facility]. DCP is home. Addendum: 08/14/19 at 1458 by PERLITA BACK Amended: Links added.
[2019-08-14] MEDS ORDERED: ALPRAZOLAM 0.25 MG TABLET ONE ×2 (15:21→23:15)
[2019-08-14] MEDS ORDERED: LOPERAMIDE HCL 2 MG CAP PO ONE (19:02)
[2019-08-14] MEDS: AMLODIPINE BESYLATE 5 MG TAB PO SCH (21:00)
[2019-08-14] MEDS: CARVEDILOL 25 MG TABLET PO SCH (21:00)
[2019-08-14] MEDS: ROPINIROLE HCL 1 MG TABLET PO SCH (21:00)
[2019-08-14] MEDS: HYDRALAZINE HCL 10 MG TABLET PO SCH (21:00)
[2019-08-14] MEDS ORDERED: AMLODIPINE BESYLATE 5 MG TAB ONE (22:50)
[2019-08-14] MEDS ORDERED: CARVEDILOL 25 MG TABLET PO ONE (23:15)
[2019-08-15] VITALS (7 sets, daily range): BP systolic 140–176; BP diastolic 54–84
[2019-08-15] MEDS: IPRATROPIUM/ALBUTEROL SULFATE 3 ML SOLUTION IH PRN ×2 (06:29→18:46)
[2019-08-15] MEDS: HEPARIN SODIUM 5000UNIT/ML 1ML VIAL SQ SCH ×2 (06:45→18:36)
[2019-08-15] MEDS: INSULIN HUMULIN R 100 UNIT/ML 3ML SQ SCH ×4 (06:46→20:28)
[2019-08-15] MEDS: PAROXETINE HCL 20 MG TABLET PO SCH (08:24)
[2019-08-15] MEDS ORDERED: NON-FORMULARY MEDICATION 1 EACH (Ranitidine HCl 150 MG) PO SCH (09:00)
[2019-08-15] MEDS: POLYETHYLENE GLYCOL 3350 17 GM POWD.PACK PO SCH (09:15)
[2019-08-15] MEDS: LISINOPRIL 40 MG TABLET PO SCH (09:24)
[2019-08-15] MEDS: HYDRALAZINE HCL 10 MG TABLET PO SCH ×4 (09:24→20:26)
[2019-08-15] MEDS: AMLODIPINE BESYLATE 5 MG TAB PO SCH ×2 (09:24→20:27)
[2019-08-15] MEDS: FAMOTIDINE 20MG TAB 20 MG TAB PO SCH (09:24)
[2019-08-15] MEDS: CARVEDILOL 25 MG TABLET PO SCH ×2 (09:24→20:27)
[2019-08-15] MEDS: ROPINIROLE HCL 1 MG TABLET PO SCH ×3 (09:25→20:26)
[2019-08-15] MEDS: DOXEPIN HCL 25 MG CAP PO PRN (09:26)
[2019-08-15] MEDS ORDERED: FOLI1TAB85 PO (11:54)
[2019-08-15] MEDS ORDERED: LORA10TA7 PO (11:54)
[2019-08-15] MEDS ORDERED: TRAM50TA4 PO (11:54)
[2019-08-15] MEDS ORDERED: CINA30TA5 PO (11:55)
--- NOTE | 2019-08-15 17:26 | NUR ---
1708 PATIENT SIGNED IM LETTER, I FAXED IM LETTER TO [phone] AND PLACED IN CHART UNDER CONSENT TAB.
[2019-08-16] MEDS: DOXEPIN HCL 25 MG CAP PO PRN ×2 (00:15→21:45)
[2019-08-16 04:00] VITALS: BP 157/77
[2019-08-16 04:24] LABS: CREATININE 4.5 mg/dL (0.5-1.5); POTASSIUM 4.8 mmol/L (3.5-5.1)
[2019-08-16] MEDS: IPRATROPIUM/ALBUTEROL SULFATE 3 ML SOLUTION IH PRN ×2 (06:29→18:29)
[2019-08-16] MEDS: INSULIN HUMULIN R 100 UNIT/ML 3ML SQ SCH ×4 (06:47→22:18)
[2019-08-16] MEDS: HEPARIN SODIUM 5000UNIT/ML 1ML VIAL SQ SCH ×2 (06:47→17:56)
[2019-08-16 08:00] VITALS: BP 144/77
[2019-08-16] MEDS: FAMOTIDINE 20MG TAB 20 MG TAB PO SCH (08:09)
[2019-08-16] MEDS: CARVEDILOL 25 MG TABLET PO SCH ×2 (08:10→21:45)
[2019-08-16] MEDS: LISINOPRIL 40 MG TABLET PO SCH (08:10)
[2019-08-16] MEDS: AMLODIPINE BESYLATE 5 MG TAB PO SCH ×2 (08:10→21:45)
[2019-08-16] MEDS: PAROXETINE HCL 20 MG TABLET PO SCH (08:10)
[2019-08-16] MEDS: ROPINIROLE HCL 1 MG TABLET PO SCH ×3 (08:10→21:45)
[2019-08-16] MEDS: POLYETHYLENE GLYCOL 3350 17 GM POWD.PACK PO SCH (08:12)
[2019-08-16] MEDS: HYDRALAZINE HCL 10 MG TABLET PO SCH ×4 (08:12→21:46)
[2019-08-16 09:12] LABS: HEPATITIS A ANTIBODY IGM Negative (Negative); HEPATITIS B CORE IGM Negative (Negative); HEPATITIS Bs ANTIGEN SCREEN P Negative (Negative)
[2019-08-16] MEDS ORDERED: IOHEXOL 350 MG/ML 100ML INFUS..BTL IV ONE (10:25)
[2019-08-16 12:00] VITALS: BP 155/70
[2019-08-16] MEDS ORDERED: RENAL DOSE IV SCH (14:30)
[2019-08-16] MEDS: CEFTRIAXONE SODIUM 1 GM IVP SCH (15:00)
[2019-08-16 16:00] VITALS: BP 150/71
[2019-08-16 20:00] VITALS: BP 158/89
[2019-08-17] VITALS: BP 169/84
[2019-08-17 04:00] VITALS: BP 171/73
[2019-08-17] MEDS: INSULIN HUMULIN R 100 UNIT/ML 3ML SQ SCH ×2 (05:59→11:30)
[2019-08-17] MEDS: HEPARIN SODIUM 5000UNIT/ML 1ML VIAL SQ SCH (05:59)
[2019-08-17] MEDS: IPRATROPIUM/ALBUTEROL SULFATE 3 ML SOLUTION IH PRN (06:19)
[2019-08-17 07:00] VITALS: BP 180/92
--- NOTE | 2019-08-17 07:45 | NUR ---
ASSESSMENT ENCOUNTERED PT A&OX3 BUT FORGETFUL, CALM COOPERATIVE AND DOES NOT APPEAR TO BE IN ANY DISTRESS NOR ANY NEURO DEFICITS PRESENT. PT DENIES PAIN, SOB, NAUSEA. PT IS AMBULATORY, GAIT SLOW BUT STEADY WITH WALKER AND STAND BY ASSIST, LLE EDEMA PRESENT, DP/PT PULSES PALPABLE. PT IS NPO PENDING PERMACATH PLACEMENT WITH DIALYSIS AFTER PLACEMENT. CALL LIGHT WITHIN REACH.
[2019-08-17] MEDS: PAROXETINE HCL 20 MG TABLET PO SCH (08:00)
[2019-08-17] MEDS ORDERED: CARVEDILOL 25 MG TABLET PO SCH (09:00)
[2019-08-17] MEDS: ROPINIROLE HCL 1 MG TABLET PO SCH ×2 (09:00→14:33)
[2019-08-17] MEDS ORDERED: LORATADINE 10 MG TABLET PO SCH (09:00)
[2019-08-17] MEDS: POLYETHYLENE GLYCOL 3350 17 GM POWD.PACK PO SCH (09:00)
[2019-08-17] MEDS ORDERED: FOLIC ACID/VITAMIN B COMP W-C 1 CAP TAB PO SCH (09:00)
[2019-08-17] MEDS: HYDRALAZINE HCL 10 MG TABLET PO SCH ×2 (09:00→14:35)
[2019-08-17] MEDS ORDERED: CINACALCET HCL 30 MG TAB PO SCH (09:00)
[2019-08-17] MEDS: FAMOTIDINE 20MG TAB 20 MG TAB PO SCH (09:00)
[2019-08-17 09:15] LABS: INR 1.09 (0.85-1.15); PARTIAL THROMBOPLASTIN TIME 26.9 SEC (26.3-35.5); PROTHROMBIN TIME 11.7 SEC (9.6-11.6)
[2019-08-17] MEDS ORDERED: LIDOCAINE HCL 1% MDV 50ML VIAL ONE (09:15)
[2019-08-17] MEDS ORDERED: IOHEXOL-350 50ML VIAL IV ONE (10:04)
[2019-08-17 10:45] VITALS: BP 160/76
[2019-08-17] MEDS ORDERED: NITROGLYCERIN 0.4 MG SL TAB SL PRN (11:00)
[2019-08-17] MEDS ORDERED: ACETAMINOPHEN 325 MG TAB PO PRN (11:00)
[2019-08-17] MEDS ORDERED: HEPARIN SODIUM 5000UNIT/ML 1ML VIAL IJ PRN ×2 (11:00)
[2019-08-17] MEDS ORDERED: SODIUM CHLORIDE 0.9% 1000ML 1,000 ML IV PRN (11:00)
[2019-08-17] MEDS ORDERED: 0.9% SODIUM CHLORIDE 1000 ML IV BAG IV PRN (11:00)
--- NOTE | 2019-08-17 11:00 | NUR ---
POST PROCEDURE RECEIVED PT IN HIGH CROWLEY'S POSITION, A&OX3, CALM COOPERATIVE AND DOES NOT APPEAR TO BE IN ANY DISTRESS NOR ANY NEURO DEFICITS PRESENT. RT CHEST PERMACATH PRESENT, SITE DRY AND INTACT. HEMODIALYSIS STAFF AT BEDSIDE FOR DIALYSIS TREATMENT. CALL LIGHT WITHIN REACH.
--- NOTE | 2019-08-17 11:26 | NUR ---
CM NOTE/DIALYSIS UPDATED US [facility] MADE AWARE OF NEW PERMACATH PLACED. CLINICAL PACKET FAXED WITH PERMACATH REPORT.
[2019-08-17] MEDS ORDERED: TRAMADOL HCL 50 MG TABLET PO PRN (14:15)
[2019-08-17 14:33] VITALS: BP 160/76
[2019-08-17] MEDS: LISINOPRIL 40 MG TABLET PO SCH (14:33)
[2019-08-17] MEDS: AMLODIPINE BESYLATE 5 MG TAB PO SCH (14:33)
[2019-08-17] MEDS: CEFTRIAXONE SODIUM 1 GM IVP SCH (14:36)
--- NOTE | 2019-08-17 17:46 | NUR ---
DISCHARGE INSTRUCTIONS GIVEN, PIV REMOVED AND INTACT, DISCHARGED HOME TO FAMILY VEHICLE VIA WHEELCHAIR.
== END 2019-08-17 15:05 | disposition home or self-care (01) | DRG 314 ==
LOC: EDH 16:09 → OBSVTOIN 18:40 → EDHIP 18:40 → 4AH 08-15 01:37
PROVIDERS: ADMIT Hospitalist; ATTEND Hospitalist
PROC: 5A1D70Z Performance of Urinary Filtration, Intermittent, Less than 6 Hours Per Day (ICD-10-PCS; 2019-08-14)
PROC: 5A1D70Z Performance of Urinary Filtration, Intermittent, Less than 6 Hours Per Day (ICD-10-PCS; 2019-08-15)
PROC: 0JH63XZ Insertion of Tunneled Vascular Access Device into Chest Subcutaneous Tissue and Fascia, Percutaneous Approach (ICD-10-PCS; principal; 2019-08-17)
PROC: 02H633Z Insertion of Infusion Device into Right Atrium, Percutaneous Approach (ICD-10-PCS; 2019-08-17)
PROC: 5A1D70Z Performance of Urinary Filtration, Intermittent, Less than 6 Hours Per Day (ICD-10-PCS; 2019-08-17)
DX: T82.898A Other specified complication of vascular prosthetic devices, implants and grafts, initial encounter (principal); N18.6 End stage renal disease; I13.2 Hypertensive heart and chronic kidney disease with heart failure and with stage 5 chronic kidney disease, or end stage renal disease; I72.4 Aneurysm of artery of lower extremity; M79.89 Other specified soft tissue disorders; E87.5 Hyperkalemia; E11.22 Type 2 diabetes mellitus with diabetic chronic kidney disease; I25.10 Atherosclerotic heart disease of native coronary artery without angina pectoris; E78.5 Hyperlipidemia, unspecified; I50.9 Heart failure, unspecified; E87.70 Fluid overload, unspecified; R59.9 Enlarged lymph nodes, unspecified; D64.9 Anemia, unspecified; R59.1 Generalized enlarged lymph nodes; Y83.8 Other surgical procedures as the cause of abnormal reaction of the patient, or of later complication, without mention of misadventure at the time of the procedure; Y92.89 Other specified places as the place of occurrence of the external cause; Z99.2 Dependence on renal dialysis; Z85.840 Personal history of malignant neoplasm of eye; Z86.14 Personal history of Methicillin resistant Staphylococcus aureus infection; Z87.891 Personal history of nicotine dependence; Z95.1 Presence of aortocoronary bypass graft; Z91.048 Other nonmedicinal substance allergy status; Z91.19 Patient's noncompliance with other medical treatment and regimen; Z83.6 Family history of other diseases of the respiratory system; Z80.8 Family history of malignant neoplasm of other organs or systems; Z83.3 Family history of diabetes mellitus; Z82.49 Family history of ischemic heart disease and other diseases of the circulatory system
CPT/HCPCS: 36415; 36558; 73706; 74176; 76882; 77001; 80048; 80053; 80074; 82948; 85025; 85610; 85730; 87040; 90935; 93005; 93970; 94640; 94664; 99291; C1750; C1769; G0378; J0610; J0696; J1644; J1815; J3490; Q9967

== ENCOUNTER 2019-08-20 13:00 | Emergency (ER) | payer OTHER ==
[~2019-08-20 13:00] MED LIST changes: -ACET-3194 PO; +CINA30TA5 PO; +FOLI1TAB85 PO; +LORA10TA7 PO; +TRAM50TA4 PO
[2019-08-20] MEDS ORDERED: LIDOCAINE HCL 1% MDV 50ML VIAL ONE (13:14)
== END 2019-08-20 13:46 | disposition home or self-care (01) ==
LOC: EDH 13:00
DX: T82.838A Hemorrhage due to vascular prosthetic devices, implants and grafts, initial encounter (principal); I25.10 Atherosclerotic heart disease of native coronary artery without angina pectoris; E11.9 Type 2 diabetes mellitus without complications; I10 Essential (primary) hypertension; E78.5 Hyperlipidemia, unspecified; I50.9 Heart failure, unspecified; I25.2 Old myocardial infarction; Z72.0 Tobacco use
CPT/HCPCS: 99281; J3490

== ENCOUNTER 2019-10-05 07:16 | Observation (INO) | payer OTHER ==
[~2019-10-05] VITALS: Ht 162.6 cm; Wt 63.7 kg
[2019-10-05] MEDS ORDERED: LIDOCAINE HCL 1% 20 ML VIAL ONE (07:49)
[2019-10-05 09:13] LABS: BASOPHILS % (AUTO) 0.5 % (0.0-5.0); EOSINOPHILS % (AUTO) 4.5 % (0.0-8.0); HEMATOCRIT 32.5 % (36-48); LYMPHOCYTES % (AUTO) 10.3 % (21.0-51.0); MEAN CORPUSCULAR HEMOGLOBIN 29.5 pg (27.0-33.0); MEAN CORPUSCULAR HGB CONC 32.3 g/dL (32.0-36.0); MEAN CORPUSCULAR VOLUME 91.3 fL (79-99); NEUTROPHILS % (AUTO) 75.4 % (40.0-77.0); PLATELET COUNT (AUTO) 123 K/uL (130-400); RED BLOOD CELL COUNT(AUTO) 3.56 MIL/uL (4.00-5.50); RED CELL DISTRIBUTION WIDTH 16.7 % (11.0-15.5); WHITE BLOOD COUNT (AUTO) 6.2 K/uL (4.8-10.8)
[2019-10-05 09:25] LABS: INR 1.12 (0.85-1.15); PARTIAL THROMBOPLASTIN TIME 30.5 SEC (26.3-35.5)
[2019-10-05 09:29] LABS: ALBUMIN 3.4 g/dL (3.5-5.0); BILIRUBIN,TOTAL 0.4 mg/dL (0.2-1.0); CREATININE 5.6 mg/dL (0.5-1.5); POTASSIUM 5.1 mmol/L (3.5-5.1); TOTAL PROTEIN, SERUM 7.2 g/dL (6.0-8.3)
[2019-10-05] MEDS ORDERED: IBUPROFEN 400 MG TABLET ONE (10:52)
[2019-10-05] MEDS ORDERED: LABETALOL HCL 5 MG/ML 20ML VIAL IV ONE (12:19)
[2019-10-05] MEDS ORDERED: ONDANSETRON HCL 4 MG/2 ML VIAL IV PRN (12:30)
[2019-10-05] MEDS ORDERED: LACTULOSE 20 GM/30 ML UDCUP PO PRN (12:30)
[2019-10-05] MEDS ORDERED: ACETAMINOPHEN 325 MG TAB PO PRN ×2 (12:30)
[2019-10-05 13:45] LABS: CHOLESTEROL 131 mg/dL (<200); HDL CHOLESTEROL 96 mg/dL (35-85); HEMOGLOBIN A1C 9.4 % (4.0-6.0); LDL DIRECT 66 mg/dL (0-99); TRIGLYCERIDES 62 mg/dL (30-200)
[2019-10-05] MEDS: CEFTRIAXONE SODIUM 1 GM IVP SCH (15:15)
[2019-10-05] MEDS ORDERED: HYDRALAZINE HCL 25 MG TABLET ONE (15:24)
[2019-10-05] MEDS ORDERED: AMLODIPINE BESYLATE 5 MG TAB ONE (15:25)
[2019-10-05] MEDS ORDERED: CEFTRIAXONE SODIUM 1 GM ONE (15:25)
[2019-10-05] MEDS ORDERED: LISINOPRIL 5 MG TABLET ONE (15:25)
[2019-10-05] MEDS ORDERED: AMLODIPINE BESYLATE 5 MG TAB PO SCH (16:00)
[2019-10-05] MEDS ORDERED: LISINOPRIL 20 MG TABLET PO SCH (16:00)
[2019-10-05] MEDS ORDERED: HYDRALAZINE HCL 25 MG TABLET PO SCH (16:00)
[2019-10-05] MEDS: METOPROLOL TARTRATE 25 MG TAB PO SCH (21:00)
[2019-10-05] MEDS: ATORVASTATIN CALCIUM 20 MG TABLET PO SCH (21:00)
[2019-10-05] MEDS ORDERED: HEPARIN SODIUM 5000UNIT/ML 1ML VIAL ONE (21:23)
[2019-10-05] MEDS ORDERED: METOPROLOL TARTRATE 25 MG TAB ONE (23:01)
[2019-10-05] MEDS ORDERED: ATORVASTATIN CALCIUM 20 MG TABLET ONE (23:01)
[2019-10-06] VITALS (7 sets, daily range): BP systolic 105–179; BP diastolic 59–82
[2019-10-06] MEDS ORDERED: HYDRALAZINE HCL 20 MG/ML VIAL ONE (00:52)
[2019-10-06 07:21] LABS: BASOPHILS % (AUTO) 0.2 % (0.0-5.0); EOSINOPHILS % (AUTO) 4.3 % (0.0-8.0); HEMATOCRIT 28.2 % (36-48); MEAN CORPUSCULAR HEMOGLOBIN 29.8 pg (27.0-33.0); MEAN CORPUSCULAR HGB CONC 32.6 g/dL (32.0-36.0); MEAN CORPUSCULAR VOLUME 91.3 fL (79-99); MONOCYTES % (AUTO) 7.9 % (3.0-13.0); NEUTROPHILS % (AUTO) 78.2 % (40.0-77.0); PLATELET COUNT (AUTO) 118 K/uL (130-400); RED BLOOD CELL COUNT(AUTO) 3.09 MIL/uL (4.00-5.50); RED CELL DISTRIBUTION WIDTH 16.8 % (11.0-15.5); WHITE BLOOD COUNT (AUTO) 5.3 K/uL (4.8-10.8)
[2019-10-06 07:44] LABS: CREATININE 4.6 mg/dL (0.5-1.5); POTASSIUM 4.4 mmol/L (3.5-5.1)
[2019-10-06 08:17] LABS: INR 1.11 (0.85-1.15); PARTIAL THROMBOPLASTIN TIME 30.8 SEC (26.3-35.5); PROTHROMBIN TIME 11.9 SEC (9.6-11.6)
[2019-10-06] MEDS: METOPROLOL TARTRATE 25 MG TAB PO SCH ×2 (09:40→21:09)
[2019-10-06] MEDS: ASPIRIN 81MG TAB.CHEW PO SCH (09:40)
[2019-10-06] MEDS: FAMOTIDINE 20MG TAB 20 MG TAB PO SCH (09:40)
[2019-10-06] MEDS ORDERED: DEXTROSE 50%-WATER 50 ML DISP.SYRIN IV PRN (11:00)
[2019-10-06] MEDS ORDERED: GLUCAGON 1MG KIT 1 MG ML IM PRN (11:00)
[2019-10-06] MEDS: INSULIN HUMULIN R 100 UNIT/ML 3ML SQ SCH ×3 (11:58→21:28)
[2019-10-06] MEDS: HYDRALAZINE HCL 20 MG/ML VIAL IV PRN ×2 (12:02→21:15)
--- NOTE | 2019-10-06 15:24 | NUR ---
INITIAL SW spoke with patient. Patient lives alone. She has no home services but receives assistance from private pay provider/product support representative. Dialysis: MWF at 2:30pm at [facility] in [place]. DME: BPM, glucometer (uses insulin), rollator, shower chair, nebulizer. Patient is able to complete ADL's but does not drive at this time. PCP is Dr. Simone Guerra. Pharmacy is [email or web address]. DCP is home. Addendum: 10/06/19 at 1526 by JUNIOR VEGA SS Amended: Links added.
[2019-10-06] MEDS: CEFTRIAXONE SODIUM 1 GM IVP SCH (16:41)
[2019-10-06] MEDS ORDERED: DOXEPIN HCL 25 MG CAP PO PRN (17:45)
[2019-10-06] MEDS: ATORVASTATIN CALCIUM 20 MG TABLET PO SCH (21:09)
[2019-10-06] MEDS: MORPHINE SULFATE 2 MG/ML 1ML SYG IV PRN (21:14)
[2019-10-07] MEDS: MORPHINE SULFATE 2 MG/ML 1ML SYG IV PRN (03:11)
[2019-10-07 03:29] VITALS: BP 150/66
[2019-10-07] MEDS: INSULIN HUMULIN R 100 UNIT/ML 3ML SQ SCH ×2 (06:20→11:55)
[2019-10-07 08:00] VITALS: BP 160/78
[2019-10-07] MEDS ORDERED: PAROXETINE HCL 20 MG TABLET PO SCH (08:00)
[2019-10-07] MEDS ORDERED: LORATADINE 10 MG TABLET PO SCH (09:00)
[2019-10-07] MEDS: FAMOTIDINE 20MG TAB 20 MG TAB PO SCH (09:24)
[2019-10-07] MEDS: METOPROLOL TARTRATE 25 MG TAB PO SCH (09:24)
[2019-10-07] MEDS: ASPIRIN 81MG TAB.CHEW PO SCH (09:24)
[2019-10-07 11:00] VITALS: BP 137/74
[2019-10-08 21:07] LABS: HEPATITIS A ANTIBODY IGM Negative (Negative); HEPATITIS B CORE IGM Negative (Negative); HEPATITIS Bs ANTIGEN SCREEN P Negative (Negative)
[2019-11-07] MEDS ORDERED: TRAM50TA4 PO (17:08)
[2019-11-07] MEDS ORDERED: ACET325T51 PO (21:08)
[2019-11-07] MEDS ORDERED: LISI40TA4 PO (21:08)
[2019-11-07] MEDS ORDERED: SEVE800T7 PO (21:08)
[2019-11-07] MEDS ORDERED: ESCI10TA54 PO (21:08)
[2019-11-07] MEDS ORDERED: PANT20TA PO (21:08)
[2019-11-07] MEDS ORDERED: AMIN30LI28 PO (21:08)
[2019-11-07] MEDS ORDERED: DOXY100T2 PO (21:08)
[2019-11-07] MEDS ORDERED: TRI115C TP (21:08)
== END 2019-10-07 14:15 | disposition home or self-care (01) ==
LOC: EDH 07:16 → EDHIP 12:28 → 3AH 10-06 01:15
PROVIDERS: ADMIT Internal Medicine; ATTEND Internal Medicine
DX: S01.81XA Laceration without foreign body of other part of head, initial encounter (principal); S70.11XA Contusion of right thigh, initial encounter; S80.01XA Contusion of right knee, initial encounter; I13.2 Hypertensive heart and chronic kidney disease with heart failure and with stage 5 chronic kidney disease, or end stage renal disease; E11.22 Type 2 diabetes mellitus with diabetic chronic kidney disease; I50.9 Heart failure, unspecified; N18.6 End stage renal disease; J44.9 Chronic obstructive pulmonary disease, unspecified; I25.10 Atherosclerotic heart disease of native coronary artery without angina pectoris; R22.31 Localized swelling, mass and lump, right upper limb; Z79.4 Long term (current) use of insulin; Z87.891 Personal history of nicotine dependence; Z95.1 Presence of aortocoronary bypass graft; Z99.2 Dependence on renal dialysis; W18.39XA Other fall on same level, initial encounter; Y93.89 Activity, other specified; Y92.89 Other specified places as the place of occurrence of the external cause; Y99.8 Other external cause status
CPT/HCPCS: 12052; 36415 ×2; 70450; 71045; 72125; 73562; 80048; 80053; 80061; 80074; 82550; 82948 ×6; 83036; 84484 ×4; 85025 ×2; 85610 ×2; 85730 ×2; 93005 ×4; 93971; 96374; 96375; 96376 ×2; 97039 ×3; 97116 ×2; 97161; 99285; A4510 ×2; G0378 ×13; G8978; G8979; G8980; G8981; G8982; G8983; J0360 ×3; J0696 ×2; J1644; J1815 ×3; J3490; 12032; 90935; 96372

== ENCOUNTER 2019-10-19 06:59 | Emergency (ER) | payer OTHER ==
[~2019-10-19 06:59] MED LIST changes: -TRAM50TA4 PO
[2019-10-19 07:34] LABS: BASOPHILS % (AUTO) 0.2 % (0.0-5.0); EOSINOPHILS % (AUTO) 4.3 % (0.0-8.0); HEMATOCRIT 26.7 % (36-48); LYMPHOCYTES % (AUTO) 11.2 % (21.0-51.0); MEAN CORPUSCULAR HEMOGLOBIN 29.7 pg (27.0-33.0); MEAN CORPUSCULAR HGB CONC 31.8 g/dL (32.0-36.0); MEAN CORPUSCULAR VOLUME 93.4 fL (79-99); MONOCYTES % (AUTO) 9.5 % (3.0-13.0); NEUTROPHILS % (AUTO) 74.5 % (40.0-77.0); PLATELET COUNT (AUTO) 182 K/uL (130-400); RED BLOOD CELL COUNT(AUTO) 2.86 MIL/uL (4.00-5.50); RED CELL DISTRIBUTION WIDTH 19.2 % (11.0-15.5); WHITE BLOOD COUNT (AUTO) 5.8 K/uL (4.8-10.8)
[2019-10-19 07:50] LABS: ALBUMIN 3.3 g/dL (3.5-5.0); BILIRUBIN,TOTAL 0.6 mg/dL (0.2-1.0); CREATININE 6.1 mg/dL (0.5-1.5); POTASSIUM 5.1 mmol/L (3.5-5.1); TOTAL PROTEIN, SERUM 7.7 g/dL (6.0-8.3)
[2019-10-19] MEDS ORDERED: IBUPROFEN 600 MG TABLET ONE (08:06)
== END 2019-10-19 10:06 | disposition home or self-care (01) ==
LOC: EDH 06:59
DX: S01.81XA Laceration without foreign body of other part of head, initial encounter (principal); M25.561 Pain in right knee; M79.89 Other specified soft tissue disorders; I12.0 Hypertensive chronic kidney disease with stage 5 chronic kidney disease or end stage renal disease; E11.22 Type 2 diabetes mellitus with diabetic chronic kidney disease; N18.6 End stage renal disease; E78.5 Hyperlipidemia, unspecified; I25.10 Atherosclerotic heart disease of native coronary artery without angina pectoris; Z91.048 Other nonmedicinal substance allergy status; I25.2 Old myocardial infarction; I50.9 Heart failure, unspecified; W18.39XA Other fall on same level, initial encounter; Y93.01 Activity, walking, marching and hiking; Y92.89 Other specified places as the place of occurrence of the external cause; Y99.8 Other external cause status
CPT/HCPCS: 12011; 36415; 70450; 70486; 73562; 80053; 85025; 93005

== ENCOUNTER 2020-01-24 19:04 | Emergency (ER) | payer OTHER ==
[~2020-01-24 19:04] MED LIST changes: +ACET325T51 PO; +AMIN30LI28 PO; +ESCI10TA54 PO; -FOLI1TAB85 PO; +ONDA4FIL5 PO; +PANT20TA PO; -RANI150T7 PO; +SEVE800T7 PO; +TRAM50TA4 PO; +TRI115C TP
[2020-01-24 19:20] LABS: BASOPHILS % (AUTO) 0.3 % (0.0-5.0); EOSINOPHILS % (AUTO) 6.1 % (0.0-8.0); HEMATOCRIT 28.7 % (36-48); LYMPHOCYTES % (AUTO) 9.1 % (21.0-51.0); MEAN CORPUSCULAR HEMOGLOBIN 30.4 pg (27.0-33.0); MONOCYTES % (AUTO) 12.3 % (3.0-13.0); NEUTROPHILS % (AUTO) 71.6 % (40.0-77.0); PLATELET COUNT (AUTO) 139 K/uL (130-400); RED BLOOD CELL COUNT(AUTO) 2.93 MIL/uL (4.00-5.50); RED CELL DISTRIBUTION WIDTH 23.9 % (11.0-15.5)
[2020-01-24 19:28] LABS: POTASSIUM 3.3 mmol/L (3.5-5.1)
[2020-01-24 19:33] LABS: ALBUMIN 2.4 g/dL (3.5-5.0); BILIRUBIN,TOTAL 0.9 mg/dL (0.2-1.0)
== END 2020-01-24 21:48 | disposition home or self-care (01) ==
LOC: EDH 19:04
DX: S00.83XA Contusion of other part of head, initial encounter (principal); I25.10 Atherosclerotic heart disease of native coronary artery without angina pectoris; J44.9 Chronic obstructive pulmonary disease, unspecified; I25.2 Old myocardial infarction; E78.5 Hyperlipidemia, unspecified; I10 Essential (primary) hypertension; Z91.048 Other nonmedicinal substance allergy status; W05.0XXA Fall from non-moving wheelchair, initial encounter; Y93.89 Activity, other specified; Y92.89 Other specified places as the place of occurrence of the external cause; Y99.8 Other external cause status
CPT/HCPCS: 36415; 70450; 80053; 84484; 85025; 93005

== ENCOUNTER 2020-02-12 16:35 | Inpatient (IN) | payer OTHER ==
[~2020-02-12] VITALS: Ht 162.6 cm; Wt 62.5 kg
[~2020-02-12 16:35] MED LIST changes: +ESCI-8 PO; -ESCI10TA54 PO; -LISI40TA4 PO; +LISI40TA9 PO
[2020-02-12 18:04] LABS: BASOPHILS % (AUTO) 0.5 % (0.0-5.0); EOSINOPHILS % (AUTO) 3.9 % (0.0-8.0); HEMATOCRIT 24.3 % (36-48); LYMPHOCYTES % (AUTO) 12.1 % (21.0-51.0); MEAN CORPUSCULAR HEMOGLOBIN 31.2 pg (27.0-33.0); MEAN CORPUSCULAR HGB CONC 32.1 g/dL (32.0-36.0); MEAN CORPUSCULAR VOLUME 97.2 fL (79-99); MONOCYTES % (AUTO) 12.7 % (3.0-13.0); NEUTROPHILS % (AUTO) 70.4 % (40.0-77.0); PLATELET COUNT (AUTO) 127 K/uL (130-400); RED CELL DISTRIBUTION WIDTH 18.7 % (11.0-15.5); WHITE BLOOD COUNT (AUTO) 5.7 K/uL (4.8-10.8)
[2020-02-12 18:33] LABS: B-TYPE NATRIURETIC PEPTIDE 617 pg/mL (0-100)
[2020-02-12 18:36] LABS: CREATININE 4.5 mg/dL (0.5-1.5); POTASSIUM 3.7 mmol/L (3.5-5.1)
[2020-02-12 18:40] LABS: ALBUMIN 2.2 g/dL (3.5-5.0); BILIRUBIN,TOTAL 0.7 mg/dL (0.2-1.0); TOTAL PROTEIN, SERUM 6.9 g/dL (6.0-8.3)
[2020-02-12] MEDS ORDERED: MORPHINE 2 MG SYG ONE (23:09)
[2020-02-12] MEDS ORDERED: ONDANSETRON 4MG INJ ONE (23:13)
[2020-02-13] MEDS ORDERED: DEXTROSE 50%-WATER 50 ML DISP.SYRIN IV PRN (02:00)
[2020-02-13] MEDS ORDERED: GLUCAGON 1MG KIT 1 MG ML IM PRN (02:00)
[2020-02-13] MEDS: INSULIN HUMULIN R 100 UNIT/ML 3ML SQ SCH ×4 (07:30→21:00)
[2020-02-13 09:22] LABS: BASOPHILS % (AUTO) 0.3 % (0.0-5.0); EOSINOPHILS % (AUTO) 3.2 % (0.0-8.0); LYMPHOCYTES % (AUTO) 9.9 % (21.0-51.0); MEAN CORPUSCULAR HEMOGLOBIN 31.3 pg (27.0-33.0); MEAN CORPUSCULAR HGB CONC 32.5 g/dL (32.0-36.0); MEAN CORPUSCULAR VOLUME 96.4 fL (79-99); MONOCYTES % (AUTO) 11.2 % (3.0-13.0); NEUTROPHILS % (AUTO) 75.1 % (40.0-77.0); PLATELET COUNT (AUTO) 146 K/uL (130-400); RED BLOOD CELL COUNT(AUTO) 2.49 MIL/uL (4.00-5.50); RED CELL DISTRIBUTION WIDTH 18.6 % (11.0-15.5); WHITE BLOOD COUNT (AUTO) 5.9 K/uL (4.8-10.8)
[2020-02-13 09:31] LABS: HEMOGLOBIN A1C 4.6 % (4.0-6.0)
[2020-02-13 09:38] LABS: ALBUMIN 2.3 g/dL (3.5-5.0); BILIRUBIN,TOTAL 0.8 mg/dL (0.2-1.0); POTASSIUM 3.7 mmol/L (3.5-5.1); TOTAL PROTEIN, SERUM 7.2 g/dL (6.0-8.3)
[2020-02-13 09:53] VITALS: BP 131/63
[2020-02-13] MEDS: FAMOTIDINE 20MG VIAL IV SCH ×2 (10:08→21:00)
[2020-02-13] MEDS ORDERED: EPOETIN ALFA 10,000 UNIT/ML VIAL SQ SCH (15:30)
[2020-02-13] MEDS ORDERED: EPOETIN ALFA-EPBX (ESRD) 10,000 UNIT/ML VIAL SQ SCH (16:45)
[2020-02-13] MEDS ORDERED: HEPARIN 5,000 UNIT VIAL ONE (16:56)
[2020-02-13] MEDS ORDERED: HEPARIN 5,000 UNIT VIAL IJ PRN (17:45)
[2020-02-13] MEDS ORDERED: 0.9%NACL 1000ML 1,000 ML IV PRN (17:45)
[2020-02-13] MEDS ORDERED: 0.9%NACL 1000ML IV PRN (17:45)
[2020-02-13] MEDS ORDERED: ACETAMINOPHEN 325 MG TAB PO PRN (17:45)
[2020-02-13] MEDS ORDERED: SEVE800T27 PO (19:38)
[2020-02-13] MEDS ORDERED: AMOX-426 PO (19:38)
[2020-02-13] MEDS ORDERED: ROPI1TAB13 PO (19:38)
[2020-02-13] MEDS ORDERED: DOXE50CA4 PO (19:38)
[2020-02-13] MEDS ORDERED: CLOP100P MC (19:38)
[2020-02-13 20:00] VITALS: BP 105/76
[2020-02-13 23:54] VITALS: BP 117/50
[2020-02-14] MEDS: CEFTRIAXONE 1G VIAL IVP SCH ×2 (01:13→12:38)
[2020-02-14] MEDS ORDERED: DIPHENOXYLATE HCL/ATROPINE 2.5/0.025 MG TAB PO ONE (01:45)
[2020-02-14 02:17] LABS: BASOPHILS % (AUTO) 0.2 % (0.0-5.0); EOSINOPHILS % (AUTO) 2.2 % (0.0-8.0); HEMATOCRIT 24.2 % (36-48); LYMPHOCYTES % (AUTO) 8.6 % (21.0-51.0); MEAN CORPUSCULAR HEMOGLOBIN 30.6 pg (27.0-33.0); MEAN CORPUSCULAR HGB CONC 31.4 g/dL (32.0-36.0); MEAN CORPUSCULAR VOLUME 97.6 fL (79-99); MONOCYTES % (AUTO) 11.7 % (3.0-13.0); PLATELET COUNT (AUTO) 136 K/uL (130-400); RED BLOOD CELL COUNT(AUTO) 2.48 MIL/uL (4.00-5.50); RED CELL DISTRIBUTION WIDTH 18.7 % (11.0-15.5); WHITE BLOOD COUNT (AUTO) 6.5 K/uL (4.8-10.8)
[2020-02-14 02:37] LABS: ALBUMIN 2.1 g/dL (3.5-5.0); BILIRUBIN,TOTAL 0.8 mg/dL (0.2-1.0); CREATININE 3.5 mg/dL (0.5-1.5); MAGNESIUM 2.7 mg/dL (1.80-2.40); PHOSPHORUS 3.6 mg/dL (2.5-4.9); POTASSIUM 3.2 mmol/L (3.5-5.1); THYROID STIMULATING HORMONE 2.36 uIU/mL (0.36-3.74); TOTAL PROTEIN, SERUM 6.9 g/dL (6.0-8.3)
[2020-02-14] MEDS ORDERED: 0.9% NACL 500ML IV.SOLN 500 ML IV SCH (03:00)
[2020-02-14 04:22] VITALS: BP 142/72
[2020-02-14 06:12] LABS: HEPATITIS A ANTIBODY IGM Negative (Negative); HEPATITIS B CORE IGM Negative (Negative); HEPATITIS Bs ANTIGEN SCREEN P Negative (Negative)
[2020-02-14] MEDS: INSULIN HUMULIN R 100 UNIT/ML 3ML SQ SCH ×4 (06:30→21:00)
[2020-02-14] MEDS: FAMOTIDINE 20MG VIAL IV SCH ×2 (08:44→21:15)
[2020-02-14] MEDS ORDERED: MIDAZOLAM HCL 1 MG/ML 2ML VIAL ONE ×2 (10:09→10:36)
[2020-02-14] MEDS ORDERED: PHENYLEPHRINE HCL 10 MG/ML 1ML VIAL IV ONE ×2 (11:12→11:16)
[2020-02-14 12:00] VITALS: BP 179/85
[2020-02-14 19:10] VITALS: BP 195/86
[2020-02-14] MEDS: NEOMY SULF/BACITRA/POLYMYXIN B 1 EACH PACKET TP SCH (21:15)
[2020-02-14] MEDS ORDERED: LORAZEPAM 2 MG/ML 1 ML VIAL IVP PRN (22:45)
[2020-02-14 23:06] VITALS: BP 184/84
[2020-02-15] MEDS: CEFTRIAXONE 1G VIAL IVP SCH ×3 (00:12→23:25)
[2020-02-15 02:06] VITALS: BP 162/81
[2020-02-15 02:57] VITALS: BP 176/80
[2020-02-15 06:59] LABS: BASOPHILS % (AUTO) 0.3 % (0.0-5.0); EOSINOPHILS % (AUTO) 2.3 % (0.0-8.0); HEMATOCRIT 29.4 % (36-48); LYMPHOCYTES % (AUTO) 8.3 % (21.0-51.0); MEAN CORPUSCULAR HEMOGLOBIN 30.5 pg (27.0-33.0); MEAN CORPUSCULAR VOLUME 95.5 fL (79-99); MONOCYTES % (AUTO) 10.9 % (3.0-13.0); NEUTROPHILS % (AUTO) 77.7 % (40.0-77.0); PLATELET COUNT (AUTO) 191 K/uL (130-400); RED BLOOD CELL COUNT(AUTO) 3.08 MIL/uL (4.00-5.50); RED CELL DISTRIBUTION WIDTH 18.1 % (11.0-15.5)
[2020-02-15 07:24] LABS: ALBUMIN 2.3 g/dL (3.5-5.0); BILIRUBIN,TOTAL 0.8 mg/dL (0.2-1.0); CREATININE 2.9 mg/dL (0.5-1.5); PHOSPHORUS 4.3 mg/dL (2.5-4.9); POTASSIUM 3.6 mmol/L (3.5-5.1); TOTAL PROTEIN, SERUM 7.8 g/dL (6.0-8.3)
[2020-02-15] MEDS: INSULIN HUMULIN R 100 UNIT/ML 3ML SQ SCH ×4 (07:30→20:32)
[2020-02-15] MEDS: NEOMY SULF/BACITRA/POLYMYXIN B 1 EACH PACKET TP SCH ×3 (08:37→20:54)
[2020-02-15] MEDS: FAMOTIDINE 20MG VIAL IV SCH ×2 (11:21→20:45)
[2020-02-15] MEDS: AMLODIPINE 5 MG TAB PO SCH (17:01)
[2020-02-15] MEDS: PAROXETINE HCL 20 MG TABLET PO SCH (17:01)
[2020-02-15 19:25] VITALS: BP 150/76
[2020-02-15] MEDS: DOXEPIN HCL 25 MG CAP PO SCH (20:45)
[2020-02-15] MEDS ORDERED: PHARMACY COMMUNICATION MISC SCH (21:00)
[2020-02-15 23:31] VITALS: BP 143/61
[2020-02-16 03:19] VITALS: BP 143/70
[2020-02-16 05:30] LABS: BASOPHILS % (AUTO) 0.2 % (0.0-5.0); EOSINOPHILS % (AUTO) 4.1 % (0.0-8.0); HEMATOCRIT 25.4 % (36-48); LYMPHOCYTES % (AUTO) 8.8 % (21.0-51.0); MEAN CORPUSCULAR HEMOGLOBIN 30.3 pg (27.0-33.0); MEAN CORPUSCULAR HGB CONC 31.9 g/dL (32.0-36.0); MEAN CORPUSCULAR VOLUME 95.1 fL (79-99); MONOCYTES % (AUTO) 12.2 % (3.0-13.0); NEUTROPHILS % (AUTO) 74.3 % (40.0-77.0); PLATELET COUNT (AUTO) 183 K/uL (130-400); RED BLOOD CELL COUNT(AUTO) 2.67 MIL/uL (4.00-5.50); WHITE BLOOD COUNT (AUTO) 8.3 K/uL (4.8-10.8)
[2020-02-16 06:01] LABS: ALBUMIN 2.2 g/dL (3.5-5.0); BILIRUBIN,TOTAL 0.8 mg/dL (0.2-1.0); CREATININE 4.1 mg/dL (0.5-1.5); PHOSPHORUS 4.7 mg/dL (2.5-4.9); POTASSIUM 3.8 mmol/L (3.5-5.1); TOTAL PROTEIN, SERUM 7.3 g/dL (6.0-8.3)
[2020-02-16] MEDS: INSULIN HUMULIN R 100 UNIT/ML 3ML SQ SCH ×4 (06:39→19:52)
[2020-02-16 08:19] VITALS: BP 141/69
[2020-02-16] MEDS: FAMOTIDINE 20MG VIAL IV SCH ×2 (08:28→19:49)
[2020-02-16] MEDS: PAROXETINE HCL 20 MG TABLET PO SCH (08:28)
[2020-02-16] MEDS: DOXEPIN HCL 25 MG CAP PO SCH ×3 (08:28→19:49)
[2020-02-16] MEDS: NEOMY SULF/BACITRA/POLYMYXIN B 1 EACH PACKET TP SCH ×3 (08:28→19:26)
[2020-02-16] MEDS: AMLODIPINE 5 MG TAB PO SCH (08:28)
[2020-02-16 11:42] VITALS: BP 151/81
[2020-02-16] MEDS: CEFTRIAXONE 1G VIAL IVP SCH ×2 (11:59→23:06)
[2020-02-16 15:52] VITALS: BP 152/59
[2020-02-16] MEDS: ACETAMINOPHEN 325 MG TAB PO PRN (16:37)
[2020-02-16 19:15] VITALS: BP 135/66
[2020-02-16 23:49] VITALS: BP 135/62
[2020-02-17] MEDS: ACETAMINOPHEN 325 MG TAB PO PRN (00:25)
[2020-02-17 04:00] VITALS: BP 124/63
[2020-02-17] MEDS: INSULIN HUMULIN R 100 UNIT/ML 3ML SQ SCH ×4 (05:27→20:01)
[2020-02-17 05:52] LABS: BASOPHILS % (AUTO) 0.3 % (0.0-5.0); EOSINOPHILS % (AUTO) 6.4 % (0.0-8.0); HEMATOCRIT 23.7 % (36-48); LYMPHOCYTES % (AUTO) 9.8 % (21.0-51.0); MEAN CORPUSCULAR HEMOGLOBIN 30.8 pg (27.0-33.0); MEAN CORPUSCULAR HGB CONC 32.5 g/dL (32.0-36.0); MEAN CORPUSCULAR VOLUME 94.8 fL (79-99); MONOCYTES % (AUTO) 11.1 % (3.0-13.0); NEUTROPHILS % (AUTO) 72.1 % (40.0-77.0); PLATELET COUNT (AUTO) 145 K/uL (130-400); RED CELL DISTRIBUTION WIDTH 17.7 % (11.0-15.5); WHITE BLOOD COUNT (AUTO) 5.9 K/uL (4.8-10.8)
[2020-02-17 06:12] LABS: ALBUMIN 1.9 g/dL (3.5-5.0); BILIRUBIN,TOTAL 0.8 mg/dL (0.2-1.0); CREATININE 4.7 mg/dL (0.5-1.5); PHOSPHORUS 5.6 mg/dL (2.5-4.9); POTASSIUM 3.9 mmol/L (3.5-5.1); TOTAL PROTEIN, SERUM 6.8 g/dL (6.0-8.3)
[2020-02-17] MEDS: FAMOTIDINE 20MG VIAL IV SCH ×2 (07:51→20:07)
[2020-02-17] MEDS: DOXEPIN HCL 25 MG CAP PO SCH (07:52)
[2020-02-17] MEDS: NEOMY SULF/BACITRA/POLYMYXIN B 1 EACH PACKET TP SCH ×3 (07:52→20:08)
[2020-02-17] MEDS: AMLODIPINE 5 MG TAB PO SCH (07:52)
[2020-02-17] MEDS: CLOPIDOGREL 75MG TAB PO SCH (07:52)
[2020-02-17] MEDS: PAROXETINE HCL 20 MG TABLET PO SCH (07:52)
[2020-02-17 08:11] VITALS: BP 136/75
[2020-02-17 11:30] VITALS: BP 145/68
[2020-02-17] MEDS: CEFTRIAXONE 1G VIAL IVP SCH (12:17)
[2020-02-17] MEDS ORDERED: IPRATROPIUM/ALBUTEROL SULFATE 3 ML SOLUTION IH PRN (16:00)
[2020-02-17] MEDS ORDERED: IPRATROPIUM/ALBUTEROL SULFATE 3 ML SOLUTION IH SCH (16:00)
[2020-02-17 16:50] VITALS: BP 141/56
[2020-02-17 19:10] VITALS: BP 133/78
[2020-02-17] MEDS ORDERED: NALOXONE HCL 0.4 MG/1 ML ML ONE (22:54)
[2020-02-17 22:57] VITALS: BP 97/43
[2020-02-17] MEDS ORDERED: NALOXONE HCL 0.4 MG/1 ML ML IVP SCH (23:00)
[2020-02-17] MEDS ORDERED: ACETAMINOPHEN 650 MG SUPPOSITORY RC ONE (23:10)
[2020-02-18] VITALS (7 sets, daily range): BP systolic 100–151; BP diastolic 51–82
[2020-02-18] MEDS: CEFTRIAXONE 1G VIAL IVP SCH ×2 (00:19→13:02)
[2020-02-18] MEDS ORDERED: ACETAMINOPHEN 650 MG SUPPOSITORY RC PRN (02:45)
[2020-02-18 05:24] LABS: BASOPHILS % (AUTO) 0.2 % (0.0-5.0); EOSINOPHILS % (AUTO) 1.9 % (0.0-8.0); HEMATOCRIT 24.3 % (36-48); LYMPHOCYTES % (AUTO) 9.9 % (21.0-51.0); MEAN CORPUSCULAR HEMOGLOBIN 30.4 pg (27.0-33.0); MEAN CORPUSCULAR HGB CONC 32.1 g/dL (32.0-36.0); MEAN CORPUSCULAR VOLUME 94.6 fL (79-99); MONOCYTES % (AUTO) 12.3 % (3.0-13.0); NEUTROPHILS % (AUTO) 75.2 % (40.0-77.0); PLATELET COUNT (AUTO) 153 K/uL (130-400); RED BLOOD CELL COUNT(AUTO) 2.57 MIL/uL (4.00-5.50); RED CELL DISTRIBUTION WIDTH 17.8 % (11.0-15.5); WHITE BLOOD COUNT (AUTO) 6.2 K/uL (4.8-10.8)
[2020-02-18] MEDS: INSULIN HUMULIN R 100 UNIT/ML 3ML SQ SCH ×3 (05:30→21:00)
[2020-02-18 05:43] LABS: ALBUMIN 1.9 g/dL (3.5-5.0); CREATININE 3.5 mg/dL (0.5-1.5); POTASSIUM 3.4 mmol/L (3.5-5.1); TOTAL PROTEIN, SERUM 6.7 g/dL (6.0-8.3)
[2020-02-18 08:08] LABS: ABG HCO3 25.6 mmol/L (21.0-28.0); ABG PCO2 36 mmHg (32-45)
[2020-02-18] MEDS: CLOPIDOGREL 75MG TAB PO SCH (09:51)
[2020-02-18] MEDS: AMLODIPINE 5 MG TAB PO SCH (09:51)
[2020-02-18] MEDS: PAROXETINE HCL 20 MG TABLET PO SCH (09:51)
[2020-02-18] MEDS: FAMOTIDINE 20MG VIAL IV SCH ×2 (09:51→21:11)
[2020-02-18] MEDS: NEOMY SULF/BACITRA/POLYMYXIN B 1 EACH PACKET TP SCH ×3 (09:52→21:11)
[2020-02-19] MEDS: CEFTRIAXONE 1G VIAL IVP SCH ×3 (00:11→23:58)
[2020-02-19 04:21] VITALS: BP 149/78
[2020-02-19 04:57] LABS: BASOPHILS % (AUTO) 0.5 % (0.0-5.0); EOSINOPHILS % (AUTO) 5.1 % (0.0-8.0); HEMATOCRIT 26.1 % (36-48); LYMPHOCYTES % (AUTO) 10.9 % (21.0-51.0); MEAN CORPUSCULAR HEMOGLOBIN 30.7 pg (27.0-33.0); MEAN CORPUSCULAR HGB CONC 32.6 g/dL (32.0-36.0); MEAN CORPUSCULAR VOLUME 94.2 fL (79-99); NEUTROPHILS % (AUTO) 73.1 % (40.0-77.0); PLATELET COUNT (AUTO) 165 K/uL (130-400); RED BLOOD CELL COUNT(AUTO) 2.77 MIL/uL (4.00-5.50); RED CELL DISTRIBUTION WIDTH 17.5 % (11.0-15.5); WHITE BLOOD COUNT (AUTO) 5.7 K/uL (4.8-10.8)
[2020-02-19] MEDS: INSULIN HUMULIN R 100 UNIT/ML 3ML SQ SCH ×4 (05:02→20:36)
[2020-02-19 05:38] LABS: ALBUMIN 1.9 g/dL (3.5-5.0); BILIRUBIN,TOTAL 0.8 mg/dL (0.2-1.0); CREATININE 4.3 mg/dL (0.5-1.5); POTASSIUM 3.3 mmol/L (3.5-5.1); TOTAL PROTEIN, SERUM 6.7 g/dL (6.0-8.3)
[2020-02-19 08:00] VITALS: BP 159/78
[2020-02-19] MEDS: NEOMY SULF/BACITRA/POLYMYXIN B 1 EACH PACKET TP SCH ×3 (09:00→20:36)
[2020-02-19 12:00] VITALS: BP 158/78
[2020-02-19] MEDS: CLOPIDOGREL 75MG TAB PO SCH (12:45)
[2020-02-19] MEDS: FAMOTIDINE 20MG VIAL IV SCH ×2 (12:45→20:27)
[2020-02-19] MEDS: AMLODIPINE 5 MG TAB PO SCH (12:45)
[2020-02-19 16:00] VITALS: BP 152/62
[2020-02-19 20:57] VITALS: BP 157/74
[2020-02-20] VITALS: BP 172/88
[2020-02-20 04:57] VITALS: BP 167/86
[2020-02-20] MEDS: INSULIN HUMULIN R 100 UNIT/ML 3ML SQ SCH ×4 (05:42→20:28)
[2020-02-20 06:12] LABS: BASOPHILS % (AUTO) 0.2 % (0.0-5.0); EOSINOPHILS % (AUTO) 3.6 % (0.0-8.0); LYMPHOCYTES % (AUTO) 9.8 % (21.0-51.0); MEAN CORPUSCULAR HEMOGLOBIN 30.2 pg (27.0-33.0); MEAN CORPUSCULAR HGB CONC 32.3 g/dL (32.0-36.0); MEAN CORPUSCULAR VOLUME 93.5 fL (79-99); MONOCYTES % (AUTO) 13.6 % (3.0-13.0); NEUTROPHILS % (AUTO) 72.5 % (40.0-77.0); PLATELET COUNT (AUTO) 172 K/uL (130-400); RED BLOOD CELL COUNT(AUTO) 2.78 MIL/uL (4.00-5.50); RED CELL DISTRIBUTION WIDTH 17.6 % (11.0-15.5); WHITE BLOOD COUNT (AUTO) 6.3 K/uL (4.8-10.8)
[2020-02-20 06:37] LABS: BILIRUBIN,TOTAL 0.8 mg/dL (0.2-1.0); CREATININE 3.4 mg/dL (0.5-1.5); POTASSIUM 3.5 mmol/L (3.5-5.1); TOTAL PROTEIN, SERUM 6.8 g/dL (6.0-8.3)
[2020-02-20 08:00] VITALS: BP 148/78
[2020-02-20] MEDS: NEOMY SULF/BACITRA/POLYMYXIN B 1 EACH PACKET TP SCH ×3 (09:00→20:28)
[2020-02-20] MEDS: CLOPIDOGREL 75MG TAB PO SCH (09:26)
[2020-02-20] MEDS: FAMOTIDINE 20MG VIAL IV SCH ×2 (09:26→20:26)
[2020-02-20] MEDS: AMLODIPINE 5 MG TAB PO SCH (09:26)
[2020-02-20 11:00] VITALS: BP 171/94
[2020-02-20 16:00] VITALS: BP 133/80
[2020-02-20 20:26] VITALS: BP 132/85
[2020-02-21] VITALS (7 sets, daily range): BP systolic 118–166; BP diastolic 66–98
[2020-02-21 03:40] LABS: BASOPHILS % (AUTO) 0.2 % (0.0-5.0); EOSINOPHILS % (AUTO) 4.6 % (0.0-8.0); HEMATOCRIT 25.2 % (36-48); LYMPHOCYTES % (AUTO) 12.5 % (21.0-51.0); MEAN CORPUSCULAR HGB CONC 31.7 g/dL (32.0-36.0); MEAN CORPUSCULAR VOLUME 94.4 fL (79-99); MONOCYTES % (AUTO) 14.4 % (3.0-13.0); PLATELET COUNT (AUTO) 158 K/uL (130-400); RED BLOOD CELL COUNT(AUTO) 2.67 MIL/uL (4.00-5.50); RED CELL DISTRIBUTION WIDTH 18.1 % (11.0-15.5); WHITE BLOOD COUNT (AUTO) 6.1 K/uL (4.8-10.8)
[2020-02-21 04:04] LABS: BILIRUBIN,TOTAL 0.7 mg/dL (0.2-1.0); CREATININE 4.5 mg/dL (0.5-1.5); POTASSIUM 3.5 mmol/L (3.5-5.1); TOTAL PROTEIN, SERUM 6.7 g/dL (6.0-8.3)
[2020-02-21] MEDS: INSULIN HUMULIN R 100 UNIT/ML 3ML SQ SCH ×4 (06:09→20:56)
[2020-02-21] MEDS ORDERED: PHARMACY COMMUNICATION MISC PRN (11:15)
[2020-02-21] MEDS ORDERED: NITROGLYCERIN 0.4 MG SL TAB SL PRN (11:15)
[2020-02-21] MEDS ORDERED: HEPARIN 5,000 UNIT VIAL IJ PRN ×2 (11:15)
[2020-02-21] MEDS ORDERED: 0.9%NACL 1000ML 1,000 ML IV PRN (11:15)
[2020-02-21] MEDS ORDERED: 0.9%NACL 1000ML IV PRN (11:15)
[2020-02-21] MEDS ORDERED: LIDOCAINE HCL-MPF 1% 2ML VIAL IJ PRN (11:15)
[2020-02-21] MEDS: CLOPIDOGREL 75MG TAB PO SCH (13:03)
[2020-02-21] MEDS: ARIPIPRAZOLE 5 MG TABLET PO SCH ×2 (13:03→20:39)
[2020-02-21] MEDS: SEVELAMER HCL 800 MG TABLET PO SCH ×2 (13:03→16:59)
[2020-02-21] MEDS: AMLODIPINE 5 MG TAB PO SCH (13:04)
[2020-02-21] MEDS: NEOMY SULF/BACITRA/POLYMYXIN B 1 EACH PACKET TP SCH (13:04)
[2020-02-21] MEDS: FAMOTIDINE 20MG VIAL IV SCH ×2 (13:05→20:39)
[2020-02-22 04:00] LABS: BASOPHILS % (AUTO) 0.2 % (0.0-5.0); EOSINOPHILS % (AUTO) 5.4 % (0.0-8.0); HEMATOCRIT 26.3 % (36-48); LYMPHOCYTES % (AUTO) 11.5 % (21.0-51.0); MEAN CORPUSCULAR HEMOGLOBIN 30.1 pg (27.0-33.0); MEAN CORPUSCULAR HGB CONC 31.6 g/dL (32.0-36.0); MEAN CORPUSCULAR VOLUME 95.3 fL (79-99); MONOCYTES % (AUTO) 14.2 % (3.0-13.0); NEUTROPHILS % (AUTO) 68.5 % (40.0-77.0); PLATELET COUNT (AUTO) 157 K/uL (130-400); RED BLOOD CELL COUNT(AUTO) 2.76 MIL/uL (4.00-5.50); RED CELL DISTRIBUTION WIDTH 18.6 % (11.0-15.5); WHITE BLOOD COUNT (AUTO) 5.9 K/uL (4.8-10.8)
[2020-02-22 04:10] LABS: POTASSIUM 3.5 mmol/L (3.5-5.1)
[2020-02-22] MEDS: DIPHENHYDRAMINE HCL 25 MG CAPSULE PO PRN ×2 (06:13→15:27)
[2020-02-22] MEDS: SEVELAMER HCL 800 MG TABLET PO SCH ×3 (06:13→15:27)
[2020-02-22] MEDS: INSULIN HUMULIN R 100 UNIT/ML 3ML SQ SCH ×4 (06:27→22:04)
[2020-02-22 06:43] VITALS: BP 154/62
[2020-02-22 08:00] VITALS: BP 131/75
[2020-02-22] MEDS: ARIPIPRAZOLE 5 MG TABLET PO SCH ×2 (08:05→21:56)
[2020-02-22] MEDS: FAMOTIDINE 20MG VIAL IV SCH ×2 (08:05→21:57)
[2020-02-22] MEDS: AMLODIPINE 5 MG TAB PO SCH (08:05)
[2020-02-22] MEDS: CLOPIDOGREL 75MG TAB PO SCH (08:05)
[2020-02-22 12:00] VITALS: BP 146/78
[2020-02-22] MEDS: ZINC OXIDE OINT 56.7 GM TP SCH ×2 (15:04→22:05)
[2020-02-22 16:00] VITALS: BP 147/63
[2020-02-22 19:45] VITALS: BP 123/68
[2020-02-22] MEDS: ACETAMINOPHEN 325 MG TAB PO PRN (21:55)
[2020-02-22 23:07] VITALS: BP 154/64
[2020-02-23 03:34] VITALS: BP 138/78
[2020-02-23] MEDS: INSULIN HUMULIN R 100 UNIT/ML 3ML SQ SCH ×4 (05:41→20:37)
[2020-02-23 06:19] LABS: HEMATOCRIT 28.1 % (36-48); MEAN CORPUSCULAR HEMOGLOBIN 30.1 pg (27.0-33.0); RED BLOOD CELL COUNT(AUTO) 2.99 MIL/uL (4.00-5.50); RED CELL DISTRIBUTION WIDTH 18.5 % (11.0-15.5)
[2020-02-23 06:53] LABS: BILIRUBIN,DIRECT 0.3 mg/dL (0.0-0.3); BILIRUBIN,TOTAL 0.6 mg/dL (0.2-1.0); CREATININE 4.8 mg/dL (0.5-1.5); POTASSIUM 3.5 mmol/L (3.5-5.1); TOTAL PROTEIN, SERUM 7.1 g/dL (6.0-8.3)
[2020-02-23 08:00] VITALS: BP 138/70
[2020-02-23] MEDS: AMLODIPINE 5 MG TAB PO SCH (09:53)
[2020-02-23] MEDS: SEVELAMER HCL 800 MG TABLET PO SCH ×3 (09:53→17:21)
[2020-02-23] MEDS: CLOPIDOGREL 75MG TAB PO SCH (09:53)
[2020-02-23] MEDS: ARIPIPRAZOLE 5 MG TABLET PO SCH ×2 (09:53→19:25)
[2020-02-23] MEDS: FAMOTIDINE 20MG VIAL IV SCH ×2 (09:53→19:25)
[2020-02-23 12:00] VITALS: BP 153/75
[2020-02-23] MEDS: ACETAMINOPHEN 325 MG TAB PO PRN (12:18)
[2020-02-23 16:00] VITALS: BP 131/62
[2020-02-23] MEDS: ZINC OXIDE OINT 56.7 GM TP SCH ×2 (18:01→19:26)
[2020-02-23] MEDS: DIPHENHYDRAMINE HCL 25 MG CAPSULE PO PRN (19:25)
[2020-02-23 20:00] VITALS: BP 164/72
[2020-02-24 00:46] VITALS: BP 147/60
[2020-02-24 04:00] VITALS: BP 117/74
[2020-02-24] MEDS: INSULIN HUMULIN R 100 UNIT/ML 3ML SQ SCH ×4 (06:44→21:00)
[2020-02-24 06:46] LABS: BASOPHILS % (AUTO) 0.1 % (0.0-5.0); EOSINOPHILS % (AUTO) 1.3 % (0.0-8.0); HEMATOCRIT 26.9 % (36-48); LYMPHOCYTES % (AUTO) 5.8 % (21.0-51.0); MEAN CORPUSCULAR HEMOGLOBIN 30.7 pg (27.0-33.0); MEAN CORPUSCULAR HGB CONC 32.7 g/dL (32.0-36.0); MEAN CORPUSCULAR VOLUME 93.7 fL (79-99); MONOCYTES % (AUTO) 9.3 % (3.0-13.0); NEUTROPHILS % (AUTO) 83.1 % (40.0-77.0); PLATELET COUNT (AUTO) 197 K/uL (130-400); RED BLOOD CELL COUNT(AUTO) 2.87 MIL/uL (4.00-5.50); RED CELL DISTRIBUTION WIDTH 18.8 % (11.0-15.5); WHITE BLOOD COUNT (AUTO) 13.9 K/uL (4.8-10.8)
[2020-02-24 07:44] LABS: ALBUMIN 2.1 g/dL (3.5-5.0); BILIRUBIN,TOTAL 0.8 mg/dL (0.2-1.0); CREATININE 5.7 mg/dL (0.5-1.5); TOTAL PROTEIN, SERUM 7.2 g/dL (6.0-8.3)
[2020-02-24 08:00] VITALS: BP 161/74
[2020-02-24] MEDS: SEVELAMER HCL 800 MG TABLET PO SCH ×3 (08:44→17:56)
[2020-02-24] MEDS: ZINC OXIDE OINT 56.7 GM TP SCH ×2 (08:49→21:20)
[2020-02-24 12:00] VITALS: BP 141/71
[2020-02-24 16:00] VITALS: BP 142/70
[2020-02-24] MEDS: AMLODIPINE 5 MG TAB PO SCH (17:14)
[2020-02-24] MEDS: CLOPIDOGREL 75MG TAB PO SCH (17:14)
[2020-02-24] MEDS: ARIPIPRAZOLE 5 MG TABLET PO SCH ×2 (17:15→21:16)
[2020-02-24 20:11] VITALS: BP 116/54
[2020-02-24] MEDS: FAMOTIDINE 20MG TAB PO SCH (21:16)
[2020-02-25] VITALS (7 sets, daily range): BP systolic 127–149; BP diastolic 57–73
[2020-02-25 05:51] LABS: BASOPHILS % (AUTO) 0.3 % (0.0-5.0); EOSINOPHILS % (AUTO) 3.1 % (0.0-8.0); HEMATOCRIT 26.5 % (36-48); LYMPHOCYTES % (AUTO) 8.1 % (21.0-51.0); MEAN CORPUSCULAR HEMOGLOBIN 30.5 pg (27.0-33.0); MEAN CORPUSCULAR HGB CONC 32.5 g/dL (32.0-36.0); NEUTROPHILS % (AUTO) 78.1 % (40.0-77.0); PLATELET COUNT (AUTO) 175 K/uL (130-400); RED BLOOD CELL COUNT(AUTO) 2.82 MIL/uL (4.00-5.50); RED CELL DISTRIBUTION WIDTH 18.6 % (11.0-15.5); WHITE BLOOD COUNT (AUTO) 7.7 K/uL (4.8-10.8)
[2020-02-25 06:00] LABS: BILIRUBIN,TOTAL 0.7 mg/dL (0.2-1.0); CREATININE 3.9 mg/dL (0.5-1.5); POTASSIUM 3.1 mmol/L (3.5-5.1); TOTAL PROTEIN, SERUM 7.1 g/dL (6.0-8.3)
[2020-02-25] MEDS: INSULIN HUMULIN R 100 UNIT/ML 3ML SQ SCH ×4 (06:11→20:43)
[2020-02-25] MEDS: AMLODIPINE 5 MG TAB PO SCH (09:56)
[2020-02-25] MEDS: ZINC OXIDE OINT 56.7 GM TP SCH ×2 (09:56→21:38)
[2020-02-25] MEDS: ARIPIPRAZOLE 5 MG TABLET PO SCH ×2 (09:56→20:32)
[2020-02-25] MEDS: CLOPIDOGREL 75MG TAB PO SCH (09:56)
[2020-02-25] MEDS: SEVELAMER HCL 800 MG TABLET PO SCH ×3 (09:56→16:34)
[2020-02-25] MEDS: ALPRAZOLAM 0.5 MG TABLET PO SCH (20:32)
[2020-02-25] MEDS: FAMOTIDINE 20MG TAB PO SCH (20:36)
[2020-02-25] MEDS: DIPHENHYDRAMINE HCL 25 MG CAPSULE PO PRN (23:48)
[2020-02-26 03:40] VITALS: BP 151/65
[2020-02-26 04:31] LABS: BASOPHILS % (AUTO) 0.2 % (0.0-5.0); EOSINOPHILS % (AUTO) 4.5 % (0.0-8.0); HEMATOCRIT 25.1 % (36-48); LYMPHOCYTES % (AUTO) 9.7 % (21.0-51.0); MEAN CORPUSCULAR HEMOGLOBIN 30.7 pg (27.0-33.0); MEAN CORPUSCULAR HGB CONC 32.3 g/dL (32.0-36.0); MEAN CORPUSCULAR VOLUME 95.1 fL (79-99); MONOCYTES % (AUTO) 10.9 % (3.0-13.0); NEUTROPHILS % (AUTO) 74.4 % (40.0-77.0); PLATELET COUNT (AUTO) 174 K/uL (130-400); RED BLOOD CELL COUNT(AUTO) 2.64 MIL/uL (4.00-5.50); RED CELL DISTRIBUTION WIDTH 18.6 % (11.0-15.5)
[2020-02-26 04:42] LABS: ALBUMIN 1.9 g/dL (3.5-5.0); BILIRUBIN,TOTAL 0.6 mg/dL (0.2-1.0); CREATININE 4.6 mg/dL (0.5-1.5); POTASSIUM 3.3 mmol/L (3.5-5.1); TOTAL PROTEIN, SERUM 6.7 g/dL (6.0-8.3)
[2020-02-26] MEDS: INSULIN HUMULIN R 100 UNIT/ML 3ML SQ SCH ×4 (05:49→20:31)
[2020-02-26 07:46] VITALS: BP 137/68
[2020-02-26] MEDS: ZINC OXIDE OINT 56.7 GM TP SCH ×2 (09:00→20:33)
[2020-02-26] MEDS: ALPRAZOLAM 0.25 MG TABLET PO SCH (11:19)
[2020-02-26] MEDS: AMLODIPINE 5 MG TAB PO SCH (11:19)
[2020-02-26] MEDS: ARIPIPRAZOLE 5 MG TABLET PO SCH (11:19)
[2020-02-26] MEDS: DIPHENHYDRAMINE HCL 25 MG CAPSULE PO PRN (11:19)
[2020-02-26] MEDS: SEVELAMER HCL 800 MG TABLET PO SCH ×3 (11:19→17:00)
[2020-02-26] MEDS: CLOPIDOGREL 75MG TAB PO SCH (11:19)
[2020-02-26 11:35] VITALS: BP 134/75
[2020-02-26] MEDS ORDERED: HALOPERIDOL 1 MG TABLET PO PRN (15:15)
[2020-02-26 16:22] VITALS: BP 161/92
[2020-02-26 20:00] VITALS: BP 128/93
[2020-02-26] MEDS: ALPRAZOLAM 0.5 MG TABLET PO SCH ×3 (20:33→22:04)
[2020-02-26] MEDS: FAMOTIDINE 20MG TAB PO SCH ×3 (20:33→22:04)
[2020-02-27] VITALS (8 sets, daily range): BP systolic 0–165; BP diastolic 63–89
[2020-02-27 03:54] LABS: BASOPHILS % (AUTO) 0.3 % (0.0-5.0); EOSINOPHILS % (AUTO) 3.8 % (0.0-8.0); HEMATOCRIT 26.1 % (36-48); LYMPHOCYTES % (AUTO) 8.9 % (21.0-51.0); MEAN CORPUSCULAR HGB CONC 31.8 g/dL (32.0-36.0); MEAN CORPUSCULAR VOLUME 94.2 fL (79-99); MONOCYTES % (AUTO) 9.9 % (3.0-13.0); NEUTROPHILS % (AUTO) 76.6 % (40.0-77.0); PLATELET COUNT (AUTO) 178 K/uL (130-400); RED BLOOD CELL COUNT(AUTO) 2.77 MIL/uL (4.00-5.50); RED CELL DISTRIBUTION WIDTH 18.3 % (11.0-15.5); WHITE BLOOD COUNT (AUTO) 6.3 K/uL (4.8-10.8)
[2020-02-27 04:16] LABS: BILIRUBIN,TOTAL 0.6 mg/dL (0.2-1.0); CREATININE 5.4 mg/dL (0.5-1.5); POTASSIUM 3.7 mmol/L (3.5-5.1); TOTAL PROTEIN, SERUM 7.1 g/dL (6.0-8.3)
[2020-02-27] MEDS: INSULIN HUMULIN R 100 UNIT/ML 3ML SQ SCH (06:18)
[2020-02-27] MEDS: ALPRAZOLAM 0.25 MG TABLET PO SCH (10:53)
[2020-02-27] MEDS: AMLODIPINE 5 MG TAB PO SCH (10:53)
[2020-02-27] MEDS: CLOPIDOGREL 75MG TAB PO SCH (10:54)
[2020-02-27] MEDS ORDERED: ZOSYN 3.375GM +NS 50ML IV SCH (19:45)
[2020-02-27] MEDS ORDERED: VANCOMYCIN KIT 1 GM/250 ML IV.KIT IV SCH (19:45)
[2020-02-27] MEDS ORDERED: VANCOMYCIN PROTOCOL PER PHARMACY IV SCH (19:45)
[2020-02-27] MEDS ORDERED: MIDAZOLAM 100MG-0.9% NS 100ML 100 ML IV PRN (19:45)
[2020-02-27] MEDS ORDERED: NOREPINEPHRIN 4MG/NS 250ML 250 ML IV PRN (19:45)
[2020-02-27] MEDS ORDERED: FENTANYL 2500MCG+NS 250ML 250 ML IV PRN (19:45)
[2020-02-27 19:53] LABS: BASOPHILS % (AUTO) 0.7 % (0.0-5.0); EOSINOPHILS % (AUTO) 1.1 % (0.0-8.0); HEMATOCRIT 34.9 % (36-48); LYMPHOCYTES % (AUTO) 54.4 % (21.0-51.0); MEAN CORPUSCULAR HEMOGLOBIN 29.9 pg (27.0-33.0); MEAN CORPUSCULAR HGB CONC 28.9 g/dL (32.0-36.0); MEAN CORPUSCULAR VOLUME 103.3 fL (79-99); MONOCYTES % (AUTO) 12.1 % (3.0-13.0); NEUTROPHILS % (AUTO) 28.5 % (40.0-77.0); NUCLEATED RED BLOOD CELLS 0.3 % (0.0-0.19); PLATELET COUNT (AUTO) 146 K/uL (130-400); RED BLOOD CELL COUNT(AUTO) 3.38 MIL/uL (4.00-5.50); RED CELL DISTRIBUTION WIDTH 18.4 % (11.0-15.5); WHITE BLOOD COUNT (AUTO) 9.1 K/uL (4.8-10.8)
[2020-02-27] MEDS ORDERED: VANCOMYCIN 1G/250ML KIT 250 ML IV SCH (20:00)
[2020-02-27 20:05] LABS: CREATININE 3.8 mg/dL (0.5-1.5); POTASSIUM 5.2 mmol/L (3.5-5.1)
[2020-02-27 20:12] LABS: ABG BASE EXCESS -14.5 mmol/L (-2.0-3.0); ABG HCO3 18.4 mmol/L (21.0-28.0); ABG OXYGEN SATURATION 96.8 % (95.0-99.0); ABG PCO2 87 mmHg (32-45)
[2020-02-27] MEDS ORDERED: NOREPINEPHRINE BITARTRATE 32 MG in 0.9% NACL 250ML 250 ML IV PRN (20:15)
[2020-02-27] MEDS ORDERED: EPINEPHRINE PF 1MG AMP 10 MG in 0.9% NACL 250ML 250 ML IV SCH (20:15)
[2020-02-27 20:21] LABS: BILIRUBIN,TOTAL 0.9 mg/dL (0.2-1.0); MAGNESIUM 2.6 mg/dL (1.80-2.40); PHOSPHORUS 8.4 mg/dL (2.5-4.9); TOTAL PROTEIN, SERUM 7.1 g/dL (6.0-8.3)
[2020-02-27 20:28] LABS: TROPONIN I 0.09 ng/mL (0.00-0.06)
[2020-02-27] MEDS ORDERED: ZOSYN 3.375GM+NS 50ML 50 ML IV SCH (21:00)
[2020-02-27] MEDS ORDERED: SODIUM BICARB 8.4% 50ML SYRINGE IVP ONE (22:27)
[2020-02-27] MEDS ORDERED: EPINEPHRINE 1MG SYG 10ML IVP ONE (22:27)
[2020-02-27] MEDS ORDERED: NOREPINEPHRINE BITARTRATE 1 MG/1 ML ML IV ONE (22:27)
[2020-02-27] MEDS ORDERED: ATROPINE 1MG SYG IVP ONE (22:27)
[2020-02-28] MEDS ORDERED: FAMOTIDINE 20MG VIAL IV SCH (09:00)
== END 2020-02-27 22:28 | disposition expired | DRG 208 ==
LOC: EDH 16:35 → EDHIP 02-13 01:49 → 4BH 02-13 08:17 → 4CH 02-25 19:39 → 2DH 02-27 20:55
PROVIDERS: ADMIT Family Medicine; ATTEND Family Medicine
PROC: 5A1D70Z Performance of Urinary Filtration, Intermittent, Less than 6 Hours Per Day (ICD-10-PCS; 2020-02-13)
PROC: 5A1D70Z Performance of Urinary Filtration, Intermittent, Less than 6 Hours Per Day (ICD-10-PCS; 2020-02-14)
PROC: 5A1D70Z Performance of Urinary Filtration, Intermittent, Less than 6 Hours Per Day (ICD-10-PCS; 2020-02-17)
PROC: 5A1D70Z Performance of Urinary Filtration, Intermittent, Less than 6 Hours Per Day (ICD-10-PCS; 2020-02-19)
PROC: 5A1D70Z Performance of Urinary Filtration, Intermittent, Less than 6 Hours Per Day (ICD-10-PCS; 2020-02-21)
PROC: 5A1D70Z Performance of Urinary Filtration, Intermittent, Less than 6 Hours Per Day (ICD-10-PCS; 2020-02-24)
PROC: 5A1935Z Respiratory Ventilation, Less than 24 Consecutive Hours (ICD-10-PCS; principal; 2020-02-27)
PROC: 0BH17EZ Insertion of Endotracheal Airway into Trachea, Via Natural or Artificial Opening (ICD-10-PCS; 2020-02-27)
PROC: 5A12012 Performance of Cardiac Output, Single, Manual (ICD-10-PCS; 2020-02-27)
PROC: 5A1D70Z Performance of Urinary Filtration, Intermittent, Less than 6 Hours Per Day (ICD-10-PCS; 2020-02-27)
DX: J96.00 Acute respiratory failure, unspecified whether with hypoxia or hypercapnia (principal); G93.41 Metabolic encephalopathy; N18.6 End stage renal disease; E44.0 Moderate protein-calorie malnutrition; I13.2 Hypertensive heart and chronic kidney disease with heart failure and with stage 5 chronic kidney disease, or end stage renal disease; I46.9 Cardiac arrest, cause unspecified; D63.1 Anemia in chronic kidney disease; M48.061 Spinal stenosis, lumbar region without neurogenic claudication; R74.8 Abnormal levels of other serum enzymes; R53.81 Other malaise; W01.0XXA Fall on same level from slipping, tripping and stumbling without subsequent striking against object, initial encounter; E11.22 Type 2 diabetes mellitus with diabetic chronic kidney disease; R62.7 Adult failure to thrive; R29.6 Repeated falls; I50.9 Heart failure, unspecified; I25.10 Atherosclerotic heart disease of native coronary artery without angina pectoris; F41.9 Anxiety disorder, unspecified; F32.9 Major depressive disorder, single episode, unspecified; F60.7 Dependent personality disorder; F03.90 Unspecified dementia, unspecified severity, without behavioral disturbance, psychotic disturbance, mood disturbance, and anxiety; E11.51 Type 2 diabetes mellitus with diabetic peripheral angiopathy without gangrene; E78.5 Hyperlipidemia, unspecified; Z53.29 Procedure and treatment not carried out because of patient's decision for other reasons; R21 Rash and other nonspecific skin eruption; Z99.2 Dependence on renal dialysis; Z68.23 Body mass index [BMI] 23.0-23.9, adult; Y92.009 Unspecified place in unspecified non-institutional (private) residence as the place of occurrence of the external cause; Y93.9 Activity, unspecified; Y99.8 Other external cause status; Z82.5 Family history of asthma and other chronic lower respiratory diseases; Z83.3 Family history of diabetes mellitus; Z82.49 Family history of ischemic heart disease and other diseases of the circulatory system; Z80.9 Family history of malignant neoplasm, unspecified; Z95.1 Presence of aortocoronary bypass graft; Z98.51 Tubal ligation status; Z86.14 Personal history of Methicillin resistant Staphylococcus aureus infection; Z79.899 Other long term (current) drug therapy; Z91.19 Patient's noncompliance with other medical treatment and regimen
CPT/HCPCS: 31500; 36415; 36600; 70450; 71045; 74176; 76700; 76705; 80048; 80053; 80074; 80076; 80305; 82140; 82306; 82435; 82550; 82803; 82947; 82948; 83036; 83540; 83550; 83605; 83735; 83874; 83880; 84100; 84132; 84145; 84295; 84443; 84484; 85018; 85025; 85027; 87040; 87088; 87507; 90935; 92950; 93005; 93970; 94002; 94640; 94664; 97039; G0378; J0171; J0461; J0696; J0885; J1644; J1815; J2060; J2250; J2310; J2370; J2405; J3490; J7030; J7050; J7070; Q0163